=== PATIENT | male | born 1940 | race Caucasian/White ===

== ENCOUNTER 2016-08-25 12:56 | Emergency (ER) | payer OTHER, MEDICARE ==
[~2016-08-25 12:56] MED LIST: CLEAPOW6 PO; OXYC1SOL5 PO; RANI150 PO; RIVA10 PO; ZYRT10TA12 PO
[2016-08-25 13:20] VITALS: BP 173/81; PULSE 79; RESP 18; TEMP 97.6; O2SAT 96
[2016-08-25] MEDS ORDERED: ALLO100T PO (13:24)
[2016-08-25] MEDS ORDERED: ACETAMINOPHEN/HYDROcodone 325 MG/5 MG TAB PO ONE ×2 (13:30→15:30)
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
[2016-08-25 15:06] VITALS: PULSE 82; RESP 18; O2SAT 99
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
[2016-08-25] MEDS ORDERED: NAPROXEN 250 MG TAB PO ONE (15:30)
[2016-08-25] MEDS ORDERED: NAPR250T57 PO (15:32)
[2016-08-25] MEDS ORDERED: HYDR-3533 PO (15:32)
[2016-08-25] MEDS ORDERED: NAPROXEN 500 MG TAB PO ONE (16:30)
== END 2016-08-25 16:48 | disposition home or self-care (01) ==
LOC: NEPA 12:56
DX: M54.2 Cervicalgia (principal); M54.5 Low back pain; M25.552 Pain in left hip; Z96.642 Presence of left artificial hip joint; Z98.1 Arthrodesis status; V43.62XA Car passenger injured in collision with other type car in traffic accident, initial encounter; Y99.8 Other external cause status
CPT/HCPCS: 70450; 72072; 72110; 72125; 73502

== ENCOUNTER 2017-04-10 16:10 | Inpatient (IN) | payer MEDICARE ==
[2017-04-10] VITALS (9 sets, daily range): BP systolic 134–200; BP diastolic 74–98; PULSE 53–72; RESP 13–20; TEMP 97.7–98.2; O2SAT 95–98
[~2017-04-10] VITALS: Ht 182.9 cm; Wt 97.4 kg
[~2017-04-10 16:10] MED LIST changes: +ALLO100T PO; -CLEAPOW6 PO; +HYDR-3533 PO; +NAPR250T57 PO; -OXYC1SOL5 PO; -RANI150 PO; -RIVA10 PO; -ZYRT10TA12 PO
[2017-04-10] MEDS ORDERED: ALLO300T2 PO (16:35)
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
[2017-04-10] MEDS ORDERED: ONDANSETRON HCL 4 MG/2 ML VIAL IV PUSH ONE (17:30)
[2017-04-10] MEDS ORDERED: MECLIZINE HCL 25 MG TAB PO ONE (17:30)
[2017-04-10] MEDS ORDERED: cloNIDine HCL 0.1 MG TAB PO ONE (17:30)
[2017-04-10 17:44] LABS: AUTOMATED NEUTROPHIL # 2.6 TH/MM3 (1.8-7.7); BASOPHIL % 0.8 % (0.0-2.0); EOSINOPHIL # 0.2 TH/MM3 (0-0.4); EOSINOPHIL % 4.5 % (0.0-4.0); HEMATOCRIT 39.1 % (39.0-51.0); HEMO FLAGS DIFF FINAL; LYMPH % 29.3 % (9.0-44.0); LYMPHOCYTE # 1.3 TH/MM3 (1.0-4.8); MEAN CELL VOLUME 78.7 FL (80.0-100.0); MEAN CORPUSCULAR HEMOGLOBIN 26.6 PG (27.0-34.0); MEAN CORPUSCULAR HGB CONC 33.8 % (32.0-36.0); MONO % 8.8 % (0.0-8.0); NEUT % 56.6 % (16.0-70.0); PLATELET COUNT 140 TH/MM3 (150-450); RED BLOOD COUNT 4.97 MIL/MM3 (4.50-5.90); RED CELL DISTRIBUTION WIDTH 13.9 % (11.6-17.2); WHITE BLOOD COUNT 4.5 TH/MM3 (4.0-11.0)
[2017-04-10 17:53] LABS: CHLORIDE 106 MEQ/L (98-107); POTASSIUM 3.4 MEQ/L (3.5-5.1); SODIUM (NA) 140 MEQ/L (136-145)
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
[2017-04-10 17:57] LABS: ANION GAP 8 MEQ/L (5-15); BICARBONATE 26.1 MEQ/L (21.0-32.0); BLOOD UREA NITROGEN 13 MG/DL (7-18)
[2017-04-10 17:59] LABS: APTT (PATIENT) 25.7 SEC (24.3-30.1); PROTHROMBIN TIME - PATIENT 11.4 SEC (9.8-11.6)
[2017-04-10 18:00] LABS: ALT (GPT) 40 U/L (12-78); AST (GOT) 22 U/L (15-37); GLOMERULAR FILTRATION RATE 90 ML/MIN (>89)
[2017-04-10 18:01] LABS: TOTAL BILIRUBIN ADULT 0.6 MG/DL (0.2-1.0)
[2017-04-10 18:02] LABS: ALKALINE PHOSPHATASE 117 U/L (45-117)
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
[2017-04-10] MEDS ORDERED: ASPIRIN 325 MG TAB PO ONE (19:15)
[2017-04-10] MEDS ORDERED: SODIUM CHLORIDE 0.9% FLUSH 10 ML FLUSH IV FLUSH PRN (19:30)
[2017-04-10] MEDS ORDERED: SENNOSIDES 8.6 MG TAB PO PRN (19:30)
[2017-04-10] MEDS ORDERED: LACTULOSE SYRUP 20 GM/30 ML CUP PO PRN (19:30)
[2017-04-10] MEDS ORDERED: ONDANSETRON HCL 4 MG/2 ML VIAL IVP PRN (19:30)
[2017-04-10] MEDS ORDERED: MAGNESIUM HYDROXIDE SUSP 30 ML CUP PO PRN (19:30)
[2017-04-10] MEDS ORDERED: ACETAMINOPHEN 325 MG TAB PO PRN (19:30)
[2017-04-10] MEDS ORDERED: BISACODYL 10 MG SUPP RECTAL PRN (19:30)
[2017-04-10] MEDS ORDERED: MORPHINE SULFATE 4 MG/ML INJ IV PUSH PRN (19:30)
[2017-04-10] MEDS ORDERED: PILL SPLITTER OTHER PRN (20:00)
[2017-04-10] MEDS: SODIUM CHLOR 0.9% 1000 ML INJ 1,000 ML IV SCH (20:32)
[2017-04-10] MEDS: METOPROLOL TARTRATE 25 MG TAB PO SCH (21:31)
[2017-04-10] MEDS: SODIUM CHLORIDE 0.9% FLUSH 10 ML FLUSH IV FLUSH SCH (21:31)
[2017-04-10] MEDS: DOCUSATE SODIUM 50 MG/SENNA 8.6 MG TAB PO SCH (21:31)
[2017-04-11] VITALS (24 sets, daily range): BP systolic 115–186; BP diastolic 62–86; PULSE 53–76; RESP 15–32; TEMP 97.7–98.4; O2SAT 93–98
[2017-04-11] MEDS: SODIUM CHLOR 0.9% 1000 ML INJ 1,000 ML IV SCH ×2 (05:18→17:00)
[2017-04-11 08:26] LABS: CHLORIDE 106 MEQ/L (98-107); SODIUM (NA) 140 MEQ/L (136-145)
[2017-04-11 08:35] LABS: ANION GAP 6 MEQ/L (5-15); BICARBONATE 27.7 MEQ/L (21.0-32.0); BLOOD UREA NITROGEN 13 MG/DL (7-18)
[2017-04-11 08:37] LABS: ALT (GPT) 39 U/L (12-78); AST (GOT) 23 U/L (15-37); GLOMERULAR FILTRATION RATE 83 ML/MIN (>89)
[2017-04-11 08:38] LABS: TOTAL BILIRUBIN ADULT 0.8 MG/DL (0.2-1.0)
[2017-04-11] MEDS: ALLOPURINOL 300 MG TAB PO SCH (08:38)
[2017-04-11] MEDS: PRAVASTATIN SOD 40 MG TAB PO SCH (08:39)
[2017-04-11] MEDS: METOPROLOL TARTRATE 25 MG TAB PO SCH ×2 (08:39→20:24)
[2017-04-11] MEDS: ASPIRIN EC 81 MG TABEC PO SCH (08:39)
[2017-04-11] MEDS: DOCUSATE SODIUM 50 MG/SENNA 8.6 MG TAB PO SCH ×2 (08:39→20:24)
[2017-04-11 08:40] LABS: ALKALINE PHOSPHATASE 109 U/L (45-117); AUTOMATED NEUTROPHIL # 3.3 TH/MM3 (1.8-7.7); BASOPHIL % 0.5 % (0.0-2.0); EOSINOPHIL # 0.2 TH/MM3 (0-0.4); EOSINOPHIL % 3.9 % (0.0-4.0); HEMATOCRIT 38.9 % (39.0-51.0); HEMO FLAGS DIFF FINAL; LYMPH % 26.8 % (9.0-44.0); LYMPHOCYTE # 1.4 TH/MM3 (1.0-4.8); MEAN CORPUSCULAR HEMOGLOBIN 26.2 PG (27.0-34.0); MEAN CORPUSCULAR HGB CONC 33.2 % (32.0-36.0); MONO % 8.3 % (0.0-8.0); NEUT % 60.5 % (16.0-70.0); PLATELET COUNT 155 TH/MM3 (150-450); RED BLOOD COUNT 4.92 MIL/MM3 (4.50-5.90); RED CELL DISTRIBUTION WIDTH 13.7 % (11.6-17.2); WHITE BLOOD COUNT 5.3 TH/MM3 (4.0-11.0)
[2017-04-11] MEDS: SODIUM CHLORIDE 0.9% FLUSH 10 ML FLUSH IV FLUSH SCH ×2 (08:40→20:24)
[2017-04-11] MEDS ORDERED: INFLUENZA VIRUS VACCINE (QUADRIVALENT) 0.5 ML SYR IM ONE (10:00)
[2017-04-11] MEDS ORDERED: PNEUMOCOCCAL POLYVALENT INJ 25 MCG/0.5 ML SYR IM ONE (10:00)
[2017-04-11] MEDS ORDERED: LISINOPRIL 10 MG TAB PO SCH (12:15)
--- NOTE | 2017-04-11 13:28 | EKG ---
Date Performed: 04/10/2017 Time Performed: 20:15:59 PTAGE: 77 years EKG: SINUS BRADYCARDIA WITH FIRST DEGREE AV BLOCK RIGHT BUNDLE BRANCH BLOCK LEFT ANTERIOR FASCIC ULAR BLOCK ABNORMAL ECG PREVIOUS TRACING : 04/10/2017 17.31 DOCTOR: Meghan Ramirez Interpretating Date/Time 04/11/2017 13:27:24
--- NOTE | 2017-04-11 13:34 | EKG ---
Date Performed: 04/10/2017 Time Performed: 17:31:11 PTAGE: 77 years EKG: Sinus rhythm WITH SINUS ARRHYTHMIA WITH FIRST DEGREE AV BLOCK INTRAVENTRICULAR CONDUCTION DELAY ABNORMAL ECG PREVIOUS TRACING : 06/16/2011 11.47 Compared to prior tracing HR has increased, suspect interva l pacemker DOCTOR: Meghan Ramirez Interpretating Date/Time 04/11/2017 13:32:54
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
--- NOTE | 2017-04-11 17:44 | MB ---
cc: ZEYAD DURAN MD DATE OF CONSULTATION: 04/11/2017. REASON FOR CONSULTATION: Hypertension, elevated troponin. HISTORY OF PRESENT ILLNESS: The patient is very pleasant 77-year-old gentleman with no prior cardiac history who presents with a day or so of gait instability and generally feeling "dizzy" with some vague central chest tightness. He does admit to getting somewhat nervous about this and he drove to two different [employer] taking his blood pressure each time was elevated in the 180s and then presented to the emergency department where initial blood pressures were as high as 200/98. He was admitted to the ICU because his initial troponin was mildly elevated but the troponins have been flat and he has no further symptoms. He denies any further chest discomfort, lightheadedness, dizziness, shortness of breath.. PAST MEDICAL HISTORY: 1. Gout. 2. Osteoarthritis. 3. Lightheadedness. CURRENT MEDICATIONS: 1. Lisinopril 10 milligrams daily. 2. Aspirin 81 milligrams daily. 3. Pravachol 40 milligrams daily. 4. Lopressor 12.5 milligrams q. 12. ALLERGIES: NO KNOWN DRUG ALLERGIES. PHYSICAL EXAMINATION: VITAL SIGNS: Afebrile, pulse 76, respiratory rate 17, blood pressure 127/75, satting 95%. GENERAL: A pleasant well-appearing gentleman in no distress. NECK: No jugular venous distention. LUNGS: Clear to auscultation bilaterally. CARDIOVASCULAR: Regular rate and rhythm. No murmurs appreciated. ABDOMEN: Benign. EXTREMITIES: No edema. LABORATORY DATA: Sodium 140, potassium 4.0, chloride 106, bicarbonate 27.7, BUN 13, creatinine 0.89, glucose 107. Troponins are flat at 0.18 x4. White count 5.3, hematocrit 38.9, platelets 155,000. IMAGING STUDIES: Head CT showed no acute findings. Chest x-ray showed minimal atelectasis. EKGS: EKG showed sinus rhythm without any acute S-T or T wave changes. IMPRESSION: Elevated troponin. The patient's mild / flat troponin elevation is not consistent with acute coronary syndrome and most likely due to his elevated blood pressures. I do think he has some element of hypertension / anxiety spiral and I counselled the patient against over-taking his blood pressure. I do think it is reasonable to start him on low-dose Losartan for blood pressure control. To exclude ischemia, I will have him undergo a nuclear stress test tomorrow. Should the patient's blood pressure remain reasonably controlled and his stress test be nonischemic, he can be discharged home tomorrow. I will follow up with him in my office in a week or two for ongoing management. Thank you again for the opportunity to participate in this patient's care. MD BEBO Sandra/AMADA /5:00 PM /5:33 PM
[2017-04-12] VITALS (20 sets, daily range): BP systolic 135–171; BP diastolic 75–79; PULSE 53–71; RESP 16–24; TEMP 97.8–98.6; O2SAT 94–96
[2017-04-12] MEDS: SODIUM CHLOR 0.9% 1000 ML INJ 1,000 ML IV SCH ×3 (01:18→20:09)
[2017-04-12] MEDS: SODIUM CHLORIDE 0.9% FLUSH 10 ML FLUSH IV FLUSH SCH ×2 (09:00→20:08)
[2017-04-12] MEDS: LOSARTAN 50 MG TAB PO SCH (09:03)
[2017-04-12] MEDS: DOCUSATE SODIUM 50 MG/SENNA 8.6 MG TAB PO SCH ×2 (09:03→20:09)
[2017-04-12] MEDS: PRAVASTATIN SOD 40 MG TAB PO SCH (09:03)
[2017-04-12] MEDS: ASPIRIN EC 81 MG TABEC PO SCH (09:03)
[2017-04-12] MEDS: ALLOPURINOL 300 MG TAB PO SCH (09:04)
[2017-04-12 09:58] LABS: HDL CHOLESTEROL 31.4 MG/DL (40.0-60.0)
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
[2017-04-12] MEDS ORDERED: COZA50TA PO (11:32)
[2017-04-12] MEDS ORDERED: LIPI40TA PO (11:32)
[2017-04-12] MEDS ORDERED: ASPI-99 PO (11:32)
[2017-04-12] MEDS ORDERED: REGADENOSON INJ 0.4 MG/5 ML SYR IV ONE (11:56)
--- NOTE | 2017-04-12 13:08 | RADRPT ---
EXAM DATE/TIME: 04/12/2017 11:23 [facility] COMPARISON: No previous studies available for comparison. INDICATIONS : Elevated troponins with chest pain and dizziness for one day. Angina. DOSE: 26.1 mCi Tc99m Myoview at stress. 8.7 mCi Tc99m Myoview at rest. 0.4 mg Lexiscan STRESS SYMPTOMS: Shortness of breath. EJECTION FRACTION: 68% MEDICAL HISTORY : Gastroesophageal reflux disease. Osteoarthritis. SURGICAL HISTORY : Fusion, lumbar. ENCOUNTER: Initial ACUITY: 1 day PAIN SCALE: 5/10 LOCATION: Midsternal chest TECHNIQUE: The patient underwent pharmacologic stress with infusion of prescribed dose. Continuous ECG tracing was monitored during stress. Gated SPECT imaging was performed after stress and conventional SPECT i maging was performed at rest. The examination was performed on a SPECT/CT scanner, both attenuation and non-corrected datasets were reviewed. FINDINGS: DISTRIBUTION: The maximum perfused segment at stress is in the septal wall. PERFUSION STUDY: The pattern of perfusion at stress shows 10% redistribution in segments of the anterior wall with one image showing 20% redistribution in the mid anterior wall. This is identified on both the short axis and vertical long axis views and may represent a very small area of ischemia. GATED STUDY: There is intact wall motion and thickening without hypokinetic or dyskinetic segments. CONCLUSION: 1. Scintigraphic findings suggest a very small area of ischemia in the mid LAD distribution. 2. Excellent wall motion throughout with an estimated ejection fraction of 68%. RISK CATEGORY: Intermediate (1-3% Annual Mortality Rate) Fortino Huerta MD on April 12, 2017 at 12:33 Board Certified Radiologist. This report was verified electronically.
--- NOTE | 2017-04-12 16:55 | PD.CARD.PN ---
Subjective Subjective Remarks Pt feels well, no complaints. Objective Medications Current Medications Medications (Trade) Dose Ordered Sig/Popeye Route Start Time Stop Time Status Last Admin (Ecotrin Ec) 81 mg DAILY PO 04/11/17 09:00 04/12/17 09:03 (Pravachol) 40 mg DAILY PO 04/11/17 09:00 04/12/17 09:03 Sodium Chloride 1,000 ml @ 100 mls/hr Q10H IV 04/10/17 19:18 04/12/17 01:18 (NS Flush) 2 ml UNSCH PRN IV FLUSH 04/10/17 19:30 (NS Flush) 2 ml BID IV FLUSH 04/10/17 21:00 04/10/17 21:31 (Zofran Inj) 4 mg Q6H PRN IVP 04/10/17 19:30 (Tylenol) 650 mg Q6H PRN PO 04/10/17 19:30 (Percocet 5-325 Mg) 1 tab Q6H PRN PO 04/10/17 19:30 (Morphine Inj) 2 mg Q3H PRN IV PUSH 04/10/17 19:30 (Carrie-Colace) 1 tab BID PO 04/10/17 21:00 04/12/17 09:03 (Milk Of Magnesia Liq) 30 ml Q12H PRN PO 04/10/17 19:30 (Senokot) 17.2 mg Q12H PRN PO 04/10/17 19:30 (Dulcolax Supp) 10 mg DAILY PRN RECTAL 04/10/17 19:30 (Lactulose Liq) 30 ml DAILY PRN PO 04/10/17 19:30 (Zyloprim) 300 mg DAILY PO 04/11/17 09:00 04/12/17 09:04 (Pill Splitter) 1 ea UNSCH PRN OTHER 04/10/17 20:00 04/11/17 20:26 (Cozaar) 50 mg DAILY PO 04/12/17 09:00 04/12/17 09:03 (Lopressor) 50 mg Q12HR PO 04/12/17 21:00 UNV Vital Signs / I&O Vital Signs Date Time Temp Pulse Resp B/P (MAP) Pulse Ox O2 Delivery O2 Flow Rate FiO2 04/12/17 16:00 63 04/12/17 16:00 66 18 160/77 (104) 96 04/12/17 15:00 67 04/12/17 14:00 63 04/12/17 13:00 64 04/12/17 12:30 65 18 171/75 (107) 94 04/12/17 10:00 58 04/12/17 09:00 56 04/12/17 08:00 54 04/12/17 08:00 97.8 55 18 152/77 (102) 94 04/12/17 07:00 54 04/12/17 06:00 53 04/12/17 05:00 54 04/12/17 04:00 97.9 57 24 135/77 (96) 96 04/12/17 04:00 57 04/12/17 03:00 71 04/12/17 02:00 58 04/12/17 01:00 58 04/12/17 00:00 56 04/11/17 23:00 55 17 93 04/11/17 23:00 55 04/11/17 22:00 55 04/11/17 21:00 62 04/11/17 20:00 76 04/11/17 19:00 98.0 66 26 115/62 (79) 97 04/11/17 19:00 60 04/11/17 18:00 64 04/11/17 17:00 56 I/O 04/11/17 04/11/17 04/11/17 04/12/17 04/12/17 04/12/17 07:00 15:00 23:00 07:00 15:00 23:00 Intake Total 968 ml 1928 ml 1300 ml Output Total 350 ml 800 ml 800 ml Balance 618 ml 1128 ml 500 ml Intake Oral 120 ml 960 ml 0 ml IV Total 848 ml 968 ml 1300 ml Output Urine Total 350 ml 800 ml 800 ml # Bowel Movements 0 0 Physical Exam GENERAL: This is a well-nourished, well-developed patient, in no apparent distress. CARDIOVASCULAR: Regular rate and rhythm without murmurs, gallops, or rubs. RESPIRATORY: Clear to auscultation. Breath sounds equal bilaterally. No wheezes , rales, or rhonchi. GASTROINTESTINAL: Abdomen soft, non-tender, nondistended. Normal active bowel sounds MUSCULOSKELETAL: Extremities without clubbing, cyanosis, or edema. NEURO: Alert & Oriented x4 to person, place, time, situation. Moves all ext x4 Laboratory Laboratory Tests Test 04/12/17 04:18 Triglycerides Level 166 MG/DL Cholesterol Level 169 MG/DL LDL Cholesterol 104 MG/DL HDL Cholesterol 31.4 MG/DL Cholesterol/HDL Ratio 5.38 RATIO Imaging Last 24 hours Impressions Myocardial Perfusion Scan Nuc Med 04/12/17 0000 Signed Impressions: Service Date/Time: Wednesday, April 12, 2017 11:23 - CONCLUSION: 1. Scintigraphic findings suggest a very small area of ischemia in the mid LAD distribution. 2. Excellent wall motion throughout with an estimated ejection fraction of 68%%. RISK CATEGORY: Intermediate (1-3%% Annual Mortality Rate) Fortino Huerta MD Assessment and Plan Problem List: (1) Abnormal nuclear cardiac imaging test ICD Codes: R93.1 - Abnormal findings on diagnostic imaging of heart and coronary circulation Plan: Small anterior; discussed all options including medical mgt; pt/ uncomfortable w/ med mgt and want cath; has some exertional fatigue not clearly chest pain (2) Elevated troponin ICD Codes: R74.8 - Abnormal levels of other serum enzymes Status: Acute (3) Hypertensive urgency ICD Codes: I16.0 - Hypertensive urgency Plan: added low dose bb w/ hold parameters Assessment and Plan Will transfer and discuss cath with one of my partners. Duong Joiner MD Apr 12, 2017 16:55
[2017-04-12] MEDS: METOPROLOL TARTRATE 50 MG TAB PO SCH (20:09)
[2017-04-13] VITALS (11 sets, daily range): BP systolic 150–214; BP diastolic 70–95; PULSE 56–63; RESP 16–18; TEMP 97.9–98.7; O2SAT 94–97
[2017-04-13] MEDS ORDERED: HEPARIN-NS/PF INJ 1,500 ML ONE (08:40)
[2017-04-13] MEDS ORDERED: MIDAZOLAM HCL 2 MG/2 ML VIAL ONE (08:41)
[2017-04-13] MEDS ORDERED: NITROGLYCERIN INJ 5 ML ONE (08:41)
[2017-04-13] MEDS ORDERED: VERAPAMIL HCL 5 MG/2 ML VIAL ONE ×2 (08:41→09:48)
[2017-04-13] MEDS ORDERED: HEPARIN SODIUM - IV 10,000 UNITS/10 ML VIAL ONE (08:41)
[2017-04-13] MEDS: ASPIRIN EC 81 MG TABEC PO SCH (09:00)
[2017-04-13] MEDS: METOPROLOL TARTRATE 50 MG TAB PO SCH ×2 (09:00→20:51)
[2017-04-13] MEDS: PRAVASTATIN SOD 40 MG TAB PO SCH (09:00)
[2017-04-13] MEDS: DOCUSATE SODIUM 50 MG/SENNA 8.6 MG TAB PO SCH ×2 (09:00→20:51)
[2017-04-13] MEDS: ALLOPURINOL 300 MG TAB PO SCH (09:00)
[2017-04-13] MEDS: LOSARTAN 50 MG TAB PO SCH (09:00)
[2017-04-13] MEDS ORDERED: ceFAZolin INJ 1,000 MG VIAL ONE (09:51)
--- NOTE | 2017-04-13 10:45 | CATHPROC ---
[employer] HIS Report Study Information Study Number Admission Scheduled Start Study Start [id number] Apr 10 2017 7:21PM 04/12/2017 Apr 13 2017 8:02AM [place] [facility] Cardiac Catheterization Admit Source Facility Department Transfer in from another acute care facility [facility] - [facility] Physician and Clinical Staff Initial [facility] Practice Administratormarion Billingsley RN, Musa Moya RN Recorder Mariely Miranda,RT(R) Scr[employer]y [employer] RCIS(BS) Procedures Performed Procedure Location (Site) Vessel Name Coronary Angiograms LCA Left Coronary Coronary Angiograms RCA Right Coronary L Heart Cath Wire insertion Radial (right) Radial Art. Equipment Time Junior Sales Assistant Description Size Mfg Part Number Used/Scraped [id number] 09:56 [employer] MEDICAL WIRE, NITONOL 80CM 80CM Used *[id number] TRANSDUCER, TRUWAVE [id number] 08:55 PRICE COELHO * Used W/STOCKCOCK *[id number] 534-676T *[id number] 534-676T *[id number] 534-518T *[id number] 534-618T *[id number] 534-620T *[id number] 534-521T *[id number] 08:55 [employer] PACK, CCL CUSTOM * Used *[id number] 08:55 [employer] SUPPORT, ARTERIAL ADULT [id number] *[id number] Used BAND, RADIAL COMPRESSION TR [id number] 10:18 [employer] MEDICAL 29CM Used LARGE 29 *[id number] 08:55 RF Code WIRE, EXCHANGE 260CM 3MMJ 260CM Used *[id number] 08:55 NAMIC MANIFOLD, 4 PORT * Used *[id number] 08:55 NYCOMED OMNIPAQUE, 350 MG, 150ML 150ML [id number] Used [id number] 08:55 [employer] MEDICAL BLANKET,WARM AIR CCL * Used *[id number] SHEATH, FR6 TRANSRADIAL [id number] 08:55 TERContestMachine FR 6 Used SLENDER 10CM *[id number] History: Current Medications Medication Dosage/Unit Route Frequency Last Date/Time Taken ASA Statins (any) Allopurinol History: Allergies Allergy Reaction No Known Allergies History: Risk Factors Family History of Hypertension Dyslipidemia Previous TN Previous Heart Failure Premature CAD Yes Yes No No No Prior Valve Prior PCI Prior CABG Surgery No No No Cerebrovascular Peripheral Artery Chronic Lung On Dialysis Diabetes Disease Disease Disease No No No No No History: Symptoms/Diagnosis Selection Items Chest pain SOB History: Stress Tests Stress or Imaging Studies Performed Yes Standard Exercise Stress Test No Stress Echo No Stress Test SPECT Stress Test SPECT Result Stress Test SPECT Ischemia Risk/Extent Yes Positive Intermediate Stress Test CMR No Cardiac CTA Coronary Calcium Score No No History: Other Disease Selection Items HTN History: Other Current Smoker No Labs Hgb (g/dl) Hct (%) WBC (l/cumm) Platelets (thousands) 11.60-17.00 35.00-51.00 4.00-11.00 150.00-450.00 12.9 38.9 5.3 155 Glucose (mg/dl) BUN (mg/dl) Creatinine (mg/dl) BUN:Creatinine (1:x) 74.00-106.00 7.00-18.00 0.50-1.30 10.00-20.00 107 13 0.9 14.4 Na (meq/l) K (meq/l) 136.00-145.00 3.50-5.10 140 4 INR (PTT:PT) 0.90-1.10 1 Troponin I (ng/ml) CPK (u/l) 0.02-0.05 26.00-308.00 0.2 67 Medication Medication Total Dose (Bolus/Oral) Medication Total Dosage/Unit 1% XYLOCAINE 20 mL FENTANYL 25 mcg RADIAL COCKTAIL 5 mL (Bolus) VERSED 0.5 mg Medications (Bolus/Oral) Medication Time Given Dosage/Unit Administered By Reason FENTANYL 04/13/2017 8:59:00 AM 25 mcg Ky Billingsley RN 25 mcg FENTANYL given in lab by Ky Billingsley RN via Peripheral IV. VERSED 04/13/2017 9:00:31 AM 0.5 mg yK Billingsley RN 0.5 mg VERSED given in lab by Ky Billingsley RN via Peripheral IV. 1% XYLOCAINE 04/13/2017 9:00:45 AM 20 mL Pietro Menon 20 mL 1% XYLOCAINE given in lab by Pietro Menon in Right Radial via Subcutaneous. Ntg 200mcg Verapamil 2.5mg Heparin RADIAL COCKTAIL 04/13/2017 9:02:30 AM 5 mL (Bolus) Pietro Menon 3000U 5 mL (Bolus) RADIAL COCKTAIL given in lab by Pietro Menon via Radial. Using [Solution Name]. R hal: Ntg 200mcg Verapamil 2.5mg Heparin 3000U. HEPARIN 4000U Medication (Drip) Medication Time Given Dosage/Unit Concentration/Unit Diluent (ml) Solution ANCEF 04/13/2017 9:55:29 AM 1 g 1 g ANCEF given in lab by Ky Billingsley RN via Peripheral IV. IV Solutions 04/13/2017 8:33:51 AM 0 mL (IV) 500 NaCl .9 Patient arrived on IV Solutions in Left Antecubital via Peripheral IV. Pump/Drip Flow = 20 ml/hr usin g NaCl .9. Initial Case Assessment Cardiovascular HR Rhythm NIBP Chest Pain 65 reg 184/8 0 Edema Present Skin color Skin None Normal Warm Circulatory - Right Pulses Dorsalis Pedis Femoral Radial 1 3 3 Scale (0,1,2,3,4,d) Scale (0,1,2,3,4,d) Circulatory - Lower Extremities Color Lower Right Normal Neurological State Oriented to time-place- Alert Moves all extremities person Respiration - General Respiration Rate SpO2 (%) (B/min) 22 97 Final Case Assessment Cardiovascular HR Rhythm NIBP Chest Pain 60 REG 173/83 0 Edema Present Skin color Skin None Normal Warm Circulatory - Right Pulses Dorsalis Pedis Femoral Radial 2 3 3 Scale (0,1,2,3,4,d) Scale (0,1,2,3,4,d) Circulatory - Lower Extremities Color Lower Right Normal Neurological State Oriented to time-place- Alert Moves all extremities person Respiration - General Respiration Rate SpO2 (%) (B/min) 15 95 Chronological Log Time Study Chronological Log 8:33:32 Patient arrived via Bed. 8:33:33 Patient Name, D.O.B, / Armband Verified By R.N. 8:33:34 Consent signed by the physician and the patient and verified by the [facility] Aud[facility] staff. 8:33:34 Pre-op and post- op instructions given; patient acknowledges understanding of instructions. 8:33:35 Verbal Stimulation=2 Physical Stimulation=2 Airway=2 Respiration=2 TOTAL=8. (0=absent, 1=li mited, 2=present) 8:33:37 Allens test performed on the right radial and ulnar artery. 8:33:42 Patient has been NPO for More than 6Hrs. 8:33:43 Skin Breakdown-RIGHT GROIN RED 8:33:45 Patient Warmer Placed on the Table. 8:33:51 A # 20 IV was noted in the Antecubital (left). Grade = 0 8:33:51 Patient arrived on IV Solutions in Left Antecubital via Peripheral IV. Pump/Drip Flow = 20 ml/hr using NaCl .9. 8:33:52 History and physical on the chart or being dictated. Assessment: Initial Case, HR=65 BPM, Rhythm=reg, YWHB=194/8 mmhg, Chest Pain=0, Edema=None, Col or=Normal, Skin = Warm Right Pulses: Isidro Ped=1, Femoral=3, Radial=3 8:33:53 Lower Right Extremities: Color=Normal Neurological: State=Alert, Ox3, [place] Respiration: Resp=22 B/min, SpO2=97 % Vitals capture started with the following parameters, Patient=Adult, Interval=5 min, Initial Pr deyjnn=650 mmHg, 8:44:04 Deflation Rate=5 mmHg, Cuff placed on left Arm 8:44:46 Reference ECG taken 8:45:22 HR=61 bpm, TXIW=185/87 mmhg, SpO2=96.0 %, Resp=19 B/min, Pain=0, Chema=10, Menjivar=2 8:50:29 HR=62 bpm, JXTD=024/86 mmhg, SpO2=96.0 %, Resp=19 B/min, Pain=0, Chema=10, Menjivar=2 8:55:03 MD arrived. 8:55:06 Right radial, right brachial, and groin(s) prepped with 2% chlorhexidine, and draped after a 3 min. waiting time. 8:56:14 HR=62 bpm, TBVY=979/93 mmhg, SpO2=96.0 %, Resp=19 B/min, Pain=0, Chema=10, Menjivar=2 8:57:26 Pressure channel 1 zeroed. 8:59:00 25 mcg FENTANYL given in lab by Ky Billingsley RN via Peripheral IV. Time Out. Correct patient, correct procedure, correct physician, power injector not loaded with contrast with surgical 8:59:21 team present. Time Out Concurred by MD and individual staff in procedure. 8:59:29 Case Start 8:59:47 HR=64 bpm, XSPP=548/103 mmhg, SpO2=96.0 %, Resp=17 B/min, Pain=0, Chema=10, Menjivar=2 9:00:31 0.5 mg VERSED given in lab by Ky Billingsley RN via Peripheral IV. 9:00:45 20 mL 1% XYLOCAINE given in lab by Pietro Menon in Right Radial via Subcutaneous. 9:01:51 Access site was Radial Artery. RIGHT 9:02:10 A wire was inserted via Radial (right). A SHEATH, FR6 TRANSRADIAL SLENDER 10CM FR 6 was advanced into the Radial (right) using the Percu taneous 9:02:22 technique. 5 mL (Bolus) RADIAL COCKTAIL given in lab by Pietro Menon via Radial. Using [Solution Nam e]. Reason: Ntg 9:02:30 200mcg Verapamil 2.5mg Heparin 3000U. HEPARIN 4000U A JR 4.0 INFINITI CATHETER FR 5 was advanced over a wire. OMNIPAQUE, 350 MG, 150ML 150ML was use d for 9:03:01 injections. Recorded Pressure: Ao, HR=65, Condition=Condition 1 9:04:35 (Aorta) Ao 139/69/99 9:04:52 HR=61 bpm, XORO=431/79 mmhg, SpO2=92.0 %, Resp=17 B/min, Pain=0, Chema=10, Menjivar=2 9:09:38 HR=60 bpm, FULA=044/76 mmhg, SpO2=91.0 %, Resp=18 B/min, Pain=0, Chema=10, Menjivar=2 9:10:09 BLOOD PRESSURE CUFF IS ON SAME SIDE O2 SAT 9:14:44 HR=58 bpm, TTRW=781/75 mmhg, SpO2=91.0 %, Resp=15 B/min, Pain=0, Chema=10, Menjivar=2 9:15:22 REBOOT IN PROGRESS 9:19:43 HR=58 bpm, FMRW=509/87 mmhg, SpO2=93 %, Resp=17 B/min, Pain=0, Chema=10, Menjivar=2 9:24:46 HR=58 bpm, CYZN=354/88 mmhg, SpO2=92.0 %, Resp=18 B/min, Pain=0, Chema=10, Menjivar=2 9:24:55 DR SCRUBBED BACK IN A 3DRC INFINITI CATHETER FR 6 was advanced over a wire. OMNIPAQUE, 350 MG, 150ML 150ML was used for 9:26:40 injections. 9:28:44 NO COMMUNICATION WITH XRAY. PATIENT BEING MOVED TO ANOTHER ROOM 9:29:38 Vitals capture stopped. Vitals capture started with the following parameters, Patient=Adult, Interval=5 min, Initial Pre rudcw=698 mmHg, 9:40:32 Deflation Rate=5 mmHg 9:41:10 HR=62 bpm, VRFN=828/86 mmhg, SpO2=95.0 %, Resp=17 B/min, Pain=0, Chema=10, Menjivar=2 9:43:56 Reference ECG taken 9:44:28 pt in lab 5 9:46:13 HR=59 bpm, APRS=381/79 mmhg, SpO2=94.0 %, Resp=15 B/min, Pain=0, Chema=10, Menjivar=2 9:51:14 HR=59 bpm, FDNS=433/79 mmhg, SpO2=94.0 %, Resp=17 B/min, Pain=0, Chema=10, Menjivar=2 9:53:25 Pressure channel 1 zeroed. Time Out. Correct patient, correct procedure, correct physician, power injector not loaded with contrast with surgical 9:55:26 team present. Time Out Concurred by MD and individual staff in procedure. 9:55:29 1 g ANCEF given in lab by Ky Billingsley RN via Peripheral IV. 9:56:13 HR=57 bpm, ABER=628/80 mmhg, SpO2=95.0 %, Resp=18 B/min, Pain=0, Chema=10, Menjivar=2 9:56:13 Case Start A SHEATH, FR6 TRANSRADIAL SLENDER 10CM FR 6 was exchanged in the Radial (right). This was brooke sahu in order 9:56:52 to insure sterility. A 3DRC INFINITI CATHETER FR 6 was advanced over a wire. OMNIPAQUE, 350 MG, 150ML 150ML was used for 9:58:30 injections. Recorded Pressure: Ao, HR=61, Condition=Condition 1 10:00:54 (Aorta) Ao 157/65/103 10:01:10 HR=59 bpm, VHER=052/82 mmhg, SpO2=95.0 %, Resp=19 B/min, Pain=0, Chema=10, Menjivar=2 10:03:57 The RCA was injected and visualized at various angles. OMNIPAQUE, 350 MG, 150ML 150ML used . After removing the current catheter a JL 4.0 INFINITI CATHETER FR 6 was advanced over a WIRE, E XCHANGE 260CM 10:06:00 3MMJ 260CM. 10:06:11 HR=63 bpm, OYJK=410/80 mmhg, SpO2=94.0 %, Resp=18 B/min, Pain=0, Chema=10, Menjivar=2 After removing the current catheter a JL 3.5 INFINITI CATHETER FR 6 was advanced over a WIRE, E XCHANGE 260CM 10:10:21 3MMJ 260CM. 10:11:49 HR=60 bpm, JNDA=410/80 mmhg, SpO2=95.0 %, Resp=17 B/min, Pain=0, Chema=10, Menjivar=2 10:14:34 The LCA was injected and visualized at various angles. OMNIPAQUE, 350 MG, 150ML 150ML used . 10:16:13 HR=59 bpm, TQXZ=814/73 mmhg, SpO2=95.0 %, Resp=18 B/min, Pain=0, Chema=10, Menjivar=2 10:17:44 Catheter was removed OVER A WIRE Assessment: Final Case, HR=60 BPM, Rhythm=REG, QVEU=870/83 mmhg, Chest Pain=0, Edema=None, Glasgow r=Normal, Skin = Warm Right Pulses: Isidro Ped=2, Femoral=3, Radial=3 10:20:54 Lower Right Extremities: Color=Normal Neurological: State=Alert, Ox3, [place] Respiration: Resp=15 B/min, SpO2=95 % 10:21:14 HR=64 bpm, SLQX=219/83 mmhg, SpO2=95.0 %, Resp=13 B/min, Pain=0, Chema=10, Menjivar=2 10:21:39 Catheter(s) removed without difficulty Radial Compression Device Used. 14 mLs of air placed in BAND, RADIAL COMPRESSION TR LARGE 29 29 CM. Affected 10:21:43 hand 97 % O2 saturation. 10:22:08 Case End 10:22:14 Sterile dressing applied to site 10:22:14 No case complications noted. 10:22:17 Cine recording checked. 10:22:19 Bedside Report will be given. 10:22:22 Contrast Scanned 10:22:28 Verbal Stimulation=2 Physical Stimulation=2 Airway=2 Respiration=2 TOTAL=8. (0=absent, 1=li mited, 2=present) 10:22:54 A Left Heart Cath was performed. 10:22:59 Clinical correlaton risk stratification. End Study - Contrast Media Used In Study Contrast Total Opened (mL) Total Used (mL) Total Wasted (mL) Omnipaque 110 110 0 End Study - Maximum Contrast Load Max Contrast Load (mL) 544.4 End Study - Radiation Exposure Fluoro Time (minutes) 3.0 End Study - Sheaths Sheaths Pulled By Sheath Hold Time (min) Pietro Menon End Study - Patient Disposition Complications Transferred To Interventional Outcome Not selected Outpatient Bed No attempt made
--- NOTE | 2017-04-13 11:04 | MA ---
cc: PIETRO GALAVIZ DO DATE: 04/13/2017 PROCEDURE Coronary angiogram, moderate sedation 75 minutes. PREPROCEDURE DIAGNOSIS Chest pain, abnormal stress test. POSTPROCEDURE DIAGNOSIS Multivessel coronary artery disease. MEDICATIONS Fentanyl 25 mcg, Versed 0.5 mg, Ancef one gram, nitro 200 mcg, verapamil 2.5 mg, heparin 4000 units. CONTRAST USED 110 cc. FLUOROSCOPY TIME 8.2 minutes. SEDATION Moderate sedation, 75 minutes. ESTIMATED BLOOD LOSS 10 cc. PROCEDURAL SUMMARY Orlando Arnold is a pleasant 77-year-old male who originally presented to [facility] due to chest pressure and headache. He was found to be quite hypertensive with a mildly elevated troponin. Because of this he was recommended stress testing and during this was found to have anterior ischemia. Because of this he was recommended cardiac catheterization. Risks, benefits and alternatives were explained to him and he consented as such. He was brought to the lab and prepped in the usual sterile fashion. The right radial artery was accessed using a modified Seldinger technique and placement of a 5/6 Argentine sheath. This was easily aspirated and flushed. A JR4 was advanced over a J-wire to the ascending aorta, but was unable to cross the valve or engage the right coronary artery. This was then exchanged out for a 6 Argentine 3-D RC which was placed in the aortic root. At this time the laborer brush clearing system shut down and it was reset, but was unable to be restarted at the time and so everything was removed and Tegaderm was placed over his radial sheath. Upon setting up in another room the radial sheath was re-scrubbed and then exchanged out for a new 5/6 Argentine sheath. The patient was given a gram of Ancef. A new 3-D RC was then advanced to the ascending aorta and used for selective angiography of the right coronary artery. This was exchanged out for a JL4 which was unable to engage the left main and so this was exchanged out for a JL 3.5 which was used for selective angiography of the left coronary artery system. The JL 3.5 was removed over a J-wire. A radial band was placed over the arteriotomy site for hemostasis. The patient left the laborer brush clearing cardiovascularly stable. FINDINGS Left Main: Normal size vessel with adequate reflux and no disease. It bifurcates into an LAD and circumflex. LAD: Normal size vessel with the midportion having tandem lesions of 90% with a qfy-sv-ifxkom lesion of 70%. It gives off two major diagonals with the second diagonal being larger and having a 70% lesion. Left Circumflex: Normal size vessel with mild luminal irregularities throughout the proximal portion and then an 80% lesion in the midportion. It gives off one obtuse marginal which has an 80% lesion. RCA: Normal size vessel with mild luminal irregularities. It is a dominant vessel by nature and there is an 80% lesion in the PDA. IMPRESSION 1. Multivessel disease as above. 2. Accelerated hypertension. 3. Chest tightness on arrival with mildly elevated troponins. RECOMMENDATIONS 1. Mr. Arnold appears to have multivessel disease and because of this he will be recommended consideration of cardiothoracic surgery. 2. Will check an echo to look at his overall left ventricular function, cardiac structure and possible valvulopathies in anticipation of CT surgery. 3. Will discuss this with the patient and the surgeon about timing of surgery. 4. Further recommendations will be made after CT surgery evaluation. Thank you for allowing me to see Orlando Arnold. If there are any questions, please do not hesitate to call. Pietro Galaviz DO VGP/BT /10:36 AM /10:51 AM
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
[2017-04-13] MEDS ORDERED: IOHEXOL 350 MG/ML 100 ML BTL (for Cath Lab) OTHER ONE (13:47)
[2017-04-13] MEDS ORDERED: IOHEXOL 350 MG/ML 50 ML BTL (for Cath Lab) OTHER ONE (13:47)
[2017-04-13] MEDS: cefTRIAXone INJ 1,000 MG in SODIUM CHLORIDE 0.9% INJ 100 ML IV SCH (16:23)
--- NOTE | 2017-04-13 17:00 | PD.CARD.PN ---
Subjective Subjective Remarks Pt feels well, no complaints, cath results noted Objective Medications Current Medications Medications (Trade) Dose Ordered Sig/Popeye Route Start Time Stop Time Status Last Admin (Ecotrin Ec) 81 mg DAILY PO 04/11/17 09:00 04/13/17 09:00 (Pravachol) 40 mg DAILY PO 04/11/17 09:00 04/13/17 09:00 Sodium Chloride 1,000 ml @ 100 mls/hr Q10H IV 04/10/17 19:18 04/12/17 20:09 (NS Flush) 2 ml UNSCH PRN IV FLUSH 04/10/17 19:30 (NS Flush) 2 ml BID IV FLUSH 04/10/17 21:00 04/12/17 20:08 (Zofran Inj) 4 mg Q6H PRN IVP 04/10/17 19:30 (Tylenol) 650 mg Q6H PRN PO 04/10/17 19:30 (Percocet 5-325 Mg) 1 tab Q6H PRN PO 04/10/17 19:30 (Morphine Inj) 2 mg Q3H PRN IV PUSH 04/10/17 19:30 (Carrie-Colace) 1 tab BID PO 04/10/17 21:00 04/13/17 09:00 (Milk Of Magnesia Liq) 30 ml Q12H PRN PO 04/10/17 19:30 (Senokot) 17.2 mg Q12H PRN PO 04/10/17 19:30 (Dulcolax Supp) 10 mg DAILY PRN RECTAL 04/10/17 19:30 (Lactulose Liq) 30 ml DAILY PRN PO 04/10/17 19:30 (Zyloprim) 300 mg DAILY PO 04/11/17 09:00 04/13/17 09:00 (Pill Splitter) 1 ea UNSCH PRN OTHER 04/10/17 20:00 04/11/17 20:26 (Cozaar) 50 mg DAILY PO 04/12/17 09:00 04/13/17 09:00 (Lopressor) 50 mg Q12HR PO 04/12/17 21:00 04/13/17 09:00 Ceftriaxone Sodium 1000 mg/ Sodium Chloride 100 ml @ 200 mls/hr Q24H IV 04/13/17 15:00 04/13/17 16:23 Vital Signs / I&O Vital Signs Date Time Temp Pulse Resp B/P (MAP) Pulse Ox O2 Delivery O2 Flow Rate FiO2 04/13/17 10:37 96 Room Air 04/13/17 07:50 57 18 214/95 (134) 97 04/13/17 04:00 98.1 58 16 175/76 (109) 97 04/13/17 00:00 98.6 56 16 152/78 (102) 94 04/13/17 00:00 56 04/12/17 20:15 59 04/12/17 20:00 98.6 59 16 156/79 (104) 95 04/12/17 18:00 70 04/12/17 17:00 63 I/O 04/12/17 04/12/17 04/12/17 04/13/17 04/13/17 04/13/17 07:00 15:00 23:00 07:00 15:00 23:00 Intake Total 1300 ml 480 ml 1000 ml Output Total 800 ml 1100 ml 1200 ml Balance 500 ml -620 ml -200 ml Intake Oral 0 ml 480 ml IV Total 1300 ml 1000 ml Output Urine Total 800 ml 1100 ml 1200 ml # Voids 4 # Bowel Movements 0 0 Physical Exam GENERAL: This is a well-nourished, well-developed patient, in no apparent distress. CARDIOVASCULAR: Regular rate and rhythm without murmurs, gallops, or rubs. RESPIRATORY: Clear to auscultation. Breath sounds equal bilaterally. No wheezes , rales, or rhonchi. GASTROINTESTINAL: Abdomen soft, non-tender, nondistended. Normal active bowel sounds MUSCULOSKELETAL: Extremities without clubbing, cyanosis, or edema. NEURO: Alert & Oriented x4 to person, place, time, situation. Moves all ext x4 Imaging Last Impressions Myocardial Perfusion Scan Nuc Med 04/12/17 0000 Signed Impressions: Service Date/Time: Wednesday, April 12, 2017 11:23 - CONCLUSION: 1. Scintigraphic findings suggest a very small area of ischemia in the mid LAD distribution. 2. Excellent wall motion throughout with an estimated ejection fraction of 68%%. RISK CATEGORY: Intermediate (1-3%% Annual Mortality Rate) Fortino Huerta MD Head CT 04/10/17 7079 Signed Impressions: Service Date/Time: Monday, April 10, 2017 17:37 - CONCLUSION: 1. No acute findings. Cortical volume loss. Mor Burton MD Chest X-Ray 04/10/17 1719 Signed Impressions: Service Date/Time: Monday, April 10, 2017 17:34 - CONCLUSION: 1. Minimal basilar atelectasis. Mor Burton MD Assessment and Plan Problem List: (1) Elevated troponin ICD Codes: R74.8 - Abnormal levels of other serum enzymes Status: Acute (2) Hypertensive urgency ICD Codes: I16.0 - Hypertensive urgency (3) CAD (coronary artery disease) ICD Codes: I25.10 - Atherosclerotic heart disease of [place] coronary artery without angina pectoris Plan: severe multi-vessel disease, CABG planned, continue medical mgt for now. Assessment and Plan Will be available as needed during his hospitalization Duong Joiner MD Apr 13, 2017 16:59
--- NOTE | 2017-04-13 17:16 | PD.CAR.PN ---
CVT Progress Note Subjective/Hospital Course: sts data discussed with pt RISK SCORES About the STS Risk Calculator Procedure: CAB Only Risk of Mortality: 0.901% Morbidity or Mortality: 9.033% Long Length of Stay: 3.198% Short Length of Stay: 52.313% Permanent Stroke: 0.836% Prolonged Ventilation: 5.289% DSW Infection: 0.269% Renal Failure: 1.654% Reoperation: 4.034% Objective: Vital Signs Date Time Temp Pulse Resp B/P (MAP) Pulse Ox O2 Delivery O2 Flow Rate FiO2 04/13/17 10:37 96 Room Air 04/13/17 07:50 57 18 214/95 (134) 97 04/13/17 04:00 98.1 58 16 175/76 (109) 97 04/13/17 00:00 98.6 56 16 152/78 (102) 94 04/13/17 00:00 56 04/12/17 20:15 59 04/12/17 20:00 98.6 59 16 156/79 (104) 95 04/12/17 18:00 70 Result Diagram: 04/11/17 0810 04/11/17 0810 (1) Elevated troponin (2) Hypertensive urgency (3) CAD (coronary artery disease) Plan: severe multi-vessel disease, CABG planned, continue medical mgt for now. Gypsy Champagne Apr 13, 2017 17:16
[2017-04-13] MEDS ORDERED: DEXTROSE 50% IN WATER 50 ML SYRINGE IV PUSH PRN (17:30)
[2017-04-13] MEDS ORDERED: PAPAVERINE INJ 60 MG, NITROGLYCERIN INJ 100 MCG, DILTIAZEM INJ 100 MG in SODIUM CHLORID... IRRIGATION SCH (17:30)
[2017-04-13] MEDS ORDERED: SODIUM CHLORIDE 0.9% FLUSH 10 ML FLUSH IV FLUSH PRN (17:30)
[2017-04-13] MEDS ORDERED: INSULIN REGULAR (IV INFUSION) 100 UNITS in SODIUM CHLORIDE 0.9% INJ 99 ML IV PRN (17:30)
[2017-04-13] MEDS ORDERED: ceFAZolin 2 GM PREMIX 50 ML IV SCH (17:30)
[2017-04-13] MEDS ORDERED: CEFAZOLIN INJ 500 MG in SODIUM CHLORIDE 0.9% IRR BTL 500 ML IRRIGATION SCH (17:30)
[2017-04-13] MEDS ORDERED: CHLORHEXIDINE GLUCONATE 4% SOLN 120 ML BTL TOPICAL SCH (17:30)
--- NOTE | 2017-04-13 18:40 | ECHRPT ---
Indication: CAD CONCLUSIONS Normal left ventricular size. Wall thickness is normal. No regional wall motion abnormalities are present. Moderate mitral annular calcification. There is trace tricuspid valve regurgitation. The estimated pulmonary arterial pressure is 39 mmHg. The pulmonary valve is not well visualized. The inferior vena cava was not well visualized. BP: 214 / 95 HR: 57 Rhythm: Sinus Technical Quality:Poor FINDINGS LEFT VENTRICLE The left ventricular systolic function is normal with an estimated ejection fraction in the range of 60-65%. Normal left ventricular size. Wall thickness is normal. No regional wall motion abnormalities are present. RIGHT VENTRICLE Normal right ventricular size and systolic function. LEFT ATRIUM The left atrial size is normal. RIGHT ATRIUM The right atrial size is normal. ATRIAL SEPTUM Normal atrial septal thickness without atrial level shunting by limited color doppler interrogation. AORTA The aortic root and proximal ascending aorta are normal in size on limited imaging. MITRAL VALVE Moderate mitral annular calcification. AORTIC VALVE Trileaflet aortic valve. No aortic valve stenosis or regurgitation. TRICUSPID VALVE Structurally normal tricuspid valve. There is trace tricuspid valve regurgitation. The estimated pulmonary arterial pressure is 39 mmHg. PULMONARY VALVE The pulmonary valve is not well visualized. VESSELS The inferior vena cava was not well visualized. PERICARDIUM No pericardial effusion. Chris De La Vega MD, FACC, FSCAI (Electronically Signed) Final Date:13 April 2017 18:39
[2017-04-13] MEDS: cloNIDine HCL 0.1 MG TAB PO PRN (19:14)
--- NOTE | 2017-04-13 19:54 | RADRPT ---
EXAM DATE/TIME: 04/13/2017 18:39 [place] COMPARISON: No previous studies available for comparison. EXTERNAL COMPARISON : [facility], US LEG, LEFT VENOUS DOPPLER, January 08, 2017 INDICATIONS : Preop cardiac surgery. MEDICAL HISTORY : Hypercholesterolemia. Gastroesophageal reflux disease. Arthritis. Coronary artery disease. Gout. SURGICAL HISTORY : Fusion, lumbar. Partial Left hip replacement. Right elbow tendon repair. Cardiac catheterization. ENCOUNTER: Initial ACUITY: 1 day PAIN SCORE: 0/10 LOCATION: Bilateral legs. TECHNIQUE: Venous ultrasound of the left and right leg was performed from the inguinal ligament to the proximal calf. Real-time, color Doppler and spectral tracing, compression and augmentation techniques were us ed. FINDINGS: RIGHT LEG: There is normal compressibility of the deep venous system from the inguinal region to the proximal ca lf. No echogenic clot is seen in the lumen of the common femoral, femoral, popliteal, and posterior tibial veins. There is a normal response of the venous system to proximal and distal augmentation an d respiration. LEFT LEG: There is normal compressibility of the deep venous system from the inguinal region to the proximal ca lf. No echogenic clot is seen in the lumen of the common femoral, femoral, popliteal, and posterior tibial veins. There is a normal response of the venous system to proximal and distal augmentation an d respiration. CONCLUSION: Normal examination. Trinity Holland MD on April 13, 2017 at 19:52 Board Certified Radiologist. This report was verified electronically.
--- NOTE | 2017-04-13 19:55 | RADRPT ---
EXAM DATE/TIME: 04/13/2017 19:13 [facility] COMPARISON: No previous studies available for comparison. EXTERNAL COMPARISON : [facility], US CAROTID ARTERIES, June 02, 2010 INDICATIONS : Preop cardiac surgery. MEDICAL HISTORY : Hypercholesterolemia. Gastroesophageal reflux disease. Arthritis. Coronary artery disease. Gout. SURGICAL HISTORY : Fusion, lumbar. Partial Left hip replacement. Right elbow tendon repair. Cardiac catheterization. ENCOUNTER: Initial ACUITY: 1 day PAIN SCORE: 0/10 LOCATION: Bilateral neck PEAK SYSTOLIC VELOCITIES (cm/sec): ICA/CCA RATIO: Right: 1.5 Left: 1.0 ICA: Right: 100 Left: 82 CCA: Right: 67 Left: 83 ECA: Right: 85 Left: 60 VERTEBRAL: Right: 43 antegrade Left: 79 antegrade Elevated flow velocities and ICA/CCA ratios have been found to correlate with increased degrees of vessel stenosis, calculated as percentage of diameter relative to a normal segment of distal ICA/CCA FINDINGS: Antegrade flow is seen in both vertebral arteries. There is mild atherosclerotic plaquing at the orig in of both ICAs without any significant stenosis. CONCLUSION: No evidence for hemodynamically significant stenosis. Trinity Holland MD on April 13, 2017 at 19:53 Board Certified Radiologist. This report was verified electronically.
--- NOTE | 2017-04-13 19:59 | RADRPT ---
EXAM DATE/TIME: 04/13/2017 18:49 [facility] COMPARISON: No previous studies available for comparison. EXTERNAL COMPARISON : [facility], US LEG, LEFT VENOUS DOPPLER, January 08, 2017 INDICATIONS : Preop cardiac surgery. MEDICAL HISTORY : Hypercholesterolemia. Gastroesophageal reflux disease. Arthritis. Coronary artery disease. Gout. SURGICAL HISTORY : Fusion, lumbar. Partial Left hip replacement. Right elbow tendon repair. Cardiac catheterization. ENCOUNTER: Initial ACUITY: 1 day PAIN SCORE: 0/10 LOCATION: Bilateral legs. GREATER SAPHENOUS VEIN THIGH: PROXIMAL: Right 5 mm Left 6 mm MID: Right 4 mm Left 5 mm DISTAL: Right 5 mm Left 5 mm CALF: PROXIMAL: Right 3 mm Left 3 mm MID: Right 2 mm Left 2 mm DISTAL: Right 2 mm Left 2 mm FINDINGS: The venous system of the lower extremities are patent by color Doppler imaging. Measurements of the leg veins (in mm) are listed above. CONCLUSION: Normal examination. Trinity Holland MD on April 13, 2017 at 19:58 Board Certified Radiologist. This report was verified electronically.
[2017-04-13] MEDS: amLODIPine BESYLATE 5 MG TAB PO SCH (20:51)
[2017-04-13] MEDS: SODIUM CHLORIDE 0.9% FLUSH 10 ML FLUSH IV FLUSH SCH ×2 (20:51)
--- NOTE | 2017-04-13 21:34 | MB ---
cc: PIETRO GALAVIZ DO DATE OF CONSULTATION 04/13/17 REASON FOR CONSULTATION Elevated troponin, abnormal stress test. Plan for cardiac catheterization. HISTORY OF PRESENT ILLNESS Orlando Arnold is a pleasant 77-year-old male who presented to [facility] due to dizziness with elevated blood pressure. He states that he started getting dizzy over the past few days and, when he checked his blood pressure, he noted that it was significantly elevated. He has also had some mild chest tightness, although he states that this is not chest pain overall. Lastly, he has been feeling somewhat wobbly when walking and he relates this to his dizziness. He underwent stress testing while at [facility] and was found to have a possible defect in the anterior wall. It was discussed with him cardiac catheterization versus medical management and he decided that he would like to undergo cardiac catheterization. He has been transferred to [facility] for this. In seeing him, he is currently stable without chest pain or shortness of breath. PAST MEDICAL HISTORY 1. Hypertension. 2. Gout 3. 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 Revision of bipolar shelby-arthroplasty left hip and total hip arthroplasty(August 2015) 2. Right elbow lateral epicondylitis debridement and repair (November 2012) 3. Right endoscopic maxillary sinusotomy (June 2011) 4. Back surgery (2001) ALLERGIES NO KNOWN DRUG ALLERGIES. MEDICATIONS Allopurinol 300 mg daily. FAMILY HISTORY Denies premature coronary artery disease or sudden cardiac within the family. SOCIAL HISTORY Denies tobacco, alcohol or drug abuse. REVIEW OF SYSTEMS 14-systems were reviewed including osteopathic. Pertinent positives and negatives above otherwise negative. PHYSICAL EXAMINATION VITAL SIGNS: Temperature 98.1, heart rate 58, blood pressure 175/76, respirations 16, pulse ox 97% on room air. GENERAL: The patient appears well in no acute distress, alert awake and oriented x3. HEENT: Extraocular muscles intact. Mucous membranes moist. NECK: Supple. No JVD at 45 degrees. No carotid bruits heard bilaterally. Carotid upstroke is brisk in nature. HEART: Regular rate and rhythm. Positive first and second heart sounds with no murmurs, gallops or rubs. LUNGS: Clear to auscultation bilaterally. No wheezes, rales or rhonchi. ABDOMEN: Soft, nontender, nondistended. no organomegaly noted. EXTREMITIES: No clubbing, cyanosis or edema. Femoral and distal pulses intact bilaterally. NEUROLOGIC: No focal deficits. SKIN: Warm, dry and intact. OSTEOPATHIC: No kyphoscoliosis, lordosis or paraspinal tender points. LABORATORY FINDINGS Hemoglobin 12.9, hematocrit 38.9, platelets 155. Potassium 4.0, BUN 13, creatinine 0.89, troponin 0.18. CARDIOLOGY STUDIES Electrocardiogram (April 10, 2017 at 20:15) sinus bradycardia with first degree AV block, right bundle branch block, left anterior fascicular block. IMPRESSION 1. Chest pain concerning for coronary insufficiency. 2. Mildly elevated troponin. 3. Abnormal stress test with possible anterior ischemia. 4. Accelerated hypertension. RECOMMENDATIONS 1. Because of Mr. Arnold's elevated troponin, chest pain and abnormal stress test, he will be recommended cardiac catheterization. 2. Risks, benefits and alternatives have been explained to him and he consents as such. 3. Further recommendations will be made after coronary visualization. Thank you for allowing me to see Orlanod Arnold. If there are any questions, please do not hesitate to call. Pietro Galaviz DO VGP/SA /8:09 PM /9:16 PM
[2017-04-13 22:11] LABS: BLOOD, URINE NEG (NEG); COMMENT (UR) CULT NOT INDICATED; CULTURE IF INDICATED CULT NOT INDICATED; GLUCOSE,URINE NEG (NEG); KETONE, URINE NEG (NEG); NITRITE,URINE NEG (NEG); PH, URINE 7.5 (5.0-8.5); URINE COLOR YELLOW (YELLW/STRAW)
[2017-04-14] VITALS (26 sets, daily range): BP systolic 113–158; BP diastolic 55–76; PULSE 54–70; RESP 16–19; TEMP 97.7–98.5; O2SAT 93–97
[2017-04-14] MEDS: SODIUM CHLOR 0.9% 1000 ML INJ 1,000 ML IV SCH ×3 (03:18→20:14)
[2017-04-14] MEDS ORDERED: METOPROLOL TARTRATE 25 MG TAB PO SCH (05:00)
[2017-04-14 07:18] LABS: ALT (GPT) 32 U/L (12-78); ANION GAP 8 MEQ/L (5-15); AST (GOT) 16 U/L (15-37); BICARBONATE 26.3 MEQ/L (21.0-32.0); BLOOD UREA NITROGEN 12 MG/DL (7-18); CHLORIDE 105 MEQ/L (98-107); GLOMERULAR FILTRATION RATE 83 ML/MIN (>89); POTASSIUM 3.6 MEQ/L (3.5-5.1); SODIUM (NA) 139 MEQ/L (136-145)
[2017-04-14 07:19] LABS: AUTOMATED NEUTROPHIL # 4.2 TH/MM3 (1.8-7.7); BASOPHIL % 0.7 % (0.0-2.0); EOSINOPHIL # 0.2 TH/MM3 (0-0.4); EOSINOPHIL % 2.9 % (0.0-4.0); HEMATOCRIT 40.6 % (39.0-51.0); HEMO FLAGS DIFF FINAL; LYMPHOCYTE # 1.3 TH/MM3 (1.0-4.8); MEAN CELL VOLUME 79.4 FL (80.0-100.0); MEAN CORPUSCULAR HEMOGLOBIN 27.1 PG (27.0-34.0); MEAN CORPUSCULAR HGB CONC 34.1 % (32.0-36.0); MONO % 8.8 % (0.0-8.0); NEUT % 66.6 % (16.0-70.0); PLATELET COUNT 136 TH/MM3 (150-450); RED BLOOD COUNT 5.12 MIL/MM3 (4.50-5.90); RED CELL DISTRIBUTION WIDTH 15.2 % (11.6-17.2); WHITE BLOOD COUNT 6.3 TH/MM3 (4.0-11.0)
[2017-04-14 07:27] LABS: ALKALINE PHOSPHATASE 123 U/L (45-117); FREE T4 0.94 NG/DL (0.76-1.46)
--- NOTE | 2017-04-14 08:06 | MB ---
cc: AKI GALAVIZ,JANNETH LUNSFORD DATE OF CONSULTATION: 04/13/2017 DATE OF : 1940 HISTORY: 77-year-old patient of Dr. Mitchel Duffy and Dr. Galaviz who started having some chest tightness and an episode of some lightheadedness on Wednesday. His wanted him to go to [facility] [employer] [facility], he checked his blood pressure, it was like 178/70 he went to lay down, got back up, did not feel much better, in the emergency department his blood pressure was [address] head which was unremarkable. He had troponins that showed 0.18 x three. EKG showed some sinus rhythm with first-degree AV block, otherwise unremarkable. He underwent myocardial perfusion scan which showed a small area of ischemia in the LA distribution, ejection fraction of 68%. He was transferred over to the [facility] and underwent cardiac cath by Dr. Galaivz showing any and ejection fraction 65% left main disease 10% proximal LAD 10% mid distal LAD 80%. The diagonal was 90%. The circ was 80%. The OM 70%, RCA 80%. He says he has seen Dr. Overton the custodial worker in the past 2012 he had a stress test which was okay at that time. We were consulted to evaluate for coronary artery bypass grafting. PAST MEDICAL HISTORY: The patient's past medical history significant for recent diagnosis hypertension. Gout. Left hip pain PAST SURGICAL HISTORY: Surgeries include revision bipolar hemiarthroplasty left hip to a total left hip in August 2015 Right elbow debridement and repair in November 2012, some maxillary sinusitis study sinusotomy surgery back surgery 2001 ALLERGIES NO KNOWN DRUG ALLERGIES HOME MEDICATIONS: Home meds include Allopurinol 300 daily. FAMILY HISTORY Mother from a stroke in her 60s. Father his 40s unknown causes. SOCIAL HISTORY The patient , two children. No tobacco or alcohol. Retired teaching manager for [employer], REVIEW OF SYSTEMS IN GENERAL: No night sweats, fever, heat and cold intolerance. SKIN: No psoriasis, itching or hives. HEAD, EYES, EARS, NOSE, AND THROAT: No blurred vision, hearing loss. RESPIRATORY: No cough, shortness of breath. CARDIOVASCULAR SYSTEM: As above in HPI. GASTROINTESTINAL: No diarrhea, vomiting. GENITOURINARY: No burning frequency or urgency. CENTRAL NERVOUS SYSTEM: No history of TIA, CVA, seizure disorder, ENDOCRINOLOGY: No diabetes and no hypothyroidism. PHYSICAL EXAMINATION: VITAL SIGNS: On exam blood pressure 140/70, was as high as once 200/90, heart rate 60, afebrile, 96% on room air. IN GENERAL: Patient is awake, alert in no acute distress head is normocephalic, atraumatic. HEAD, EYES, EARS, NOSE, AND THROAT: Pupils equal and reactive. Oral mucosa pink, moist. NECK: Supple. No JVD. HEART: Heart sounds S1-S2 regular rate and rhythm. No audible rubs, murmurs, gallops. LUNGS: Clear to auscultation. No wheezes, rales or rhonchi. ABDOMEN: Soft, nontender. No masses or organomegaly. EXTREMITIES: Reveal no cyanosis, clubbing or edema. LABORATORY FINDINGS Shows hemoglobin 12, hematocrit of 38, white cell count 5.3, platelet count of 155, sodium 140, potassium 4.0, BUN of 13, creatinine 0.89, troponin as above. Triglycerides 166, cholesterol 169, LDL 104, INR 1.0. RADIOLOGIC: CT brain unremarkable. Chest x-ray Unremarkable. 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 The cardiac films have been reviewed by Dr. Janneth Miguel procedures, alternatives and risks have been discussed. Will plan at this time for coronary artery bypass grafting x4 on WednesdayApril 16. The patient is agreeable to proceed. STS data will be discussed and documented electronic record. Dictated by CHENCHO Fajardo MD MICHELLE Graham/az /5:27 PM /8:04 AM
[2017-04-14] MEDS: METOPROLOL TARTRATE 50 MG TAB PO SCH ×2 (08:58→20:13)
[2017-04-14] MEDS: ASPIRIN EC 81 MG TABEC PO SCH (08:58)
[2017-04-14] MEDS: DOCUSATE SODIUM 50 MG/SENNA 8.6 MG TAB PO SCH ×2 (08:59→20:13)
[2017-04-14] MEDS: ALLOPURINOL 300 MG TAB PO SCH (08:59)
[2017-04-14] MEDS: amLODIPine BESYLATE 5 MG TAB PO SCH ×2 (08:59→20:13)
[2017-04-14] MEDS: PRAVASTATIN SOD 40 MG TAB PO SCH (08:59)
[2017-04-14] MEDS: SODIUM CHLORIDE 0.9% FLUSH 10 ML FLUSH IV FLUSH SCH ×4 (09:00→20:13)
[2017-04-14] MEDS ORDERED: amLODIPine BESYLATE 5 MG TAB PO SCH (09:00)
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
[2017-04-14 10:31] LABS: HEMOGLOBIN A1b 1.8 %; HEMOGLOBIN Ao 85.8 %; HEMOGLOBIN P3 3.5 %
--- NOTE | 2017-04-14 13:23 | PD.CAR.PN ---
CVT Progress Note Subjective/Hospital Course: 77/ male c/o of recent chest pain , elevated BP , abnormal stress test , underwent cardiac cath by Dr Menon , found to have multi vessel disease EF 65 %/ evaluated for surgery PMH: gout, chronic neck and shoulder pain , back surgery , left hip surgery FEV1 1.56 carotid US : ok US lower ext : ok for surgery on wednesday Objective: Vital Signs Date Time Temp Pulse Resp B/P (MAP) Pulse Ox O2 Delivery O2 Flow Rate FiO2 04/14/17 12:00 57 04/14/17 11:00 56 04/14/17 11:00 98.1 57 19 113/55 (74) 95 04/14/17 10:00 60 04/14/17 09:00 65 04/14/17 08:00 62 04/14/17 07:00 54 04/14/17 07:00 61 17 148/72 (97) 96 04/14/17 06:00 55 04/14/17 05:00 55 04/14/17 04:00 58 04/14/17 03:30 97.7 60 16 152/76 (101) 95 04/14/17 03:00 56 04/14/17 02:00 54 04/14/17 01:00 57 04/14/17 00:00 55 04/13/17 23:20 98.0 56 16 150/71 (97) 95 04/13/17 23:00 56 04/13/17 22:00 56 04/13/17 21:00 60 04/13/17 20:20 97.9 61 16 161/70 (100) 94 04/13/17 20:00 60 04/13/17 19:00 63 04/13/17 16:30 98.7 58 18 182/95 (124) 95 04/13/17 16:30 57 Labs: Laboratory Tests Test 04/14/17 04:50 04/14/17 04:52 White Blood Count 6.3 TH/MM3 (4.0-11.0) Red Blood Count 5.12 MIL/MM3 (4.50-5.90) Hemoglobin 13.9 GM/DL (13.0-17.0) Hematocrit 40.6 % (39.0-51.0) Mean Corpuscular Volume 79.4 FL (80.0-100.0) Mean Corpuscular Hemoglobin 27.1 PG (27.0-34.0) Mean Corpuscular Hemoglobin Concent 34.1 % (32.0-36.0) Red Cell Distribution Width 15.2 % (11.6-17.2) Platelet Count 136 TH/MM3 (150-450) Mean Platelet Volume 8.9 FL (7.0-11.0) Neutrophils (%) (Auto) 66.6 % (16.0-70.0) Lymphocytes (%) (Auto) 21.0 % (9.0-44.0) Monocytes (%) (Auto) 8.8 % (0.0-8.0) Eosinophils (%) (Auto) 2.9 % (0.0-4.0) Basophils (%) (Auto) 0.7 % (0.0-2.0) Neutrophils # (Auto) 4.2 TH/MM3 (1.8-7.7) Lymphocytes # (Auto) 1.3 TH/MM3 (1.0-4.8) Monocytes # (Auto) 0.6 TH/MM3 (0-0.9) Eosinophils # (Auto) 0.2 TH/MM3 (0-0.4) Basophils # (Auto) 0.0 TH/MM3 (0-0.2) CBC Comment DIFF FINAL Differential Comment Blood Urea Nitrogen 12 MG/DL (7-18) Creatinine 0.89 MG/DL (0.60-1.30) Random Glucose 97 MG/DL (74-106) Total Protein 7.2 GM/DL (6.4-8.2) Albumin 3.6 GM/DL (3.4-5.0) Calcium Level 9.1 MG/DL (8.5-10.1) Phosphorus Level 3.0 MG/DL (2.5-4.9) Magnesium Level 2.0 MG/DL (1.5-2.5) Alkaline Phosphatase 123 U/L (45-117) Aspartate Amino Transf (AST/SGOT) 16 U/L (15-37) Alanine Aminotransferase (ALT/SGPT) 32 U/L (12-78) Total Bilirubin 1.0 MG/DL (0.2-1.0) Sodium Level 139 MEQ/L (136-145) Potassium Level 3.6 MEQ/L (3.5-5.1) Chloride Level 105 MEQ/L (98-107) Carbon Dioxide Level 26.3 MEQ/L (21.0-32.0) Anion Gap 8 MEQ/L (5-15) Estimat Glomerular Filtration Rate 83 ML/MIN (>89) Free Thyroxine 0.94 NG/DL (0.76-1.46) Thyroid Stimulating Hormone 3rd Gen 2.570 uIU/ML (0.358-3.740) Result Diagram: 04/14/17 0450 04/14/17 0452 Telemetry: NSR (1) Elevated troponin (2) Hypertensive urgency (3) CAD (coronary artery disease) Plan: severe multi-vessel disease, CABG scheduled on Wednesday on ASA, statin , BB pain free last pm (4) Gout Plan: continue allopurinol Gypsy Champagne Apr 14, 2017 13:23
[2017-04-14] MEDS: cefTRIAXone INJ 1,000 MG in SODIUM CHLORIDE 0.9% INJ 100 ML IV SCH (15:33)
--- NOTE | 2017-04-14 22:52 | PD.CARD.PN ---
Subjective Subjective Remarks Patient was seen around 8pm No complaints, denies CP/SOB Objective Medications Current Medications Medications (Trade) Dose Ordered Sig/Popeye Route Start Time Stop Time Status Last Admin (Ecotrin Ec) 81 mg DAILY PO 04/11/17 09:00 04/14/17 08:58 (Pravachol) 40 mg DAILY PO 04/11/17 09:00 04/14/17 08:59 Sodium Chloride 1,000 ml @ 100 mls/hr Q10H IV 04/10/17 19:18 04/12/17 20:09 (NS Flush) 2 ml UNSCH PRN IV FLUSH 04/10/17 19:30 (NS Flush) 2 ml BID IV FLUSH 04/10/17 21:00 04/14/17 20:13 (Zofran Inj) 4 mg Q6H PRN IVP 04/10/17 19:30 (Tylenol) 650 mg Q6H PRN PO 04/10/17 19:30 (Percocet 5-325 Mg) 1 tab Q6H PRN PO 04/10/17 19:30 (Morphine Inj) 2 mg Q3H PRN IV PUSH 04/10/17 19:30 (Carrie-Colace) 1 tab BID PO 04/10/17 21:00 04/14/17 20:13 (Milk Of Magnesia Liq) 30 ml Q12H PRN PO 04/10/17 19:30 (Senokot) 17.2 mg Q12H PRN PO 04/10/17 19:30 (Dulcolax Supp) 10 mg DAILY PRN RECTAL 04/10/17 19:30 (Lactulose Liq) 30 ml DAILY PRN PO 04/10/17 19:30 (Zyloprim) 300 mg DAILY PO 04/11/17 09:00 04/14/17 08:59 (Pill Splitter) 1 ea UNSCH PRN OTHER 04/10/17 20:00 04/11/17 20:26 (Cozaar) 50 mg DAILY PO 04/12/17 09:00 Future Hold 04/13/17 09:00 (Lopressor) 50 mg Q12HR PO 04/12/17 21:00 04/14/17 20:13 Ceftriaxone Sodium 1000 mg/ Sodium Chloride 100 ml @ 200 mls/hr Q24H IV 04/13/17 15:00 04/14/17 15:33 (NS Flush) 2 ml BID IV FLUSH 04/13/17 21:00 (NS Flush) 2 ml UNSCH PRN IV FLUSH 04/13/17 17:30 Papaverine HCl 60 mg/Nitroglycerin 100 mcg/Diltiazem HCl 100 mg/Sodium Chloride 100 ml @ 0 mls/hr COMBINING MACHINE OPERATOR IRRIGATION 04/13/17 17:30 04/20/17 17:29 Cefazolin Sodium 500 mg/Sodium Chloride 505 ml @ 0 mls/hr COMBINING MACHINE OPERATOR IRRIGATION 04/13/17 17:30 04/20/17 17:29 Cefazolin Sodium/ Dextrose 50 ml @ 150 mls/hr COMBINING MACHINE OPERATOR IV 04/13/17 17:30 04/20/17 17:29 (Lopressor) 12.5 mg COMBINING MACHINE OPERATOR PO 04/14/17 05:00 04/20/17 04:59 (Hibiclens 4% Top Soln) 1 applic COMBINING MACHINE OPERATOR TOPICAL 04/13/17 17:30 04/20/17 17:29 Insulin Human Regular 100 units/ Sodium Chloride 100 ml @ 3 mls/hr TITRATE PRN IV 04/13/17 17:30 04/20/17 17:29 (D50w (Syr) Inj) 50 ml UNSCH PRN IV PUSH 04/13/17 17:30 (Norvasc) 5 mg BID PO 04/13/17 21:00 04/14/17 20:13 (Catapres) 0.1 mg Q4H PRN PO 04/13/17 18:30 04/13/17 19:14 Vital Signs / I&O Vital Signs Date Time Temp Pulse Resp B/P (MAP) Pulse Ox O2 Delivery O2 Flow Rate FiO2 04/14/17 20:00 98.4 69 131/64 (86) 93 04/14/17 19:00 65 04/14/17 18:00 68 04/14/17 17:01 63 04/14/17 16:05 62 04/14/17 15:00 98.1 65 18 127/61 (83) 95 04/14/17 15:00 62 04/14/17 14:01 59 04/14/17 13:00 62 04/14/17 12:00 57 04/14/17 11:00 56 04/14/17 11:00 98.1 57 19 113/55 (74) 95 04/14/17 10:00 60 04/14/17 09:00 65 04/14/17 08:00 62 04/14/17 07:00 54 04/14/17 07:00 61 17 148/72 (97) 96 04/14/17 06:00 55 04/14/17 05:00 55 04/14/17 04:00 58 04/14/17 03:30 97.7 60 16 152/76 (101) 95 04/14/17 03:00 56 04/14/17 02:00 54 04/14/17 01:00 57 04/14/17 00:00 55 04/13/17 23:20 98.0 56 16 150/71 (97) 95 04/13/17 23:00 56 I/O 04/13/17 04/13/17 04/13/17 04/14/17 04/14/17 04/14/17 07:00 15:00 23:00 07:00 15:00 23:00 Intake Total 1000 ml 440 ml 1160 ml Output Total 1200 ml 450 ml Balance -200 ml -10 ml 1160 ml Intake Oral 440 ml 960 ml IV Total 1000 ml 200 ml Output Urine Total 1200 ml 450 ml # Voids 4 4 # Bowel Movements 0 1 Physical Exam GENERAL: NAD, AAOx3 SKIN: Warm and dry. HEAD: Atraumatic. Normocephalic. EYES: Pupils equal and round. No scleral icterus. No injection or drainage. ENT: No nasal bleeding or discharge. Mucous membranes pink and moist. NECK: Trachea midline. No JVD. CARDIOVASCULAR: Regular rate and rhythm. RESPIRATORY: No accessory muscle use. Clear to auscultation. Breath sounds equal bilaterally. GASTROINTESTINAL: Abdomen soft, non-tender, nondistended. Hepatic and splenic margins not palpable. MUSCULOSKELETAL: Extremities without clubbing, cyanosis, or edema. No obvious deformities. NEUROLOGICAL: Awake and alert. No obvious cranial nerve deficits. Motor grossly within normal limits. Five out of 5 muscle strength in the arms and legs. Normal speech. PSYCHIATRIC: Appropriate mood and affect; insight and judgment normal. Laboratory Laboratory Tests Test 04/14/17 04:50 04/14/17 04:52 White Blood Count 6.3 TH/MM3 Red Blood Count 5.12 MIL/MM3 Hemoglobin 13.9 GM/DL Hematocrit 40.6 % Mean Corpuscular Volume 79.4 FL Mean Corpuscular Hemoglobin 27.1 PG Mean Corpuscular Hemoglobin Concent 34.1 % Red Cell Distribution Width 15.2 % Platelet Count 136 TH/MM3 Mean Platelet Volume 8.9 FL Neutrophils (%) (Auto) 66.6 % Lymphocytes (%) (Auto) 21.0 % Monocytes (%) (Auto) 8.8 % Eosinophils (%) (Auto) 2.9 % Basophils (%) (Auto) 0.7 % Neutrophils # (Auto) 4.2 TH/MM3 Lymphocytes # (Auto) 1.3 TH/MM3 Monocytes # (Auto) 0.6 TH/MM3 Eosinophils # (Auto) 0.2 TH/MM3 Basophils # (Auto) 0.0 TH/MM3 CBC Comment DIFF FINAL Differential Comment Blood Urea Nitrogen 12 MG/DL Creatinine 0.89 MG/DL Random Glucose 97 MG/DL Total Protein 7.2 GM/DL Albumin 3.6 GM/DL Calcium Level 9.1 MG/DL Phosphorus Level 3.0 MG/DL Magnesium Level 2.0 MG/DL Alkaline Phosphatase 123 U/L Aspartate Amino Transf (AST/SGOT) 16 U/L Alanine Aminotransferase (ALT/SGPT) 32 U/L Total Bilirubin 1.0 MG/DL Sodium Level 139 MEQ/L Potassium Level 3.6 MEQ/L Chloride Level 105 MEQ/L Carbon Dioxide Level 26.3 MEQ/L Anion Gap 8 MEQ/L Estimat Glomerular Filtration Rate 83 ML/MIN Hemoglobin A1c 5.6 % Free Thyroxine 0.94 NG/DL Thyroid Stimulating Hormone 3rd Gen 2.570 uIU/ML Assessment and Plan Problem List: (1) Elevated troponin ICD Codes: R74.8 - Abnormal levels of other serum enzymes Status: Acute (2) Hypertensive urgency ICD Codes: I16.0 - Hypertensive urgency (3) CAD (coronary artery disease) ICD Codes: I25.10 - Atherosclerotic heart disease of [place] coronary artery without angina pectoris (4) Gout ICD Codes: M10.9 - Gout, unspecified Assessment and Plan 1) MVCAD Plan CABG on Wednesday 2) No chest pain/SOB at this time 3) Blood pressure better controlled 4) EF 60-65% Pietro Menon DO Apr 14, 2017 22:52
[2017-04-15] VITALS (28 sets, daily range): BP systolic 13–175; BP diastolic 56–79; PULSE 55–72; RESP 16; TEMP 97.6–97.9; O2SAT 95–97
[2017-04-15 05:47] LABS: AUTOMATED NEUTROPHIL # 3.8 TH/MM3 (1.8-7.7); BASOPHIL % 0.7 % (0.0-2.0); EOSINOPHIL # 0.1 TH/MM3 (0-0.4); EOSINOPHIL % 2.3 % (0.0-4.0); HEMATOCRIT 42.2 % (39.0-51.0); HEMO FLAGS DIFF FINAL; LYMPH % 19.5 % (9.0-44.0); LYMPHOCYTE # 1.1 TH/MM3 (1.0-4.8); MEAN CELL VOLUME 79.4 FL (80.0-100.0); MEAN CORPUSCULAR HEMOGLOBIN 26.6 PG (27.0-34.0); MEAN CORPUSCULAR HGB CONC 33.5 % (32.0-36.0); MONO % 7.8 % (0.0-8.0); NEUT % 69.7 % (16.0-70.0); PLATELET COUNT 132 TH/MM3 (150-450); RED BLOOD COUNT 5.31 MIL/MM3 (4.50-5.90); RED CELL DISTRIBUTION WIDTH 15.2 % (11.6-17.2); WHITE BLOOD COUNT 5.4 TH/MM3 (4.0-11.0)
[2017-04-15 06:21] LABS: ALT (GPT) 31 U/L (12-78); ANION GAP 9 MEQ/L (5-15); AST (GOT) 19 U/L (15-37); BICARBONATE 24.8 MEQ/L (21.0-32.0); BLOOD UREA NITROGEN 14 MG/DL (7-18); CHLORIDE 102 MEQ/L (98-107); MAGNESIUM 2.1 MG/DL (1.5-2.5); POTASSIUM 3.5 MEQ/L (3.5-5.1); SODIUM (NA) 136 MEQ/L (136-145)
[2017-04-15 06:23] LABS: GLOMERULAR FILTRATION RATE 73 ML/MIN (>89)
[2017-04-15 06:25] LABS: ALKALINE PHOSPHATASE 113 U/L (45-117); TOTAL BILIRUBIN ADULT 0.9 MG/DL (0.2-1.0)
[2017-04-15] MEDS: ASPIRIN EC 81 MG TABEC PO SCH (09:07)
[2017-04-15] MEDS: METOPROLOL TARTRATE 50 MG TAB PO SCH ×2 (09:07→20:18)
[2017-04-15] MEDS: PRAVASTATIN SOD 40 MG TAB PO SCH (09:07)
[2017-04-15] MEDS: DOCUSATE SODIUM 50 MG/SENNA 8.6 MG TAB PO SCH ×2 (09:07→20:18)
[2017-04-15] MEDS: SODIUM CHLORIDE 0.9% FLUSH 10 ML FLUSH IV FLUSH SCH ×4 (09:07→20:18)
[2017-04-15] MEDS: amLODIPine BESYLATE 5 MG TAB PO SCH ×2 (09:07→20:18)
[2017-04-15] MEDS: ALLOPURINOL 300 MG TAB PO SCH (09:07)
--- NOTE | 2017-04-15 09:38 | RSPPFT ---
DATE OF PROCEDURE: 04/13/17 COMMENTS: Spirometry shows FVC of 2.0 at 46% of predicted, FEV1 of 1.5 at 46%, FEV1/FVC ratio is decreased. Flow is decreased at FEF 25, FEF 50, FEF 75 and FEF 25-75. Flow volume loop indicates a restrictive pattern. IMPRESSION: 1. Findings are suggestive of mildly severe restrictive disease. 2. Post-bronchodilator study was not performed. 3. Patient will need a complete pulmonary function study for further evaluation.
[2017-04-15] MEDS ORDERED: POTASSIUM CHLORIDE 10 MEQ CONTROLLED RELEASE TAB PO ONE (10:00)
--- NOTE | 2017-04-15 10:02 | HHI.PR ---
Subjective Remarks Follow-up coronary artery disease. Patient has no chest pain or dyspnea today. Scheduled for CABG tomorrow morning. States that he is not sleeping well due to anticipation of the procedure. Objective Vitals Vital Signs Date Time Temp Pulse Resp B/P (MAP) Pulse Ox O2 Delivery O2 Flow Rate FiO2 04/15/17 09:16 63 04/15/17 08:14 97.7 61 16 150/70 (96) 96 04/15/17 08:00 61 04/15/17 07:06 57 04/15/17 06:05 59 04/15/17 05:35 62 04/15/17 04:09 66 04/15/17 03:19 59 04/15/17 03:16 97.9 72 106/56 (73) 95 04/15/17 02:21 59 04/15/17 01:16 59 04/15/17 00:00 58 04/14/17 23:20 98.5 62 158/73 (101) 97 04/14/17 23:17 58 04/14/17 22:00 60 04/14/17 21:00 68 04/14/17 20:00 70 04/14/17 20:00 98.4 69 131/64 (86) 93 04/14/17 19:00 65 04/14/17 18:00 68 04/14/17 17:01 63 04/14/17 16:05 62 04/14/17 15:00 98.1 65 18 127/61 (83) 95 04/14/17 15:00 62 04/14/17 14:01 59 04/14/17 13:00 62 04/14/17 12:00 57 04/14/17 11:00 56 04/14/17 11:00 98.1 57 19 113/55 (74) 95 04/14/17 10:00 60 I/O 04/14/17 04/14/17 04/14/17 04/15/17 04/15/17 04/15/17 07:00 15:00 23:00 07:00 15:00 23:00 Intake Total 440 ml 1160 ml 240 ml Output Total 450 ml Balance -10 ml 1160 ml 240 ml Intake Oral 440 ml 960 ml 240 ml IV Total 200 ml Output Urine Total 450 ml # Voids 4 3 # Bowel Movements 0 1 Result Diagram: 04/15/17 0445 04/15/17 0445 Imaging Last Impressions Lower Extremity Ultrasound 04/13/17 0000 Signed Impressions: Service Date/Time: Thursday, April 13, 2017 18:49 - CONCLUSION: Normal examination. Trinity Holland MD Carotid Artery Ultrasound 04/13/17 0000 Signed Impressions: Service Date/Time: Thursday, April 13, 2017 19:13 - CONCLUSION: No evidence for hemodynamically significant stenosis. Trinity Holland MD Myocardial Perfusion Scan Nuc Med 04/12/17 0000 Signed Impressions: Service Date/Time: Wednesday, April 12, 2017 11:23 - CONCLUSION: 1. Scintigraphic findings suggest a very small area of ischemia in the mid LAD distribution. 2. Excellent wall motion throughout with an estimated ejection fraction of 68%%. RISK CATEGORY: Intermediate (1-3%% Annual Mortality Rate) Fortino Huerta MD Head CT 04/10/171718 Signed Impressions: Service Date/Time: Monday, April 10, 2017 17:37 - CONCLUSION: 1. No acute findings. Cortical volume loss. Mor Burton MD Chest X-Ray 04/10/171718 Signed Impressions: Service Date/Time: Monday, April 10, 2017 17:34 - CONCLUSION: 1. Minimal basilar atelectasis. Mor Burton MD Objective Remarks General: Elderly male in no acute distress. Heart: Regular rate and rhythm. No murmur. Lungs: Clear to auscultation bilaterally. No wheezes, rales, or rhonchi. Breathing is nonlabored. Abdomen: Soft, nontender, nondistended. Extremities: No lower extremity edema. Psych: Alert and oriented. Procedures 04/13/17 cardiac catheterization Urinary Catheter: No Vascular Central Line Catheter: No A/P Problem List: (1) Dizziness ICD Code: R42 - Dizziness and giddiness (2) Chest pain ICD Code: R07.9 - Chest pain, unspecified Status: Acute (3) Elevated troponin ICD Code: R74.8 - Abnormal levels of other serum enzymes Status: Acute (4) Hypertensive urgency ICD Code: I16.0 - Hypertensive urgency (5) Cellulitis of right anterior lower leg ICD Code: L03.115 - Cellulitis of right lower limb (6) Abnormal nuclear cardiac imaging test ICD Code: R93.1 - Abnormal findings on diagnostic imaging of heart and coronary circulation Assessment and Plan 1. Coronary artery disease: Status post cardiac catheterization. Appreciate cardiology recommendations. Discussed with Dr. Menon. Patient has multivessel coronary artery disease. Cardio vascular surgery planning CABG tomorrow. Continue statin, beta juanjo, ARB. 2. Hypertension: Continue metoprolol, Cozaar, Norvasc. Clonidine as needed. 3. Dyslipidemia: Continue statin. 4. History of gout: Continue allopurinol. 5. Right lower extremity cellulitis: Continue antibiotics. 6. DVT prophylaxis: SCDs. Problem Qualifiers (1) Chest pain: Qualified Codes: R07.9 - Chest pain, unspecified Marco Barnes MD Apr 15, 2017 10:02
[2017-04-15] MEDS: SODIUM CHLOR 0.9% 1000 ML INJ 1,000 ML IV SCH ×2 (10:26→18:07)
--- NOTE | 2017-04-15 13:27 | PD.CARD.PN ---
Subjective Subjective Remarks No complaints, denies CP/SOB Objective Medications Current Medications Medications (Trade) Dose Ordered Sig/Popeye Route Start Time Stop Time Status Last Admin (Ecotrin Ec) 81 mg DAILY PO 04/11/17 09:00 04/15/17 09:07 (Pravachol) 40 mg DAILY PO 04/11/17 09:00 04/15/17 09:07 Sodium Chloride 1,000 ml @ 100 mls/hr Q10H IV 04/10/17 19:18 04/12/17 20:09 (NS Flush) 2 ml UNSCH PRN IV FLUSH 04/10/17 19:30 (NS Flush) 2 ml BID IV FLUSH 04/10/17 21:00 04/15/17 09:07 (Zofran Inj) 4 mg Q6H PRN IVP 04/10/17 19:30 (Tylenol) 650 mg Q6H PRN PO 04/10/17 19:30 (Percocet 5-325 Mg) 1 tab Q6H PRN PO 04/10/17 19:30 (Morphine Inj) 2 mg Q3H PRN IV PUSH 04/10/17 19:30 (Carrie-Colace) 1 tab BID PO 04/10/17 21:00 04/15/17 09:07 (Milk Of Magnesia Liq) 30 ml Q12H PRN PO 04/10/17 19:30 (Senokot) 17.2 mg Q12H PRN PO 04/10/17 19:30 (Dulcolax Supp) 10 mg DAILY PRN RECTAL 04/10/17 19:30 (Lactulose Liq) 30 ml DAILY PRN PO 04/10/17 19:30 (Zyloprim) 300 mg DAILY PO 04/11/17 09:00 04/15/17 09:07 (Pill Splitter) 1 ea UNSCH PRN OTHER 04/10/17 20:00 04/11/17 20:26 (Cozaar) 50 mg DAILY PO 04/12/17 09:00 Future Hold 04/13/17 09:00 (Lopressor) 50 mg Q12HR PO 04/12/17 21:00 04/15/17 09:07 Ceftriaxone Sodium 1000 mg/ Sodium Chloride 100 ml @ 200 mls/hr Q24H IV 04/13/17 15:00 04/14/17 15:33 (NS Flush) 2 ml BID IV FLUSH 04/13/17 21:00 (NS Flush) 2 ml UNSCH PRN IV FLUSH 04/13/17 17:30 Papaverine HCl 60 mg/Nitroglycerin 100 mcg/Diltiazem HCl 100 mg/Sodium Chloride 100 ml @ 0 mls/hr RELATIONSHIP COUNSELOR IRRIGATION 04/13/17 17:30 04/20/17 17:29 Cefazolin Sodium 500 mg/Sodium Chloride 505 ml @ 0 mls/hr RELATIONSHIP COUNSELOR IRRIGATION 04/13/17 17:30 04/20/17 17:29 Cefazolin Sodium/ Dextrose 50 ml @ 150 mls/hr RELATIONSHIP COUNSELOR IV 04/13/17 17:30 04/20/17 17:29 (Lopressor) 12.5 mg RELATIONSHIP COUNSELOR PO 04/14/17 05:00 04/20/17 04:59 (Hibiclens 4% Top Soln) 1 applic RELATIONSHIP COUNSELOR TOPICAL 04/13/17 17:30 04/20/17 17:29 Insulin Human Regular 100 units/ Sodium Chloride 100 ml @ 3 mls/hr TITRATE PRN IV 04/13/17 17:30 04/20/17 17:29 (D50w (Syr) Inj) 50 ml UNSCH PRN IV PUSH 04/13/17 17:30 (Norvasc) 5 mg BID PO 04/13/17 21:00 04/15/17 09:07 (Catapres) 0.1 mg Q4H PRN PO 04/13/17 18:30 04/13/17 19:14 Vital Signs / I&O Vital Signs Date Time Temp Pulse Resp B/P (MAP) Pulse Ox O2 Delivery O2 Flow Rate FiO2 04/15/17 13:09 59 04/15/17 12:00 55 04/15/17 11:00 97.7 58 16 128/63 (84) 95 04/15/17 11:00 58 04/15/17 10:09 57 04/15/17 09:16 63 04/15/17 08:14 97.7 61 16 150/70 (96) 96 04/15/17 08:00 61 04/15/17 07:06 57 04/15/17 06:05 59 04/15/17 05:35 62 04/15/17 04:09 66 04/15/17 03:19 59 04/15/17 03:16 97.9 72 106/56 (73) 95 04/15/17 02:21 59 04/15/17 01:16 59 04/15/17 00:00 58 04/14/17 23:20 98.5 62 158/73 (101) 97 04/14/17 23:17 58 04/14/17 22:00 60 04/14/17 21:00 68 04/14/17 20:00 70 04/14/17 20:00 98.4 69 131/64 (86) 93 04/14/17 19:00 65 04/14/17 18:00 68 04/14/17 17:01 63 04/14/17 16:05 62 04/14/17 15:00 98.1 65 18 127/61 (83) 95 04/14/17 15:00 62 04/14/17 14:01 59 I/O 04/14/17 04/14/17 04/14/17 04/15/17 04/15/17 04/15/17 07:00 15:00 23:00 07:00 15:00 23:00 Intake Total 440 ml 1160 ml 240 ml Output Total 450 ml Balance -10 ml 1160 ml 240 ml Intake Oral 440 ml 960 ml 240 ml IV Total 200 ml Output Urine Total 450 ml # Voids 4 3 # Bowel Movements 0 1 Physical Exam GENERAL: NAD, AAOx3 SKIN: Warm and dry. HEAD: Atraumatic. Normocephalic. EYES: Pupils equal and round. No scleral icterus. No injection or drainage. ENT: No nasal bleeding or discharge. Mucous membranes pink and moist. NECK: Trachea midline. No JVD. CARDIOVASCULAR: Regular rate and rhythm. RESPIRATORY: No accessory muscle use. Clear to auscultation. Breath sounds equal bilaterally. GASTROINTESTINAL: Abdomen soft, non-tender, nondistended. Hepatic and splenic margins not palpable. MUSCULOSKELETAL: Extremities without clubbing, cyanosis, or edema. No obvious deformities. NEUROLOGICAL: Awake and alert. No obvious cranial nerve deficits. Motor grossly within normal limits. Five out of 5 muscle strength in the arms and legs. Normal speech. PSYCHIATRIC: Appropriate mood and affect; insight and judgment normal. Laboratory Laboratory Tests Test 04/15/17 04:45 White Blood Count 5.4 TH/MM3 Red Blood Count 5.31 MIL/MM3 Hemoglobin 14.1 GM/DL Hematocrit 42.2 % Mean Corpuscular Volume 79.4 FL Mean Corpuscular Hemoglobin 26.6 PG Mean Corpuscular Hemoglobin Concent 33.5 % Red Cell Distribution Width 15.2 % Platelet Count 132 TH/MM3 Mean Platelet Volume 8.7 FL Neutrophils (%) (Auto) 69.7 % Lymphocytes (%) (Auto) 19.5 % Monocytes (%) (Auto) 7.8 % Eosinophils (%) (Auto) 2.3 % Basophils (%) (Auto) 0.7 % Neutrophils # (Auto) 3.8 TH/MM3 Lymphocytes # (Auto) 1.1 TH/MM3 Monocytes # (Auto) 0.4 TH/MM3 Eosinophils # (Auto) 0.1 TH/MM3 Basophils # (Auto) 0.0 TH/MM3 CBC Comment DIFF FINAL Differential Comment Blood Urea Nitrogen 14 MG/DL Creatinine 0.99 MG/DL Random Glucose 122 MG/DL Total Protein 7.2 GM/DL Albumin 3.6 GM/DL Calcium Level 9.4 MG/DL Phosphorus Level 3.1 MG/DL Magnesium Level 2.1 MG/DL Alkaline Phosphatase 113 U/L Aspartate Amino Transf (AST/SGOT) 19 U/L Alanine Aminotransferase (ALT/SGPT) 31 U/L Total Bilirubin 0.9 MG/DL Sodium Level 136 MEQ/L Potassium Level 3.5 MEQ/L Chloride Level 102 MEQ/L Carbon Dioxide Level 24.8 MEQ/L Anion Gap 9 MEQ/L Estimat Glomerular Filtration Rate 73 ML/MIN Assessment and Plan Problem List: (1) Elevated troponin ICD Codes: R74.8 - Abnormal levels of other serum enzymes Status: Acute (2) Hypertensive urgency ICD Codes: I16.0 - Hypertensive urgency (3) CAD (coronary artery disease) ICD Codes: I25.10 - Atherosclerotic heart disease of [place] coronary artery without angina pectoris (4) Gout ICD Codes: M10.9 - Gout, unspecified Assessment and Plan 1) MVCAD Plan CABG tomorrow 2) No chest pain/SOB at this time 3) Blood pressure better controlled 4) EF 60-65% Pietro Menon DO Apr 15, 2017 13:27
[2017-04-15] MEDS: cefTRIAXone INJ 1,000 MG in SODIUM CHLORIDE 0.9% INJ 100 ML IV SCH (15:06)
[2017-04-15 15:43] LABS: HEMOGLOBIN A1a 0.9 %; HEMOGLOBIN A1b 1.9 %; HEMOGLOBIN Ao 85.6 %; HEMOGLOBIN LA1C 2.1 %; HEMOGLOBIN P3 3.6 %
--- NOTE | 2017-04-15 17:56 | PD.CAR.PN ---
CVT Progress Note Subjective/Hospital Course: 77/ male c/o of recent chest pain , elevated BP , abnormal stress test , underwent cardiac cath by Dr Menon , found to have multi vessel disease EF 65 %/ evaluated for surgery PMH: gout, chronic neck and shoulder pain , back surgery , left hip surgery FEV1 1.56 carotid US : ok US lower ext : ok for surgery on sunday 04/15 pain free, for OR in am Objective: GENERAL: SKIN: Warm and dry. HEAD: Normocephalic. EYES: No scleral icterus. No injection or drainage. NECK: Supple, trachea midline. No JVD or lymphadenopathy. CARDIOVASCULAR: Regular rate and rhythm without murmurs, gallops, or rubs. RESPIRATORY: Breath sounds equal bilaterally. No accessory muscle use. GASTROINTESTINAL: Abdomen soft, non-tender, nondistended. MUSCULOSKELETAL: No cyanosis, or edema. BACK: Nontender without obvious deformity. No CVA tenderness. Vital Signs Date Time Temp Pulse Resp B/P (MAP) Pulse Ox O2 Delivery O2 Flow Rate FiO2 04/15/17 16:01 57 04/15/17 15:00 97.6 58 16 13/67 (49) 96 04/15/17 15:00 57 04/15/17 14:00 55 04/15/17 13:09 59 04/15/17 12:00 55 04/15/17 11:00 97.7 58 16 128/63 (84) 95 04/15/17 11:00 58 04/15/17 10:09 57 04/15/17 09:16 63 04/15/17 08:14 97.7 61 16 150/70 (96) 96 04/15/17 08:00 61 04/15/17 07:06 57 04/15/17 06:05 59 04/15/17 05:35 62 04/15/17 04:09 66 04/15/17 03:19 59 04/15/17 03:16 97.9 72 106/56 (73) 95 04/15/17 02:21 59 04/15/17 01:16 59 04/15/17 00:00 58 04/14/17 23:20 98.5 62 158/73 (101) 97 04/14/17 23:17 58 04/14/17 22:00 60 04/14/17 21:00 68 04/14/17 20:00 70 04/14/17 20:00 98.4 69 131/64 (86) 93 04/14/17 19:00 65 04/14/17 18:00 68 Result Diagram: 04/15/17 0445 04/15/17 0445 (1) Elevated troponin (2) Hypertensive urgency (3) CAD (coronary artery disease) Plan: severe multi-vessel disease, CABG scheduled on Wednesday on ASA, statin , BB pain free last pm OR in am (4) Gout Plan: continue allopurinol Gypsy Champagne Apr 15, 2017 17:56
[2017-04-15] MEDS ORDERED: TEMAZEPAM 7.5 MG CAP PO ONE (21:30)
[2017-04-15] MEDS: cloNIDine HCL 0.1 MG TAB PO PRN (23:23)
[2017-04-16] VITALS (21 sets, daily range): BP systolic 105–141; BP diastolic 31–75; PULSE 54–94; RESP 10–20; TEMP 97.8–98.6; O2SAT 92–99
[2017-04-16] MEDS: SODIUM CHLOR 0.9% 1000 ML INJ 1,000 ML IV SCH ×2 (02:18→15:18)
[2017-04-16] MEDS: METOPROLOL TARTRATE 50 MG TAB PO SCH (05:26)
[2017-04-16] MEDS ORDERED: HEPARIN SODIUM - SQ 10,000 UNITS/ML VIAL ONE (06:20)
[2017-04-16] MEDS ORDERED: methylPREDNISolone SOD SUCC 125 MG/2 ML VIAL ONE (06:20)
[2017-04-16] MEDS ORDERED: VANCOMYCIN HCL 1000 MG VIAL ONE (06:21)
[2017-04-16] MEDS ORDERED: ceFAZolin 2 GM PREMIX 50 ML ONE (06:21)
[2017-04-16] MEDS ORDERED: CARDIOPLEGIC IRR 2,000 ML ONE (06:41)
[2017-04-16] MEDS ORDERED: ALBUMIN 25% INJ 100 ML IV ONE (06:41)
[2017-04-16] MEDS ORDERED: POTASSIUM CHLORIDE 40 MEQ/20 ML VIAL ONE (06:43)
[2017-04-16] MEDS ORDERED: POTASSIUM CHLORIDE 20 MEQ/10 ML VIAL ONE (06:43)
[2017-04-16] MEDS ORDERED: SODIUM BICARBONATE 8.4% INJ 100 ML ONE (06:44)
[2017-04-16] MEDS ORDERED: MANNITOL INJ 100 ML ONE (06:44)
[2017-04-16] MEDS ORDERED: HEPARIN SODIUM - IV 10,000 UNITS/10 ML VIAL ONE (06:45)
[2017-04-16] MEDS: PRAVASTATIN SOD 40 MG TAB PO SCH (09:00)
[2017-04-16] MEDS: ASPIRIN EC 81 MG TABEC PO SCH (09:00)
[2017-04-16] MEDS: amLODIPine BESYLATE 5 MG TAB PO SCH (09:00)
[2017-04-16] MEDS: DOCUSATE SODIUM 50 MG/SENNA 8.6 MG TAB PO SCH ×2 (09:00→21:00)
[2017-04-16] MEDS: ALLOPURINOL 300 MG TAB PO SCH (09:00)
[2017-04-16] MEDS: SODIUM CHLORIDE 0.9% FLUSH 10 ML FLUSH IV FLUSH SCH ×3 (09:00→20:58)
[2017-04-16] MEDS ORDERED: DEXMEDETOMIDINE HCL 200 MCG/2 ML VIAL ONE (09:12)
[2017-04-16] MEDS ORDERED: INSULIN REGULAR (IV INFUSION) 100 UNITS in SODIUM CHLORIDE 0.9% INJ 99 ML IV PRN (11:00)
[2017-04-16] MEDS ORDERED: CLEVIDIPINE INJ 50 ML IV PRN (11:00)
[2017-04-16] MEDS ORDERED: MAGNESIUM SULFATE INJ 2 GM in SODIUM CHLORIDE 0.9% INJ 100 ML IV PRN ×4 (11:00)
[2017-04-16] MEDS ORDERED: SODIUM BICARBONATE 8.4% SOLN 50 MEQ/50 ML VIAL IV PUSH PRN ×2 (11:00)
[2017-04-16] MEDS ORDERED: ACETAMINOPHEN 650 MG SUPP RECTAL PRN (11:00)
[2017-04-16] MEDS ORDERED: ACETAMINOPHEN 325 MG TAB PO PRN (11:00)
[2017-04-16] MEDS ORDERED: POTASSIUM CHLORIDE 20 MEQ CONTROLLED RELEASE TAB PO PRN ×2 (11:00)
[2017-04-16] MEDS ORDERED: hydrALAZINE HCL 20 MG/ML VIAL IV PUSH PRN (11:00)
[2017-04-16] MEDS ORDERED: DEXMEDETOMIDINE INJ 200 MCG in SODIUM CHLORIDE 0.9% INJ 50 ML IV PRN (11:00)
[2017-04-16] MEDS ORDERED: ONDANSETRON HCL 4 MG/2 ML VIAL IV PUSH PRN (11:00)
[2017-04-16] MEDS ORDERED: DEXTROSE 50% IN WATER 50 ML VIAL(D50) IV PUSH PRN (11:00)
[2017-04-16] MEDS ORDERED: CALCIUM CHLORIDE INJ 1 GM in SODIUM CHLORIDE 0.9% INJ 100 ML IV PRN (11:00)
[2017-04-16] MEDS ORDERED: METOPROLOL TARTRATE 5 MG/5 ML VIAL IV PUSH PRN (11:00)
[2017-04-16] MEDS ORDERED: SODIUM CHLORIDE 0.9% FLUSH 10 ML FLUSH IV FLUSH PRN (11:00)
[2017-04-16] MEDS ORDERED: Post-op Orders (for Pharmacy) MISC OTHER ONE (11:00)
[2017-04-16] MEDS ORDERED: CALCIUM CHLORIDE 10% 1 GRAM/10 ML VIAL IV PUSH PRN (11:00)
[2017-04-16] MEDS ORDERED: POTASSIUM CHLOR 20 MEQ PREMIX 100 ML IV PRN ×3 (11:00)
[2017-04-16] MEDS ORDERED: ceFAZolin INJ 1,000 MG VIAL ONE (11:01)
--- NOTE | 2017-04-16 11:09 | PD.OP ---
cc: Janneth Miguel MD; MenonPietro Goncalves Operative Report Date of Surgery: Apr 16, 2017 Preoperative Diagnosis: (1) NSTEMI (non-ST elevated myocardial infarction) (2) CAD (coronary artery disease) Postoperative Diagnosis: same Procedure: CABG x 4 MEDINA to LAD - good SVG to OM - good SVG to D1 - good SVG to PDA - fair EVH Anesthesia: Dr. Gray Surgeon: Janneth Miguel Mechanical Applications Engineer(s): JOVANA Cook Operation and Findings: The risks, benefits, complications, treatment options, and expected outcomes were discussed with the patient. The possibilities of reaction to medication, pulmonary aspiration, perforation of viscus, bleeding, recurrent infection, the need for additional procedures, failure to diagnose a condition, and creating a complication requiring transfusion or operation were discussed with the patient. The patient concurred with the proposed plan, giving informed consent. The site of surgery properly noted/marked. The patient was taken to Operating Room, identified as Orlando Arnold and the procedure verified as CABG, EVH. A Time Out was held and the above information confirmed. Standard monitoring lines and Cleary catheter were placed. General anesthesia was induced. The patient was prepped and draped in a sterile fashion. A median sternotomy was performed and electrocautery was used to obtain hemostasis. The left internal mammary artery was procured as a pedicle from the 7th rib to the 1st rib in the usual manner. Simultaneously left greater saphenous vein was procured from the left leg using a minimally invasive endoscopic technique. The vein was prepared for anastomosis and the leg wound was irrigated and closed in 2 layers. The pericardium was opened and a pericardial sling was created using interrupted 0 silk sutures. The patient was heparinized for cardiopulmonary bypass and the distal mammary pedicle was instrumented for anastomosis. The heart was instrumented for cardiopulmonary bypass in the usual manner. Antegrade blood cardioplegia was employed. The patient was placed on cardiopulmonary bypass. An aortic cross-clamp was applied and the heart was arrested using cold blood cardioplegia. Antegrade cardioplegia was administered after he each anastomosis. After adequate arrest, the distal right coronary circulation was investigated and the distal PDA was opened with a [place] blade and found to be a 1 millimeter fair target. Saphenous vein was approximated to the PDA artery using a running 7 0 Prolene suture. The graft was measured for length and orientation and the proximal anastomosis was constructed to the ascending aorta using a running 5 0 Prolene suture after creating an aortotomy with a 5 millimeter punch. The 1st circumflex marginal artery was then opened with a [place] blade and found to be a 1.5 millimeter good target. Saphenous vein was approximated to the OM1 artery using a running 7 0 Prolene suture. The graft was measured for length and orientation and the proximal anastomosis was constructed to the ascending aorta using a running 5 0 Prolene suture after creating an aortotomy with a 5 millimeter punch. The 1st diagonal artery was then opened with a [place] blade and found to be a 1.5 millimeter good target. Saphenous vein was approximated to the D1 artery using a running 7 0 Prolene suture. The graft was measured for length and orientation and was suspended from the pericardium. The distal LAD was opened with a [place] blade and found to be a 1.5 millimeter good target. The left internal mammary artery was approximated to the LAD using a running 7 0 Prolene suture. The pedicle was attached to the epicardium using interrupted 5 0 silk suture. The patient was systemically rewarmed and received a hotshot dose of warm blood cardioplegia. The aorta was vented and the proximal anastomosis to the D1 graft was accomplished using a running 5 0 Prolene suture after creating an aortotomy was a 5 millimeter punch. The cross-clamp was removed and all proximal and distal anastomoses were examined for hemostasis. The patient was weaned from cardiopulmonary bypass. Protamine was given. There was no adverse reaction. Decannulation was carried out without incident. Wound was checked for hemostasis which was obtained using electrocautery. A 36 [place] mediastinal and 32 [place] left pleural chest tubes were placed and secured to the skin with 0 silk suture. The sternum was closed with stainless steel wire. The fascia was closed with 1. PDS. The subcutaneous tissue was closed using a running 2-0 Vicryl suture. The skin was closed with 4-0 Monocryl. Sterile dressings were placed. At the end of the operation, all sponge, instruments, and needle counts were correct. The patient was transferred to the CVICU in stable condition. XC: 62 min CPB: 75 min Drains: mediastinal x 1 pleural x 1 Complications: none Disposition: to CVICU in stable condition Janneth Miguel MD Apr 16, 2017 11:09
[2017-04-16] MEDS ORDERED: RESP: RACEPINEPHRINE 2.25% 0.5 ML NEB NEB PRN (11:30)
[2017-04-16] MEDS: METOCLOPRAMIDE HCL 10 MG/2 ML VIAL IV PUSH SCH ×3 (12:43→21:00)
[2017-04-16] MEDS: ACETAMINOPHEN 1000 MG/100 ML 100 ML IV SCH ×3 (12:45→23:34)
--- NOTE | 2017-04-16 12:50 | RADRPT ---
EXAM DATE/TIME: 04/16/2017 12:10 [facility] COMPARISON: CHEST SINGLE AP, April 10, 2017, 17:34. INDICATIONS : Status post CABG. MEDICAL HISTORY : Gastroesophageal reflux disease. Hypercholesterolemia SURGICAL HISTORY : Lumbar fusion. ENCOUNTER: Subsequent ACUITY: 1 week PAIN SCORE: Non-responsive. LOCATION: Bilateral chest FINDINGS: A single AP semierect view of the chest was obtained and demonstrates the patient status post median sternotomy. An endotracheal tube is in place with the tip 4 cm above the patricio. A nasogastric tube h as been placed and is seen coursing through the esophagus and into the stomach. There is been placeme nt of a right internal jugular central venous line with the tip projected near the junction of the enriquez perior vena cava and right atrium. There is no visualized pneumothorax. There is a mediastinal chest tube and left-sided chest tube in place. There is hazy opacity at the left lung base and the heart si ze remains within normal limits with no perihilar edema. Atherosclerotic changes are present in the a josé miguel the patient is mildly rotated to the left. CONCLUSION: 1. Status post median sternotomy with intubation and no pneumothorax. 2. Mild hazy opacity remains the left lung base most consistent with atelectasis. Jose Stewart MD on April 16, 2017 at 12:47 Board Certified Radiologist. This report was verified electronically.
[2017-04-16] MEDS: RESP: ALBUTEROL 2.5 MG/IPRATROPIUM 0.5 MG NEB (PRN) NEB (13:15)
[2017-04-16] MEDS: LACTATED RINGER'S 1000 ML INJ 500 ML IV PRN (14:05)
--- NOTE | 2017-04-16 15:09 | HHI.FF ---
Face to Face Verification Diagnosis: (1) CAD (coronary artery disease) (2) Gout (3) NSTEMI (non-ST elevated myocardial infarction) (4) S/P CABG x 4 Physical Therapy Order: Evaluate and Treat Home Health Nursing Order: Signs/symptoms of disease process Medication education-adverse effect Wound care and dressing changes Nursing assessment with vital signs Instructions: Heart and Vascular Surgery patients *Special attention to sternal dressing Mandatory frequency Assess and evaluation, 4 days in a row The next week 3X week 2 times a week for 4 weeks 1 time a week for 5 weeks Schedule Heart and Vascular patients for full 60 day certification period Initial visit Review Open Heart Surgery Discharge Instructions (Sternal precautions, Activity, Elastic hose, Incision care, Driving, Incentive spirometry, Smoking, Wyatt, Work and other) Need Betadine to paint incision Medication reconciliation Importance of follow up care/ check on appointments Make calendar record temperature daily When to call [facility] nurse, review instructions, phone list Incentive Spirometry, demonstration Visit 1- Begin discharge instruction for patient family and/ or caregiver using teach back method- Signs and symptoms of infection Disease characteristics Medicines and side effects Foods and nutrition/ appetite Infection control/ hand washing/ hygiene Visit 2- Continue teaching Discharge instructions- include additional information on smoking cessation , sternal dressing (sternal vac) Visit 3- Continue teaching- Cough and deep breathing, incision monitoring. Choose my plate Visit 4- Continue teaching- Discuss limitations Discuss how they are feeling Discuss progress toward goals Remaining visits- continue teaching and monitoring PREVENA Single Use Negative Wound Therapy System Caregiver Instruction Sheet 1. A Prevena dressing system was applied to the chest incision during surgery , to promote wound healing. It works via a suction device (negative pressure wound therapy) to remove low to moderate levels of exudate (drainage) and infectious materials. We recommend that the device stay in place for up to seven days, from day of surgery. 2. Day of Surgery___04/16/17 Day of Removal 04/23/17 3. The dressing should only be removed by a health foster care social worker. Please arrange removal of device to coincide with Home Health visit and or with Nursing staff at Rehab 4. If skin reddening or irritation of skin occurs, or excessive drainage, please notify the Cardiovascular Surgeons office at [phone]. 5. Light showering is permissible; however the pump should be disconnected and placed in safe location, where it will not get wet. The dressing should not be exposed to direct spray or submerged in water. No bath tub / shower only. Ensure the end of the tubing attached to the dressing is facing down so that water does not enter the top of the tube. 6. To remove Prevena dressing: press purple button to turn off device / remove the suction. Then disconnect the tubing from the pump. The fixation strips should be stretched away from the skin and the dressing lifted at one corner and peeled back until it has been fully removed. 7. After removal, it is ok to shower daily using liquid dial soap and clean wash cloth, rinse and pat dry, and leave incision open to air dry. For any concerns regarding Prevena dressing, and or wounds, please contact Zahraa Donaldson, patient navigator at [phone] or notify the Cardiovascular Surgeons office at [phone]. Incentive spirometry Q1 hr x 10, while awake, also use acapella device hourly whole awake Sternal Breast Bone Precautions: NO pushing or pulling, ( pt must use sternal pillow to support chest with all activities and with coughing ( takes up to 3 months breast bone to heal ) Daily incision care: ok to shower daily, no tub bath. Wash all incisions with liquid dial soap, clean wash cloth to each site, rinse and pat dry. Observe for any signs of infection, such as drainage which is dark yellow, covarrubias, green or foul smelling. Immediately report to the surgeon any drainage from the chest incision, or legs, and for any abnormal drainage from the chest tube sites. Notify surgeon if any temp >101.5 degrees F. When specialty dressing removed/ or if you do not have one, continue to shower daily as above, then rinse and pat incision dry and paint with betadine daily x 5 days. Allow steri strips to fall off if you have any. Avoid lotions, creams, salves, oils, etc. for the first month Please see attached forms for additional instructions regarding post Open Heart specialty wound vacuum dressings. [place]ILTON or Prevena , Dressing to be removed by Nursing staff on __04/23/[address] Miguel patients , please obtain CBC, BMP, PA & Lat CXR in 2 weeks, results to Dr. Miguel ( prescription will be given) ( ) (Tele: [phone]) , Valve replacement pts will need 2decho in 2 weeks with results to Dr. Miguel . Please obtain 2 d echo at your railroad worker office if possible F/U appointment: as per [place] instructions: PCP in 2 weeks, CV surgeon 2 weeks, Manufacturing Leader 3-4 weeks For any questions regarding incisions/ dressing / meds / post op care or above Symptoms, Wednesday 8am-5pm Heart & Vascular Surgery Office ( Dr. Tillman & Dr. Miguel), After Hours / Nights (5pm -8am) Weekends and Holidays Please call [facility] ([facility]) Charge Nurse I have seen patient Orlando Arnold on 04/16/17. My clinical findings support the need for the requested home health care services because: Deconditioned w/ increased weakness I certify that my clinical findings support that this patient is homebound because: Post-op weakness Gypsy Champagne Apr 16, 2017 15:09
[2017-04-16] MEDS: RESP: ALBUTEROL 2.5 MG/IPRATROPIUM 0.5 MG NEB (SCH) NEB ×2 (15:39→22:45)
--- NOTE | 2017-04-16 15:56 | PD.CAR.PN ---
CVT Progress Note Subjective/Hospital Course: 77/ male c/o of recent chest pain , elevated BP , abnormal stress test , underwent cardiac cath by Dr Menon , found to have multi vessel disease EF 65 %/ evaluated for surgery PMH: gout, chronic neck and shoulder pain , back surgery , left hip surgery FEV1 1.56 carotid US : ok US lower ext : ok for surgery on sunday 04/15 pain free, for OR in am 04/16 CABG x 4, MEDINA to LAD - good, SVG to OM - good, SVG to D1 - good, SVG to PDA - fair, EVH Objective: Vital Signs Date Time Temp Pulse Resp B/P (MAP) Pulse Ox O2 Delivery O2 Flow Rate FiO2 04/16/17 15:28 98.3 04/16/17 15:24 98.3 63 17 107/53 (71) 95 04/16/17 14:03 17 04/16/17 12:51 93 Mask 13 04/16/17 12:36 98.0 04/16/17 12:21 63 04/16/17 12:20 92 Mechanical Ventilator 60 04/16/17 12:17 98.0 63 10 111/75 (87) 95 04/16/17 12:15 60 04/16/17 12:08 92 60 04/16/17 11:47 95 100 04/16/17 06:31 56 04/16/17 05:37 97.8 60 141/67 (91) 95 04/16/17 05:37 57 04/16/17 04:07 57 04/16/17 03:24 59 04/16/17 02:00 54 04/16/17 01:00 54 04/16/17 00:00 56 04/15/17 23:59 97.8 59 172/77 (108) 97 04/15/17 23:00 56 04/15/17 22:00 56 04/15/17 21:00 58 04/15/17 20:56 97.9 63 175/79 (111) 97 04/15/17 20:00 60 04/15/17 19:00 62 04/15/17 18:04 64 04/15/17 17:00 60 04/15/17 16:01 57 Result Diagram: 04/15/17 0445 04/15/17 0445 (1) Elevated troponin (2) Hypertensive urgency (3) CAD (coronary artery disease) Plan: severe multi-vessel disease, CABG scheduled on Wednesday on ASA, statin , BB (4) Gout Plan: continue allopurinol Gypsy Champagne Apr 16, 2017 15:56
[2017-04-16] MEDS: ALBUMIN 5% INJ 250 ML IV PRN (17:03)
[2017-04-16] MEDS: AMIODARONE 200 MG TAB PO SCH (21:00)
[2017-04-16] MEDS: oxyCODONE/ACETAMINOPHEN 5 MG/325 MG TAB PO PRN (21:20)
[2017-04-17] VITALS (12 sets, daily range): BP systolic 91–141; BP diastolic 33–67; PULSE 83–100; RESP 16–19; TEMP 98–98.7; O2SAT 93–96
[2017-04-17] MEDS: SODIUM CHLOR 0.9% 1000 ML INJ 1,000 ML IV SCH ×3 (01:18→21:18)
[2017-04-17] MEDS: ALBUMIN 5% INJ 250 ML IV PRN (02:35)
[2017-04-17] MEDS: LACTATED RINGER'S 1000 ML INJ 500 ML IV PRN (02:36)
[2017-04-17] MEDS: RESP: ALBUTEROL 2.5 MG/IPRATROPIUM 0.5 MG NEB (SCH) NEB (03:24)
[2017-04-17 04:48] LABS: HEMATOCRIT 29.3 % (39.0-51.0); MEAN CELL VOLUME 79.2 FL (80.0-100.0); MEAN CORPUSCULAR HEMOGLOBIN 26.8 PG (27.0-34.0); MEAN CORPUSCULAR HGB CONC 33.8 % (32.0-36.0); PLATELET COUNT 119 TH/MM3 (150-450); RED CELL DISTRIBUTION WIDTH 15.4 % (11.6-17.2); REVIEW FLAG FINAL; WHITE BLOOD COUNT 11.8 TH/MM3 (4.0-11.0)
[2017-04-17] MEDS: ACETAMINOPHEN 1000 MG/100 ML 100 ML IV SCH (05:16)
[2017-04-17] MEDS: PANTOPRAZOLE SOD 40 MG DELAYED RELEASE TAB PO SCH (05:17)
[2017-04-17 05:19] LABS: BICARBONATE 21.2 MEQ/L (21.0-32.0); MAGNESIUM 2.1 MG/DL (1.5-2.5); POTASSIUM 3.9 MEQ/L (3.5-5.1)
--- NOTE | 2017-04-17 05:29 | RADRPT ---
EXAM DATE/TIME: 04/17/2017 04:20 [facility] COMPARISON: No previous studies available for comparison. INDICATIONS : Shortness of breath, possible pneumothorax. MEDICAL HISTORY : Gastroesophageal reflux disease. Hypercholesterolemia. SURGICAL HISTORY : Fusion, lumbar. CABG. ENCOUNTER: Subsequent ACUITY: 1 week PAIN SCORE: 8/10 LOCATION: Bilateral chest FINDINGS: Median sternotomy changes are again noted. Left chest tube remains in place. No left pneumothorax. Ho wever, an apparent tiny pneumothorax has developed at the right base. Endotracheal tube and nasogastric tube have been removed. Right internal jugular central venous arianna ter remains in place, tip in the superior vena cava. Heart size stable, upper limits of normal. There is mild bibasilar atelectasis, slightly worse on the right and not significantly changed on the left. CONCLUSION: 1. Tiny basilar pneumothorax now evident on the right. 2. Left chest tube remains in place. No left pneumothorax. 3. Interim extubation and nasogastric tube removal. 4. Mild bibasilar atelectasis. Clarence Santizo MD on April 17, 2017 at 5:26 Board Certified Radiologist. This report was verified electronically.
[2017-04-17] MEDS: SODIUM CHLORIDE 0.9% FLUSH 10 ML FLUSH IV FLUSH SCH ×2 (08:17→21:10)
[2017-04-17] MEDS: METOCLOPRAMIDE HCL 10 MG/2 ML VIAL IV PUSH SCH ×4 (08:18→21:10)
[2017-04-17] MEDS: ALLOPURINOL 300 MG TAB PO SCH (08:18)
[2017-04-17] MEDS: DOCUSATE SODIUM 50 MG/SENNA 8.6 MG TAB PO SCH ×2 (08:18→21:09)
[2017-04-17] MEDS: PRAVASTATIN SOD 40 MG TAB PO SCH (08:18)
[2017-04-17] MEDS: AMIODARONE 200 MG TAB PO SCH ×2 (08:18→21:09)
[2017-04-17] MEDS: ASPIRIN EC 81 MG TABEC PO SCH (08:18)
--- NOTE | 2017-04-17 08:19 | PD.CAR.PN ---
CVT Progress Note CVT: POD #: 1 Subjective/Hospital Course: 77/ male c/o of recent chest pain , elevated BP , abnormal stress test , underwent cardiac cath by Dr Menon , found to have multi vessel disease EF 65 %/ evaluated for surgery PMH: gout, chronic neck and shoulder pain , back surgery , left hip surgery FEV1 1.56 carotid US : ok US lower ext : ok for surgery on sunday 04/15 pain free, for OR in am 04/16 CABG x 4, MEDINA to LAD - good, SVG to OM - good, SVG to D1 - good, SVG to PDA - fair, EVH 04/17/17 Doing well s/p CABG. No complaints today Objective: Vital Signs Date Time Temp Pulse Resp B/P (MAP) Pulse Ox O2 Delivery O2 Flow Rate FiO2 04/17/17 03:45 94 Nasal Cannula 4.00 04/17/17 03:40 93 04/17/17 03:00 98.7 83 16 107/54 (71) 96 121/37 (65) 04/17/17 00:10 16 04/16/17 23:48 94 Nasal Cannula 4.00 04/16/17 23:25 74 04/16/17 23:00 98.6 73 16 105/52 (69) 97 106/31 (56) 04/16/17 22:54 99 Nasal Cannula 4.00 04/16/17 22:20 16 04/16/17 20:00 96 Nasal Cannula 4.00 04/16/17 19:45 97 Nasal Cannula 5.00 04/16/17 19:20 64 04/16/17 19:00 98.3 64 20 97 119/54 (75) 04/16/17 16:08 99 Nasal Cannula 5.00 04/16/17 16:07 66 04/16/17 15:28 98.3 04/16/17 15:24 98.3 63 17 107/53 (71) 95 04/16/17 12:51 93 Mask 13 04/16/17 12:36 98.0 04/16/17 12:21 63 04/16/17 12:20 92 Mechanical Ventilator 60 04/16/17 12:17 98.0 63 10 111/75 (87) 95 04/16/17 12:15 60 04/16/17 12:08 92 60 04/16/17 11:47 95 100 Labs: Laboratory Tests Test 04/17/17 04:25 White Blood Count 11.8 TH/MM3 (4.0-11.0) Red Blood Count 3.70 MIL/MM3 (4.50-5.90) Hemoglobin 9.9 GM/DL (13.0-17.0) Hematocrit 29.3 % (39.0-51.0) Mean Corpuscular Volume 79.2 FL (80.0-100.0) Mean Corpuscular Hemoglobin 26.8 PG (27.0-34.0) Mean Corpuscular Hemoglobin Concent 33.8 % (32.0-36.0) Red Cell Distribution Width 15.4 % (11.6-17.2) Platelet Count 119 TH/MM3 (150-450) Mean Platelet Volume 9.1 FL (7.0-11.0) Blood Urea Nitrogen 16 MG/DL (7-18) Creatinine 0.76 MG/DL (0.60-1.30) Random Glucose 129 MG/DL (74-106) Calcium Level 7.9 MG/DL (8.5-10.1) Magnesium Level 2.1 MG/DL (1.5-2.5) Sodium Level 140 MEQ/L (136-145) Potassium Level 3.9 MEQ/L (3.5-5.1) Chloride Level 109 MEQ/L (98-107) Carbon Dioxide Level 21.2 MEQ/L (21.0-32.0) Anion Gap 10 MEQ/L (5-15) Estimat Glomerular Filtration Rate 100 ML/MIN (>89) Result Diagram: 04/17/17 0425 04/17/17 0425 Imaging: Last 24 hours Impressions Chest X-Ray 04/17/17 0500 Signed Impressions: Service Date/Time: Monday, April 17, 2017 04:20 - CONCLUSION: 1. Tiny basilar pneumothorax now evident on the right. 2. Left chest tube remains in place. No left pneumothorax. 3. Interim extubation and nasogastric tube removal. 4. Mild bibasilar atelectasis. Clarence Santizo MD Cardiovascular: RRR Telemetry: NSR Pulmonary: CTA GI/: NABS, NT Incision: Dry and intact CT: 200ml/12hrs Plan: Transfer to stepdown Encourage ambulation Hold beta juanjo today due to relatively low BP Advance diet d/c grant Continue chest tubes one more day. (1) Elevated troponin (2) Hypertensive urgency (3) CAD (coronary artery disease) Plan: severe multi-vessel disease, CABG scheduled on Wednesday on ASA, statin , BB (4) Gout Plan: continue allopurinol Janneth Miguel MD Apr 17, 2017 08:19
[2017-04-17] MEDS ORDERED: GLUCAGON 1 MG/ML VIAL OTHER PRN (10:45)
[2017-04-17] MEDS ORDERED: DEXTROSE 50% IN WATER 50 ML VIAL(D50) IV PUSH PRN (10:45)
[2017-04-17] MEDS: oxyCODONE/ACETAMINOPHEN 5 MG/325 MG TAB PO PRN ×2 (13:05→21:09)
[2017-04-17] MEDS: INDIVIDUALIZED INSULIN NOVOLOG SUPPLEMENTAL SCALE SQ SCH ×3 (14:00→21:28)
[2017-04-17] MEDS ORDERED: diphenhydrAMINE HCL 25 MG CAP PO PRN (22:45)
[2017-04-18] VITALS (29 sets, daily range): BP systolic 112–148; BP diastolic 57–65; PULSE 75–144; RESP 17–20; TEMP 97.7–98.8; O2SAT 92–98
[2017-04-18] MEDS: INDIVIDUALIZED INSULIN NOVOLOG SUPPLEMENTAL SCALE SQ SCH ×6 (02:00→21:00)
[2017-04-18 03:41] LABS: AUTOMATED NEUTROPHIL # 10.6 TH/MM3 (1.8-7.7); BASOPHIL % 0.2 % (0.0-2.0); HEMATOCRIT 28.3 % (39.0-51.0); HEMO FLAGS DIFF FINAL; LYMPH % 9.8 % (9.0-44.0); LYMPHOCYTE # 1.3 TH/MM3 (1.0-4.8); MEAN CELL VOLUME 79.9 FL (80.0-100.0); MEAN CORPUSCULAR HEMOGLOBIN 26.4 PG (27.0-34.0); MONO % 8.7 % (0.0-8.0); NEUT % 81.3 % (16.0-70.0); PLATELET COUNT 137 TH/MM3 (150-450); RED BLOOD COUNT 3.54 MIL/MM3 (4.50-5.90); RED CELL DISTRIBUTION WIDTH 15.5 % (11.6-17.2)
[2017-04-18 03:56] LABS: BICARBONATE 25.5 MEQ/L (21.0-32.0); POTASSIUM 3.8 MEQ/L (3.5-5.1)
[2017-04-18] MEDS: PANTOPRAZOLE SOD 40 MG DELAYED RELEASE TAB PO SCH (06:40)
[2017-04-18] MEDS: SODIUM CHLOR 0.9% 1000 ML INJ 1,000 ML IV SCH (07:18)
[2017-04-18] MEDS: oxyCODONE/ACETAMINOPHEN 5 MG/325 MG TAB PO PRN ×2 (07:50→15:02)
[2017-04-18] MEDS: PRAVASTATIN SOD 40 MG TAB PO SCH (08:48)
[2017-04-18] MEDS: METOCLOPRAMIDE HCL 10 MG/2 ML VIAL IV PUSH SCH ×4 (08:48→20:22)
[2017-04-18] MEDS: DOCUSATE SODIUM 50 MG/SENNA 8.6 MG TAB PO SCH ×2 (08:48→20:22)
[2017-04-18] MEDS: SODIUM CHLORIDE 0.9% FLUSH 10 ML FLUSH IV FLUSH SCH ×2 (08:48→20:51)
[2017-04-18] MEDS: ASPIRIN EC 81 MG TABEC PO SCH (08:48)
[2017-04-18] MEDS: ALLOPURINOL 300 MG TAB PO SCH (08:48)
[2017-04-18] MEDS: AMIODARONE 200 MG TAB PO SCH ×2 (08:48→20:22)
[2017-04-18] MEDS: RESP: ALBUTEROL 2.5 MG/IPRATROPIUM 0.5 MG NEB (PRN) NEB (08:56)
--- NOTE | 2017-04-18 09:09 | PD.CAR.PN ---
CVT Progress Note CVT: POD #: 2 Subjective/Hospital Course: 77/ male c/o of recent chest pain , elevated BP , abnormal stress test , underwent cardiac cath by Dr Menon , found to have multi vessel disease EF 65 %/ evaluated for surgery PMH: gout, chronic neck and shoulder pain , back surgery , left hip surgery FEV1 1.56 carotid US : ok US lower ext : ok for surgery on sunday 04/15 pain free, for OR in am 04/16 CABG x 4, MEDINA to LAD - good, SVG to OM - good, SVG to D1 - good, SVG to PDA - fair, EVH 04/17/17 Doing well s/p CABG. No complaints today 04/18/17 No complaints today, doing well Objective: Vital Signs Date Time Temp Pulse Resp B/P (MAP) Pulse Ox O2 Delivery O2 Flow Rate FiO2 04/18/17 08:56 98 Nasal Cannula 2.00 04/18/17 06:36 92 04/18/17 05:04 95 04/18/17 04:20 90 04/18/17 03:10 95 Nasal Cannula 2.00 04/18/17 03:10 98.8 87 17 121/57 (78) 95 04/18/17 03:10 80 04/18/17 02:11 87 04/18/17 01:06 90 04/18/17 00:15 88 04/17/17 23:00 98.0 90 19 130/63 (85) 94 04/17/17 23:00 94 Nasal Cannula 2.00 04/17/17 23:00 95 04/17/17 22:00 100 04/17/17 21:00 90 04/17/17 20:00 90 04/17/17 19:54 95 Nasal Cannula 2.00 04/17/17 19:40 94 04/17/17 19:40 94 Nasal Cannula 2.00 04/17/17 19:40 98.1 91 18 122/61 (81) 93 04/17/17 15:00 89 04/17/17 15:00 98.5 87 18 141/67 (91) 94 04/17/17 15:00 94 Nasal Cannula 3.00 04/17/17 12:24 95 Nasal Cannula 2.00 04/17/17 11:00 85 04/17/17 11:00 95 Nasal Cannula 4.00 04/17/17 11:00 98.6 86 18 126/62 (83) 95 Arterial Line Labs: Laboratory Tests Test 04/18/17 03:15 White Blood Count 13.0 TH/MM3 (4.0-11.0) Red Blood Count 3.54 MIL/MM3 (4.50-5.90) Hemoglobin 9.3 GM/DL (13.0-17.0) Hematocrit 28.3 % (39.0-51.0) Mean Corpuscular Volume 79.9 FL (80.0-100.0) Mean Corpuscular Hemoglobin 26.4 PG (27.0-34.0) Mean Corpuscular Hemoglobin Concent 33.0 % (32.0-36.0) Red Cell Distribution Width 15.5 % (11.6-17.2) Platelet Count 137 TH/MM3 (150-450) Mean Platelet Volume 9.2 FL (7.0-11.0) Neutrophils (%) (Auto) 81.3 % (16.0-70.0) Lymphocytes (%) (Auto) 9.8 % (9.0-44.0) Monocytes (%) (Auto) 8.7 % (0.0-8.0) Eosinophils (%) (Auto) 0.0 % (0.0-4.0) Basophils (%) (Auto) 0.2 % (0.0-2.0) Neutrophils # (Auto) 10.6 TH/MM3 (1.8-7.7) Lymphocytes # (Auto) 1.3 TH/MM3 (1.0-4.8) Monocytes # (Auto) 1.1 TH/MM3 (0-0.9) Eosinophils # (Auto) 0.0 TH/MM3 (0-0.4) Basophils # (Auto) 0.0 TH/MM3 (0-0.2) CBC Comment DIFF FINAL Differential Comment Blood Urea Nitrogen 13 MG/DL (7-18) Creatinine 0.81 MG/DL (0.60-1.30) Random Glucose 119 MG/DL (74-106) Calcium Level 7.9 MG/DL (8.5-10.1) Magnesium Level 2.0 MG/DL (1.5-2.5) Sodium Level 137 MEQ/L (136-145) Potassium Level 3.8 MEQ/L (3.5-5.1) Chloride Level 103 MEQ/L (98-107) Carbon Dioxide Level 25.5 MEQ/L (21.0-32.0) Anion Gap 9 MEQ/L (5-15) Estimat Glomerular Filtration Rate 93 ML/MIN (>89) Result Diagram: 04/18/1731404/18/17314 Cardiovascular: RRR Telemetry: NSR Pulmonary: CTA GI/: NABS, NT Incision: dry and intact CT: 210ml/12hrs Plan: Beta juanjo Continue chest tubes one more day Wean oxygen encourage ambulation (1) Elevated troponin (2) Hypertensive urgency (3) CAD (coronary artery disease) Plan: severe multi-vessel disease, CABG scheduled on Wednesday on ASA, statin , BB (4) Gout Plan: continue allopurinol Janneth Miguel MD Apr 18, 2017 09:09
[2017-04-18] MEDS: METOPROLOL TARTRATE 25 MG TAB PO SCH ×2 (09:15→20:22)
--- NOTE | 2017-04-18 21:01 | EKG ---
Date Performed: 04/17/2017 Time Performed: 04:36:40 PTAGE: 77 years EKG: Sinus rhythm with borderline 1st degree A-V block Left axis deviation RBBB with left anterior fascicular block Ab normal ECG PREVIOUS TRACING : 04/10/2017 20.15 DOCTOR: Betty Boo Interpretating Date/Time 04/18/2017 20:54:01
--- NOTE | 2017-04-18 21:11 | RADRPT ---
EXAM DATE/TIME: 04/18/2017 19:54 [facility] COMPARISON: CHEST SINGLE AP, April 17, 2017, 4:20. INDICATIONS : Short of breath MEDICAL HISTORY : Gastroesophageal reflux disease. Hypercholesterolemia SURGICAL HISTORY : Fusion, lumbar. CABG. ENCOUNTER: Subsequent ACUITY: 1 week PAIN SCORE: 6/10 LOCATION: chest FINDINGS: The patient is rotated towards the right. Right internal jugular catheter tip the cavoatrial junctio n. Left chest drainage tube unchanged in the lateral left chest. Mediastinal drain in place. The h eart is upper limits normal in size. There is some new patchy consolidation in the right lower lung obscuring a portion of the right hemidiaphragm. Patchy infiltrates in the medial left lung stable fr om prior. CONCLUSION: New infiltrates in the right base and stable infiltrates in the medial left lung. Left chest drainag e tube in place without evidence of pneumothorax. Kamari Melgar MD on April 18, 2017 at 21:08 Board Certified Radiologist. This report was verified electronically.
[2017-04-18] MEDS ORDERED: AMIODARONE 150 MG/D5W 97 ML BOLUS 10 MINUTES IV ONE ×2 (21:15)
[2017-04-18] MEDS ORDERED: AMIODARONE INJ 450 MG in D5W (EXCEL BAG) INJ 241 ML IV PRN (22:45)
[2017-04-19] VITALS (25 sets, daily range): BP systolic 116–149; BP diastolic 58–67; PULSE 66–85; RESP 16–18; TEMP 97.6–98.3; O2SAT 92–99
[2017-04-19 04:47] LABS: HEMATOCRIT 28.7 % (39.0-51.0); MEAN CELL VOLUME 80.4 FL (80.0-100.0); MEAN CORPUSCULAR HGB CONC 33.6 % (32.0-36.0); PLATELET COUNT 171 TH/MM3 (150-450); RED BLOOD COUNT 3.57 MIL/MM3 (4.50-5.90); RED CELL DISTRIBUTION WIDTH 15.8 % (11.6-17.2); REVIEW FLAG FINAL; WHITE BLOOD COUNT 13.8 TH/MM3 (4.0-11.0)
[2017-04-19 05:19] LABS: BICARBONATE 26.6 MEQ/L (21.0-32.0)
[2017-04-19] MEDS: PANTOPRAZOLE SOD 40 MG DELAYED RELEASE TAB PO SCH (05:41)
--- NOTE | 2017-04-19 07:09 | PD.CAR.PN ---
CVT Progress Note CVT: POD #: 3 Subjective/Hospital Course: 77/ male c/o of recent chest pain , elevated BP , abnormal stress test , underwent cardiac cath by Dr Menon , found to have multi vessel disease EF 65 %/ evaluated for surgery PMH: gout, chronic neck and shoulder pain , back surgery , left hip surgery FEV1 1.56 carotid US : ok US lower ext : ok for surgery on sunday 04/15 pain free, for OR in am 04/16 CABG x 4, MEDINA to LAD - good, SVG to OM - good, SVG to D1 - good, SVG to PDA - fair, EVH 04/17/17 Doing well s/p CABG. No complaints today 04/18/17 No complaints today, doing well 04/19/17 No complaints this morning. Appears distended Objective: Vital Signs Date Time Temp Pulse Resp B/P (MAP) Pulse Ox O2 Delivery O2 Flow Rate FiO2 04/19/17 06:02 74 04/19/17 05:08 78 04/19/17 04:01 81 04/19/17 03:55 75 04/19/17 03:55 98.3 73 18 144/65 (91) 94 04/19/17 03:55 94 Room Air 04/19/17 02:14 76 04/19/17 01:02 73 04/19/17 00:17 73 04/19/17 00:06 75 112/59 04/18/17 23:50 95 Nasal Cannula 3.00 04/18/17 23:50 98.0 75 19 112/59 (76) 95 04/18/17 23:50 79 04/18/17 22:55 128 04/18/17 21:35 137 110/61 04/18/17 21:00 144 04/18/17 20:09 92 Nasal Cannula 2.00 04/18/17 20:00 84 04/18/17 19:45 97.7 85 20 132/61 (84) 93 04/18/17 19:45 93 Nasal Cannula 3.00 04/18/17 19:45 85 04/18/17 18:00 83 04/18/17 17:00 84 04/18/17 16:00 90 04/18/17 15:23 94 Nasal Cannula 3.00 04/18/17 15:23 98.4 88 18 148/65 (92) 94 04/18/17 15:00 89 04/18/17 14:00 85 04/18/17 13:00 84 04/18/17 12:00 83 04/18/17 11:13 96 Nasal Cannula 3.00 04/18/17 11:13 98.3 87 18 130/58 (82) 96 04/18/17 11:00 87 04/18/17 10:00 87 04/18/17 09:00 96 04/18/17 08:56 98 Nasal Cannula 2.00 04/18/17 08:00 90 04/18/17 07:15 98.0 95 18 146/64 (91) 94 04/18/17 07:15 94 Nasal Cannula 3.00 Labs: Laboratory Tests Test 04/19/17 04:36 White Blood Count 13.8 TH/MM3 (4.0-11.0) Red Blood Count 3.57 MIL/MM3 (4.50-5.90) Hemoglobin 9.6 GM/DL (13.0-17.0) Hematocrit 28.7 % (39.0-51.0) Mean Corpuscular Volume 80.4 FL (80.0-100.0) Mean Corpuscular Hemoglobin 27.0 PG (27.0-34.0) Mean Corpuscular Hemoglobin Concent 33.6 % (32.0-36.0) Red Cell Distribution Width 15.8 % (11.6-17.2) Platelet Count 171 TH/MM3 (150-450) Mean Platelet Volume 9.2 FL (7.0-11.0) Blood Urea Nitrogen 16 MG/DL (7-18) Creatinine 0.84 MG/DL (0.60-1.30) Random Glucose 125 MG/DL (74-106) Calcium Level 8.1 MG/DL (8.5-10.1) Sodium Level 138 MEQ/L (136-145) Potassium Level 4.0 MEQ/L (3.5-5.1) Chloride Level 103 MEQ/L (98-107) Carbon Dioxide Level 26.6 MEQ/L (21.0-32.0) Anion Gap 8 MEQ/L (5-15) Estimat Glomerular Filtration Rate 89 ML/MIN (>89) Result Diagram: 04/19/17 0436 04/19/17 0436 Cardiovascular: RRR Telemetry: NSR Pulmonary: Decreased BS bilat GI/: Decreased BS, distended, non-tender Incision: dry and intact CT: ~40ml/12hrs Plan: D/C chest tubes Stim BM Up to chair, ambulate diurese Increase amio dose Supp K (1) Elevated troponin (2) Hypertensive urgency (3) CAD (coronary artery disease) Plan: severe multi-vessel disease, CABG scheduled on Wednesday on ASA, statin , BB (4) Gout Plan: continue allopurinol Janneth Miguel MD Apr 19, 2017 07:09
[2017-04-19] MEDS: INDIVIDUALIZED INSULIN NOVOLOG SUPPLEMENTAL SCALE SQ SCH ×4 (08:00→20:56)
[2017-04-19] MEDS: METOCLOPRAMIDE HCL 10 MG/2 ML VIAL IV PUSH SCH ×4 (08:00→20:55)
[2017-04-19] MEDS: ALLOPURINOL 300 MG TAB PO SCH (09:18)
[2017-04-19] MEDS: ASPIRIN EC 81 MG TABEC PO SCH (09:18)
[2017-04-19] MEDS: METOPROLOL TARTRATE 25 MG TAB PO SCH ×2 (09:18→20:53)
[2017-04-19] MEDS: DOCUSATE SODIUM 50 MG/SENNA 8.6 MG TAB PO SCH ×2 (09:19→20:54)
[2017-04-19] MEDS: POTASSIUM CHLORIDE 10 MEQ CONTROLLED RELEASE TAB PO SCH ×2 (09:19→20:54)
[2017-04-19] MEDS: PRAVASTATIN SOD 40 MG TAB PO SCH (09:19)
[2017-04-19] MEDS: AMIODARONE 200 MG TAB PO SCH ×2 (09:20→20:54)
[2017-04-19] MEDS: FUROSEMIDE 40 MG/4 ML VIAL IV PUSH SCH ×2 (09:20→18:07)
[2017-04-19] MEDS: SODIUM CHLORIDE 0.9% FLUSH 10 ML FLUSH IV FLUSH SCH ×2 (09:20→20:55)
--- NOTE | 2017-04-19 11:17 | PD.CARD.PN ---
Subjective Subjective Remarks No complaints, denies CP/SOB Up to the chair, walking with PT Telemetry showing episodes of Afib with RVR, currently normal sinus rhythm Objective Medications Current Medications Medications (Trade) Dose Ordered Sig/Popeye Route Start Time Stop Time Status Last Admin (Ecotrin Ec) 81 mg DAILY PO 04/11/17 09:00 04/19/17 09:18 (Pravachol) 40 mg DAILY PO 04/11/17 09:00 04/19/17 09:19 (Carrie-Colace) 1 tab BID PO 04/10/17 21:00 04/19/17 09:19 (Milk Of Magnesia Liq) 30 ml Q12H PRN PO 04/10/17 19:30 (Senokot) 17.2 mg Q12H PRN PO 04/10/17 19:30 (Dulcolax Supp) 10 mg DAILY PRN RECTAL 04/10/17 19:30 (Lactulose Liq) 30 ml DAILY PRN PO 04/10/17 19:30 (Zyloprim) 300 mg DAILY PO 04/11/17 09:00 04/19/17 09:18 (Pill Splitter) 1 ea UNSCH PRN OTHER 04/10/17 20:00 04/11/17 20:26 Papaverine HCl 60 mg/Nitroglycerin 100 mcg/Diltiazem HCl 100 mg/Sodium Chloride 100 ml @ 0 mls/hr PUBLIC INFORMATION COORDINATOR IRRIGATION 04/13/17 17:30 04/20/17 17:29 04/16/17 08:19 Cefazolin Sodium 500 mg/Sodium Chloride 505 ml @ 0 mls/hr PUBLIC INFORMATION COORDINATOR IRRIGATION 04/13/17 17:30 04/20/17 17:29 04/16/17 08:15 Cefazolin Sodium/ Dextrose 50 ml @ 150 mls/hr PUBLIC INFORMATION COORDINATOR IV 04/13/17 17:30 04/20/17 17:29 04/16/17 07:30 (Lopressor) 12.5 mg PUBLIC INFORMATION COORDINATOR PO 04/14/17 05:00 04/20/17 04:59 (Hibiclens 4% Top Soln) 1 applic PUBLIC INFORMATION COORDINATOR TOPICAL 04/13/17 17:30 04/20/17 17:29 (NS Flush) 2 ml BID IV FLUSH 04/16/17 21:00 04/19/17 09:20 (NS Flush) 2 ml UNSCH PRN IV FLUSH 04/16/17 11:00 Albumin Human 250 ml @ 250 mls/hr UNSCH PRN IV 04/16/17 11:00 04/17/17 02:35 (Protonix) 40 mg DAILY@06 PO 04/17/17 06:00 04/19/17 05:41 (Reglan Inj) 10 mg ACHS IV PUSH 04/16/17 12:00 04/18/17 20:22 (Tylenol) 650 mg Q4H PRN PO 04/16/17 11:00 (Tylenol Supp) 650 mg Q4H PRN RECTAL 04/16/17 11:00 (Zofran Inj) 4 mg Q6H PRN IV PUSH 04/16/17 11:00 (Apresoline Inj) 10 mg Q4H PRN IV PUSH 04/16/17 11:00 (Lopressor Inj) 2.5 mg Q1H PRN IV PUSH 04/16/17 11:00 04/18/17 20:26 Potassium Chloride 100 ml @ 50 mls/hr UNSCH PRN IV 04/16/17 11:00 Potassium Chloride 100 ml @ 50 mls/hr UNSCH PRN IV 04/16/17 11:00 (KCl) 20 meq UNSCH PRN PO 04/16/17 11:00 (KCl) 40 meq UNSCH PRN PO 04/16/17 11:00 Magnesium Sulfate 2 gm/Sodium Chloride 104 ml @ 100 mls/hr UNSCH PRN IV 04/16/17 11:00 Magnesium Sulfate 2 gm/Sodium Chloride 104 ml @ 50 mls/hr UNSCH PRN IV 04/16/17 11:00 (Calcium Chloride Inj) 0.5 gm UNSCH PRN IV PUSH 04/16/17 11:00 (D50w (Vial) Inj) 50 ml UNSCH PRN IV PUSH 04/16/17 11:00 (Duoneb Neb) 1 ampule Q2HR NEB PRN NEB 04/16/17 11:00 04/18/17 08:56 (D50w (Vial) Inj) 50 ml UNSCH PRN IV PUSH 04/17/17 10:45 (Glucagon Inj) 1 mg UNSCH PRN OTHER 04/17/17 10:45 (Benadryl) 25 mg HS PRN PO 04/17/17 22:45 04/17/17 23:26 (NovoLOG SUPPLEMENTAL SCALE) 1 ACHS SQ 04/18/17 12:00 04/18/17 21:00 (Lopressor) 25 mg Q12HR PO 04/19/17 09:00 04/19/17 09:18 (Cordarone) 400 mg Q12HR PO 04/19/17 09:00 04/19/17 09:20 (Lasix Inj) 40 mg BID@09,18 IV PUSH 04/19/17 09:00 04/19/17 09:20 (KCl) 30 meq Q12HR PO 04/19/17 09:00 04/19/17 09:19 (Lipitor) 40 mg HS PO 04/19/17 21:00 Vital Signs / I&O Vital Signs Date Time Temp Pulse Resp B/P (MAP) Pulse Ox O2 Delivery O2 Flow Rate FiO2 04/19/17 11:00 99 Room Air 04/19/17 11:00 97.6 79 18 125/67 (86) 99 04/19/17 11:00 69 04/19/17 10:00 85 04/19/17 09:00 79 04/19/17 08:39 96 21 04/19/17 08:00 98.1 75 16 144/65 (91) 94 04/19/17 08:00 75 04/19/17 07:00 96 Room Air 04/19/17 06:02 74 04/19/17 05:08 78 04/19/17 04:01 81 04/19/17 03:55 75 04/19/17 03:55 98.3 73 18 144/65 (91) 94 04/19/17 03:55 94 Room Air 04/19/17 02:14 76 04/19/17 01:02 73 04/19/17 00:17 73 04/19/17 00:06 75 112/59 04/18/17 23:50 95 Nasal Cannula 3.00 04/18/17 23:50 98.0 75 19 112/59 (76) 95 04/18/17 23:50 79 04/18/17 22:55 128 04/18/17 21:35 137 110/61 04/18/17 21:00 144 04/18/17 20:09 92 Nasal Cannula 2.00 04/18/17 20:00 84 04/18/17 19:45 97.7 85 20 132/61 (84) 93 04/18/17 19:45 93 Nasal Cannula 3.00 04/18/17 19:45 85 04/18/17 18:00 83 04/18/17 17:00 84 04/18/17 16:00 90 04/18/17 15:23 94 Nasal Cannula 3.00 04/18/17 15:23 98.4 88 18 148/65 (92) 94 04/18/17 15:00 89 04/18/17 14:00 85 04/18/17 13:00 84 04/18/17 12:00 83 04/18/17 11:13 96 Nasal Cannula 3.00 04/18/17 11:13 98.3 87 18 130/58 (82) 96 I/O 04/18/17 04/18/17 04/18/17 04/19/17 04/19/17 04/19/17 07:00 15:00 23:00 07:00 15:00 23:00 Intake Total 720 ml 920 ml 480 ml Output Total 760 ml 600 ml 365 ml Balance -40 ml 320 ml 115 ml Intake Oral 620 ml 820 ml 480 ml IV Total 100 ml 100 ml Output Urine Total 550 ml 450 ml 325 ml Chest Tube Drainage Total 210 ml 150 ml 40 ml # Bowel Movements 0 Physical Exam GENERAL: NAD, AAOx3 SKIN: Warm and dry. HEAD: Atraumatic. Normocephalic. EYES: Pupils equal and round. No scleral icterus. No injection or drainage. ENT: No nasal bleeding or discharge. Mucous membranes pink and moist. NECK: Trachea midline. No JVD. CARDIOVASCULAR: Regular rate and rhythm. RESPIRATORY: No accessory muscle use. Clear to auscultation. Breath sounds equal bilaterally. GASTROINTESTINAL: Abdomen soft, non-tender, nondistended. Hepatic and splenic margins not palpable. MUSCULOSKELETAL: Extremities without clubbing, cyanosis, or edema. No obvious deformities. NEUROLOGICAL: Awake and alert. No obvious cranial nerve deficits. Motor grossly within normal limits. Five out of 5 muscle strength in the arms and legs. Normal speech. PSYCHIATRIC: Appropriate mood and affect; insight and judgment normal. Laboratory Laboratory Tests Test 04/19/17 04:36 White Blood Count 13.8 TH/MM3 Red Blood Count 3.57 MIL/MM3 Hemoglobin 9.6 GM/DL Hematocrit 28.7 % Mean Corpuscular Volume 80.4 FL Mean Corpuscular Hemoglobin 27.0 PG Mean Corpuscular Hemoglobin Concent 33.6 % Red Cell Distribution Width 15.8 % Platelet Count 171 TH/MM3 Mean Platelet Volume 9.2 FL Blood Urea Nitrogen 16 MG/DL Creatinine 0.84 MG/DL Random Glucose 125 MG/DL Calcium Level 8.1 MG/DL Sodium Level 138 MEQ/L Potassium Level 4.0 MEQ/L Chloride Level 103 MEQ/L Carbon Dioxide Level 26.6 MEQ/L Anion Gap 8 MEQ/L Estimat Glomerular Filtration Rate 89 ML/MIN Assessment and Plan Problem List: (1) Elevated troponin ICD Codes: R74.8 - Abnormal levels of other serum enzymes Status: Acute (2) Hypertensive urgency ICD Codes: I16.0 - Hypertensive urgency (3) CAD (coronary artery disease) ICD Codes: I25.10 - Atherosclerotic heart disease of [place] coronary artery without angina pectoris (4) Gout ICD Codes: M10.9 - Gout, unspecified Assessment and Plan 1) MVCAD s/p CABGx4 POD #3 MEDINA to LAD SVG to Diag SVG to OM SVG to PDA 2) EF 60-65% 3) Afib with RVR Con't Amio at higher dose and BB Plan anti-coagulation with Eliquis Chest tubes just removed, will discuss with CT surgery about timing 4) Con't statin therapy with Lipitor 5) Follow up with Dr. Joiner in [place] on discharge Pietro Menon DO Apr 19, 2017 11:17
[2017-04-19] MEDS: ATORVASTATIN 40 MG TAB PO SCH (20:53)
[2017-04-20] VITALS (30 sets, daily range): BP systolic 114–154; BP diastolic 58–82; PULSE 62–137; RESP 16–20; TEMP 97.4–98.7; O2SAT 93–96
[2017-04-20] MEDS: PANTOPRAZOLE SOD 40 MG DELAYED RELEASE TAB PO SCH (05:55)
[2017-04-20] MEDS: INDIVIDUALIZED INSULIN NOVOLOG SUPPLEMENTAL SCALE SQ SCH ×4 (07:33→21:00)
[2017-04-20] MEDS: METOCLOPRAMIDE HCL 10 MG/2 ML VIAL IV PUSH SCH ×4 (08:00→21:11)
[2017-04-20] MEDS: AMIODARONE 200 MG TAB PO SCH ×2 (08:08→21:07)
[2017-04-20] MEDS: METOPROLOL TARTRATE 25 MG TAB PO SCH (08:09)
--- NOTE | 2017-04-20 08:43 | PD.CAR.PN ---
CVT Progress Note CVT: POD #: 4 Subjective/Hospital Course: 77/ male c/o of recent chest pain , elevated BP , abnormal stress test , underwent cardiac cath by Dr Menon , found to have multi vessel disease EF 65 %/ evaluated for surgery PMH: gout, chronic neck and shoulder pain , back surgery , left hip surgery FEV1 1.56 carotid US : ok US lower ext : ok for surgery on sunday 04/15 pain free, for OR in am 04/16 CABG x 4, MEDINA to LAD - good, SVG to OM - good, SVG to D1 - good, SVG to PDA - fair, EVH 04/17/17 Doing well s/p CABG. No complaints today 04/18/17 No complaints today, doing well 04/19/17 No complaints this morning. Appears distended 04/20/17 Ready for D/C, but back in AFIB with VR in 140s this morning. Will have to hold discharge Objective: Vital Signs Date Time Temp Pulse Resp B/P (MAP) Pulse Ox O2 Delivery O2 Flow Rate FiO2 04/20/17 08:09 93 21 04/20/17 07:40 98.1 79 18 140/64 (89) 94 04/20/17 07:00 81 04/20/17 06:08 77 04/20/17 05:28 76 04/20/17 04:12 73 04/20/17 03:40 97.8 78 18 154/72 (99) 95 04/20/17 03:40 95 Room Air 04/20/17 03:25 71 04/20/17 02:19 68 04/20/17 01:00 70 04/20/17 00:00 70 04/19/17 23:34 97.9 66 16 116/58 (77) 94 04/19/17 23:34 94 Room Air 04/19/17 23:00 69 04/19/17 22:00 72 04/19/17 22:00 21 04/19/17 21:15 76 04/19/17 20:20 74 04/19/17 19:35 76 04/19/17 19:35 98.0 80 18 149/67 (94) 92 04/19/17 19:35 92 Room Air 04/19/17 18:00 80 04/19/17 17:00 78 04/19/17 16:00 75 04/19/17 15:00 98.1 75 16 124/58 (80) 99 04/19/17 15:00 73 04/19/17 15:00 99 Room Air 04/19/17 14:00 76 04/19/17 13:00 75 04/19/17 12:00 79 04/19/17 11:00 99 Room Air 04/19/17 11:00 97.6 79 18 125/67 (86) 99 04/19/17 11:00 69 04/19/17 10:00 85 04/19/17 09:00 79 Result Diagram: 04/19/17 0436 04/19/17 0436 Imaging: Last Impressions Chest X-Ray 04/18/17 0000 Signed Impressions: Service Date/Time: Tuesday, April 18, 2017 19:54 - CONCLUSION: New infiltrates in the right base and stable infiltrates in the medial left lung. Left chest drainage tube in place without evidence of pneumothorax. Kamari Melgar MD Lower Extremity Ultrasound 04/13/17 0000 Signed Impressions: Service Date/Time: Thursday, April 13, 2017 18:49 - CONCLUSION: Normal examination. Trinity Holland MD Carotid Artery Ultrasound 04/13/17 0000 Signed Impressions: Service Date/Time: Thursday, April 13, 2017 19:13 - CONCLUSION: No evidence for hemodynamically significant stenosis. Trinity Holland MD Myocardial Perfusion Scan Nuc Med 04/12/17 0000 Signed Impressions: Service Date/Time: Wednesday, April 12, 2017 11:23 - CONCLUSION: 1. Scintigraphic findings suggest a very small area of ischemia in the mid LAD distribution. 2. Excellent wall motion throughout with an estimated ejection fraction of 68%%. RISK CATEGORY: Intermediate (1-3%% Annual Mortality Rate) Fortino Huerta MD Head CT 04/10/17 [id number] Signed Impressions: Service Date/Time: Monday, April 10, 2017 17:37 - CONCLUSION: 1. No acute findings. Cortical volume loss. Mor Burton MD Cardiovascular: IRR Telemetry: AFIB Pulmonary: CTA GI/: NABS, NT Incision: dry andintact Plan: Amio bolus Supp Mg Start Eliquis Increase beta juanjo dose Will monitor and d/c when rhythm is stable (1) Elevated troponin (2) Hypertensive urgency (3) CAD (coronary artery disease) Plan: severe multi-vessel disease, CABG scheduled on Wednesday on ASA, statin , BB (4) Gout Plan: continue allopurinol Janneth Miguel MD Apr 20, 2017 08:43
[2017-04-20] MEDS ORDERED: AMIODARONE 150 MG/D5W 97 ML BOLUS 10 MINUTES IV ONE ×2 (08:45)
[2017-04-20] MEDS: SODIUM CHLORIDE 0.9% FLUSH 10 ML FLUSH IV FLUSH SCH ×2 (08:49→21:04)
[2017-04-20] MEDS: MAGNESIUM SULFATE 1 GM PREMIX 100 ML IV SCH ×2 (08:49→09:16)
[2017-04-20] MEDS: DOCUSATE SODIUM 50 MG/SENNA 8.6 MG TAB PO SCH ×2 (09:00→21:11)
[2017-04-20] MEDS: FUROSEMIDE 40 MG/4 ML VIAL IV PUSH SCH (09:13)
[2017-04-20] MEDS: METOPROLOL TARTRATE 50 MG TAB PO SCH ×2 (09:14→21:10)
[2017-04-20] MEDS: ASPIRIN EC 81 MG TABEC PO SCH (09:14)
[2017-04-20] MEDS: APIXABAN 5 MG TABLET PO SCH ×2 (09:15→21:10)
[2017-04-20] MEDS: ALLOPURINOL 300 MG TAB PO SCH (09:15)
[2017-04-20] MEDS: POTASSIUM CHLORIDE 10 MEQ CONTROLLED RELEASE TAB PO SCH ×2 (09:15→21:08)
--- NOTE | 2017-04-20 12:12 | PD.CARD.PN ---
Subjective Subjective Remarks No complaints, denies CP/SOB Up to the chair, walking with PT Telemetry showing AFib with RVR, patient asymptomatic Objective Medications Current Medications Medications (Trade) Dose Ordered Sig/Popeye Route Start Time Stop Time Status Last Admin (Ecotrin Ec) 81 mg DAILY PO 04/11/17 09:00 04/20/17 09:14 (Carrie-Colace) 1 tab BID PO 04/10/17 21:00 04/19/17 09:19 (Milk Of Magnesia Liq) 30 ml Q12H PRN PO 04/10/17 19:30 (Senokot) 17.2 mg Q12H PRN PO 04/10/17 19:30 (Dulcolax Supp) 10 mg DAILY PRN RECTAL 04/10/17 19:30 (Lactulose Liq) 30 ml DAILY PRN PO 04/10/17 19:30 04/19/17 13:21 (Zyloprim) 300 mg DAILY PO 04/11/17 09:00 04/20/17 09:15 (Pill Splitter) 1 ea UNSCH PRN OTHER 04/10/17 20:00 04/11/17 20:26 Papaverine HCl 60 mg/Nitroglycerin 100 mcg/Diltiazem HCl 100 mg/Sodium Chloride 100 ml @ 0 mls/hr REGISTERED NURSE BONE MARROW TRANSPLANT IRRIGATION 04/13/17 17:30 04/20/17 17:29 04/16/17 08:19 Cefazolin Sodium 500 mg/Sodium Chloride 505 ml @ 0 mls/hr REGISTERED NURSE BONE MARROW TRANSPLANT IRRIGATION 04/13/17 17:30 04/20/17 17:29 04/16/17 08:15 Cefazolin Sodium/ Dextrose 50 ml @ 150 mls/hr REGISTERED NURSE BONE MARROW TRANSPLANT IV 04/13/17 17:30 04/20/17 17:29 04/16/17 07:30 (Hibiclens 4% Top Soln) 1 applic REGISTERED NURSE BONE MARROW TRANSPLANT TOPICAL 04/13/17 17:30 04/20/17 17:29 (NS Flush) 2 ml BID IV FLUSH 04/16/17 21:00 04/20/17 08:49 (NS Flush) 2 ml UNSCH PRN IV FLUSH 04/16/17 11:00 Albumin Human 250 ml @ 250 mls/hr UNSCH PRN IV 04/16/17 11:00 04/17/17 02:35 (Protonix) 40 mg DAILY@06 PO 04/17/17 06:00 04/20/17 05:55 (Reglan Inj) 10 mg ACHS IV PUSH 04/16/17 12:00 04/19/17 20:55 (Tylenol) 650 mg Q4H PRN PO 04/16/17 11:00 (Tylenol Supp) 650 mg Q4H PRN RECTAL 04/16/17 11:00 (Zofran Inj) 4 mg Q6H PRN IV PUSH 04/16/17 11:00 (Apresoline Inj) 10 mg Q4H PRN IV PUSH 04/16/17 11:00 (Lopressor Inj) 2.5 mg Q1H PRN IV PUSH 04/16/17 11:00 04/18/17 20:26 Potassium Chloride 100 ml @ 50 mls/hr UNSCH PRN IV 04/16/17 11:00 Potassium Chloride 100 ml @ 50 mls/hr UNSCH PRN IV 04/16/17 11:00 (KCl) 20 meq UNSCH PRN PO 04/16/17 11:00 (KCl) 40 meq UNSCH PRN PO 04/16/17 11:00 Magnesium Sulfate 2 gm/Sodium Chloride 104 ml @ 100 mls/hr UNSCH PRN IV 04/16/17 11:00 Magnesium Sulfate 2 gm/Sodium Chloride 104 ml @ 50 mls/hr UNSCH PRN IV 04/16/17 11:00 (Calcium Chloride Inj) 0.5 gm UNSCH PRN IV PUSH 04/16/17 11:00 (D50w (Vial) Inj) 50 ml UNSCH PRN IV PUSH 04/16/17 11:00 (Duoneb Neb) 1 ampule Q2HR NEB PRN NEB 04/16/17 11:00 04/18/17 08:56 (D50w (Vial) Inj) 50 ml UNSCH PRN IV PUSH 04/17/17 10:45 (Glucagon Inj) 1 mg UNSCH PRN OTHER 04/17/17 10:45 (Benadryl) 25 mg HS PRN PO 04/17/17 22:45 04/17/17 23:26 (NovoLOG SUPPLEMENTAL SCALE) 1 ACHS SQ 04/18/17 12:00 04/19/17 17:00 (Cordarone) 400 mg Q12HR PO 04/19/17 09:00 04/20/17 08:08 (Lasix Inj) 40 mg BID@09,18 IV PUSH 04/19/17 09:00 04/20/17 09:13 (KCl) 30 meq Q12HR PO 04/19/17 09:00 04/20/17 09:15 (Lipitor) 40 mg HS PO 04/19/17 21:00 04/19/17 20:53 (Eliquis) 5 mg BID PO 04/20/17 09:00 04/20/17 09:15 (Lopressor) 50 mg Q12HR PO 04/20/17 09:00 04/20/17 09:14 Vital Signs / I&O Vital Signs Date Time Temp Pulse Resp B/P (MAP) Pulse Ox O2 Delivery O2 Flow Rate FiO2 04/20/17 11:17 62 20 114/59 (77) 95 04/20/17 10:00 124 04/20/17 09:00 137 04/20/17 08:49 137 116/68 04/20/17 08:09 93 21 04/20/17 08:00 99 Room Air 04/20/17 08:00 77 04/20/17 07:40 98.1 79 18 140/64 (89) 94 04/20/17 07:00 81 04/20/17 06:08 77 04/20/17 05:28 76 04/20/17 04:12 73 04/20/17 03:40 97.8 78 18 154/72 (99) 95 04/20/17 03:40 95 Room Air 04/20/17 03:25 71 04/20/17 02:19 68 04/20/17 01:00 70 04/20/17 00:00 70 04/19/17 23:34 97.9 66 16 116/58 (77) 94 04/19/17 23:34 94 Room Air 04/19/17 23:00 69 04/19/17 22:00 72 04/19/17 22:00 21 04/19/17 21:15 76 04/19/17 20:20 74 04/19/17 19:35 76 04/19/17 19:35 98.0 80 18 149/67 (94) 92 04/19/17 19:35 92 Room Air 04/19/17 18:00 80 04/19/17 17:00 78 04/19/17 16:00 75 04/19/17 15:00 98.1 75 16 124/58 (80) 99 04/19/17 15:00 73 04/19/17 15:00 99 Room Air 04/19/17 14:00 76 04/19/17 13:00 75 I/O 04/19/17 04/19/17 04/19/17 04/20/17 04/20/17 04/20/17 07:00 15:00 23:00 07:00 15:00 23:00 Intake Total 480 ml 960 ml 480 ml 100 ml Output Total 365 ml 600 ml 1075 ml Balance 115 ml 360 ml -595 ml 100 ml Intake Oral 480 ml 960 ml 480 ml IV Total 0 ml 100 ml Output Urine Total 325 ml 600 ml 1075 ml Chest Tube Drainage Total 40 ml # Voids 2 # Bowel Movements 0 2 0 Physical Exam GENERAL: NAD, AAOx3 SKIN: Warm and dry. HEAD: Atraumatic. Normocephalic. EYES: Pupils equal and round. No scleral icterus. No injection or drainage. ENT: No nasal bleeding or discharge. Mucous membranes pink and moist. NECK: Trachea midline. No JVD. CARDIOVASCULAR: Irregularly irregular RESPIRATORY: No accessory muscle use. Clear to auscultation. Breath sounds equal bilaterally. GASTROINTESTINAL: Abdomen soft, non-tender, nondistended. Hepatic and splenic margins not palpable. MUSCULOSKELETAL: Extremities without clubbing, cyanosis, or edema. No obvious deformities. NEUROLOGICAL: Awake and alert. No obvious cranial nerve deficits. Motor grossly within normal limits. Five out of 5 muscle strength in the arms and legs. Normal speech. PSYCHIATRIC: Appropriate mood and affect; insight and judgment normal. Assessment and Plan Problem List: (1) Elevated troponin ICD Codes: R74.8 - Abnormal levels of other serum enzymes Status: Acute (2) Hypertensive urgency ICD Codes: I16.0 - Hypertensive urgency (3) CAD (coronary artery disease) ICD Codes: I25.10 - Atherosclerotic heart disease of [place] coronary artery without angina pectoris (4) Gout ICD Codes: M10.9 - Gout, unspecified Assessment and Plan 1) MVCAD s/p CABGx4 POD #4 MEDINA to LAD SVG to Diag SVG to OM SVG to PDA 2) EF 60-65% 3) Afib with RVR Amio 400mg BID, agree with increasing BB dose Hold discharge for now Started on Eliquis 4) Con't statin therapy with Lipitor 5) Follow up with Dr. Joiner in [place] on discharge Pietro Menon DO Apr 20, 2017 12:12
[2017-04-20] MEDS: ATORVASTATIN 40 MG TAB PO SCH (21:09)
[2017-04-21] VITALS (12 sets, daily range): BP systolic 126–132; BP diastolic 58–71; PULSE 64–76; RESP 16–18; TEMP 98.4–98.5; O2SAT 95–98
[2017-04-21] MEDS: PANTOPRAZOLE SOD 40 MG DELAYED RELEASE TAB PO SCH (06:28)
[2017-04-21] MEDS: METOCLOPRAMIDE HCL 10 MG/2 ML VIAL IV PUSH SCH (08:00)
[2017-04-21] MEDS: INDIVIDUALIZED INSULIN NOVOLOG SUPPLEMENTAL SCALE SQ SCH (08:00)
[2017-04-21] MEDS ORDERED: METO-309 PO (08:20)
[2017-04-21] MEDS ORDERED: PANT40TA3 PO (08:20)
[2017-04-21] MEDS ORDERED: PERC5TAB12 PO (08:20)
[2017-04-21] MEDS ORDERED: ATOR40TA16 PO (08:20)
[2017-04-21] MEDS ORDERED: APIX5TAB PO (08:20)
[2017-04-21] MEDS ORDERED: AMIO200T PO (08:20)
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
[2017-04-21] MEDS: METOPROLOL TARTRATE 50 MG TAB PO SCH (08:47)
[2017-04-21] MEDS: ASPIRIN EC 81 MG TABEC PO SCH (08:48)
[2017-04-21] MEDS: APIXABAN 5 MG TABLET PO SCH (08:48)
[2017-04-21] MEDS: AMIODARONE 200 MG TAB PO SCH (08:50)
[2017-04-21] MEDS: POTASSIUM CHLORIDE 10 MEQ CONTROLLED RELEASE TAB PO SCH (08:53)
[2017-04-21] MEDS: DOCUSATE SODIUM 50 MG/SENNA 8.6 MG TAB PO SCH (08:53)
[2017-04-21] MEDS: ALLOPURINOL 300 MG TAB PO SCH (08:53)
[2017-04-21] MEDS: FUROSEMIDE 40 MG/4 ML VIAL IV PUSH SCH (08:54)
[2017-04-21] MEDS: SODIUM CHLORIDE 0.9% FLUSH 10 ML FLUSH IV FLUSH SCH (08:55)
--- NOTE | 2017-04-21 16:13 | PD.CARD.PN ---
Subjective Subjective Remarks Patient was seen this morning No complaints, denies CP/SOB Up to the chair, walking with PT Telemetry showing normal sinus rhythm Objective Medications Current Medications Clonidine (Catapres) 0.1 mg ONCE ONCE PO Last administered on 04/10/17 17:28 ; Start 04/10/17 at 17:30; Stop 04/10/17 at 17:31; Status DC Meclizine HCl (Antivert) 25 mg ONCE ONCE PO Last administered on 04/10/17 17 :28; Start 04/10/17 at 17:30; Stop 04/10/17 at 17:31; Status DC Ondansetron HCl (Zofran Inj) 4 mg ONCE ONCE IV PUSH Last administered on 04/10 17:28; Start 04/10/17 at 17:30; Stop 04/10/17 at 17:31; Status DC Aspirin (Aspirin) 325 mg ONCE ONCE PO Last administered on 04/10/17 19:38; Start 04/10/17 at 19:15; Stop 04/10/17 at 19:16; Status DC Aspirin (Ecotrin Ec) 81 mg DAILY PO Last administered on 04/21/17 08:48; Start 04/11/17 at 09:00; Stop 04/21/17 at 11:03; Status DC Pravastatin Sodium (Pravachol) 40 mg DAILY PO Last administered on 04/19/17 09:19; Start 04/11/17 at 09:00; Stop 04/19/17 at 11:18; Status DC Metoprolol Tartrate (Lopressor) 12.5 mg Q12HR PO Last administered on 20:24; Start 04/10/17 at 21:00; Stop 04/12/17 at 08:57; Status DC Sodium Chloride 1,000 ml @ 100 mls/hr Q10H IV Last administered on 04/17/17 01:18; Start 04/10/17 at 19:18; Stop 04/18/17 at 10:28; Status DC Sodium Chloride (NS Flush) 2 ml UNSCH PRN IV FLUSH FLUSH AFTER USING IV ACCESS ; Start 04/10/17 at 19:30; Stop 04/16/17 at 11:36; Status DC Sodium Chloride (NS Flush) 2 ml BID IV FLUSH Last administered on 04/15/17 20 :18; Start 04/10/17 at 21:00; Stop 04/16/17 at 11:36; Status DC Ondansetron HCl (Zofran Inj) 4 mg Q6H PRN IVP NAUSEA OR VOMITING; Start at 19:30; Stop 04/16/17 at 11:35; Status DC Acetaminophen (Tylenol) 650 mg Q6H PRN PO FEVER/PAIN SCALE 1 TO 2; Start 04/10 at 19:30; Stop 04/16/17 at 11:34; Status DC Oxycodone/ Acetaminophen (Percocet 5-325 Mg) 1 tab Q6H PRN PO PAIN SCALE 3 TO 5 Last administered on 04/18/17 15:02; Start 04/10/17 at 19:30; Stop at 07:12; Status DC Morphine Sulfate (Morphine Inj) 2 mg Q3H PRN IV PUSH Pain 6-10; Start at 19:30; Stop 04/16/17 at 10:57; Status DC Senna/Docusate Sodium (Carrie-Colace) 1 tab BID PO Last administered on 08:53; Start 04/10/17 at 21:00; Stop 04/21/17 at 11:03; Status DC Magnesium Hydroxide (Milk Of Magnesia Liq) 30 ml Q12H PRN PO Mild constipation ; Start 04/10/17 at 19:30; Stop 04/21/17 at 11:03; Status DC Sennosides (Senokot) 17.2 mg Q12H PRN PO Moderate constipation; Start at 19:30; Stop 04/21/17 at 11:03; Status DC Bisacodyl (Dulcolax Supp) 10 mg DAILY PRN RECTAL SEVERE CONSITIPATION; Start 04/10/17 at 19:30; Stop 04/21/17 at 11:03; Status DC Lactulose (Lactulose Liq) 30 ml DAILY PRN PO SEVERE CONSITIPATION Last administered on 04/19/17 13:21; Start 04/10/17 at 19:30; Stop 04/21/17 at 11: 03; Status DC Allopurinol (Zyloprim) 300 mg DAILY PO Last administered on 04/21/17 08:53; Start 04/11/17 at 09:00; Stop 04/21/17 at 11:03; Status DC Miscellaneous (Pill Splitter) 1 ea UNSCH PRN OTHER SEE LABEL COMMENTS Last administered on 04/11/17 20:26; Start 04/10/17 at 20:00; Stop 04/21/17 at 11: 03; Status DC Pneumococcal Polyvalent Vaccine (Pneumovax-23 Inj) 25 mcg ONCE ONCE IM ; Start 04/11/17 at 10:00; Stop 04/11/17 at 10:01; Status DC Influenza Virus Vaccine (Flu (Quadrivalent) Vaccine Inj) 0.5 ml ONCE ONCE IM ; Start 04/11/17 at 10:00; Stop 04/11/17 at 10:01; Status DC Lisinopril (Prinivil) 10 mg DAILY PO Last administered on 04/11/17 12:13; Start 04/11/17 at 12:15; Stop 04/12/17 at 08:57; Status DC Losartan Potassium (Cozaar) 50 mg DAILY PO Last administered on 04/13/17 09: 00; Start 04/12/17 at 09:00; Stop 04/16/17 at 10:57; Status DC Regadenoson (Lexiscan Inj) 0.4 mg STK-MED ONCE IV Last administered on 11:56; Start 04/12/17 at 11:56; Stop 04/12/17 at 11:57; Status DC Metoprolol Tartrate (Lopressor) 50 mg Q12HR PO Last administered on 04/16/17 05:26; Start 04/12/17 at 21:00; Stop 04/16/17 at 10:57; Status DC Heparin Sodium/ Sodium Chloride 1,500 ml @ As Directed STK-MED ONCE .ROUTE Last administered on 04/13/17 08:40; Start 04/13/17 at 08:40; Stop 04/13/17 at 08:41; Status DC Midazolam HCl (Versed Inj) 2 mg STK-MED ONCE .ROUTE Last administered on 09:00; Start 04/13/17 at 08:41; Stop 04/13/17 at 08:42; Status DC Fentanyl Citrate (fentaNYL INJ) 100 mcg STK-MED ONCE .ROUTE Last administered on 04/13/17 08:59; Start 04/13/17 at 08:41; Stop 04/13/17 at 08:42; Status DC Verapamil HCl (Isoptin Inj) 5 mg STK-MED ONCE .ROUTE ; Start 04/13/17 at 08:41 ; Stop 04/13/17 at 08:42; Status DC Heparin Sodium (Porcine) (Heparin Inj) 10,000 units STK-MED ONCE .ROUTE ; Start 04/13/17 at 08:41; Stop 04/13/17 at 08:42; Status DC Nitroglycerin 5 ml @ As Directed STK-MED ONCE .ROUTE ; Start 04/13/17 at 08:41 ; Stop 04/13/17 at 08:42; Status DC Verapamil HCl (Isoptin Inj) 5 mg STK-MED ONCE .ROUTE ; Start 04/13/17 at 09:48 ; Stop 04/13/17 at 09:49; Status DC Cefazolin Sodium (Ancef Inj) 1,000 mg STK-MED ONCE .ROUTE ; Start 04/13/17 at 09:51; Stop 04/13/17 at 09:52; Status DC Ceftriaxone Sodium 1000 mg/ Sodium Chloride 100 ml @ 200 mls/hr Q24H IV Last administered on 04/15/17 15:06; Start 04/13/17 at 15:00; Stop 04/16/17 at 10 :57; Status DC Iohexol (OMNIPAQUE 350 INJ (Debt Recovery Officer)) 100 ml STK-MED ONCE OTHER ; Start at 13:47; Stop 04/13/17 at 13:48; Status DC Iohexol (OMNIPAQUE 350 INJ (Debt Recovery Officer)) 50 ml STK-MED ONCE OTHER ; Start at 13:47; Stop 04/13/17 at 13:48; Status DC Sodium Chloride (NS Flush) 2 ml BID IV FLUSH ; Start 04/13/17 at 21:00; Stop 04/16/17 at 12:02; Status DC Sodium Chloride (NS Flush) 2 ml UNSCH PRN IV FLUSH FLUSH AFTER USING IV ACCESS ; Start 04/13/17 at 17:30; Stop 04/16/17 at 12:02; Status DC Papaverine HCl 60 mg/Nitroglycerin 100 mcg/Diltiazem HCl 100 mg/Sodium Chloride 100 ml @ 0 mls/hr MINGLE OPERATOR IRRIGATION Last administered on 04/16/17 08:19; Start 04/13/17 at 17:30; Stop 04/20/17 at 17:29; Status DC Cefazolin Sodium 500 mg/Sodium Chloride 505 ml @ 0 mls/hr MINGLE OPERATOR IRRIGATION Last administered on 04/16/17 08:15; Start 04/13/17 at 17:30; Stop 04/20/17 at 17:29; Status DC Cefazolin Sodium/ Dextrose 50 ml @ 150 mls/hr MINGLE OPERATOR IV Last administered on 04/16/17 07:30; Start 04/13/17 at 17:30; Stop 04/20/17 at 17:29; Status DC Metoprolol Tartrate (Lopressor) 12.5 mg MINGLE OPERATOR PO ; Start 04/14/17 at 05:00; Stop 04/20/17 at 04:59; Status DC Chlorhexidine Gluconate (Hibiclens 4% Top Soln) 1 applic MINGLE OPERATOR TOPICAL ; Start 04/13/17 at 17:30; Stop 04/20/17 at 17:29; Status DC Insulin Human Regular 100 units/ Sodium Chloride 100 ml @ 3 mls/hr TITRATE PRN IV for blood glucose control Last administered on 04/16/17 12:26; Start 04/13 at 17:30; Stop 04/17/17 at 08:17; Status DC Dextrose (D50w (Syr) Inj) 50 ml UNSCH PRN IV PUSH HYPOGLYCEMIA-SEE COMMENTS; Start 04/13/17 at 17:30; Stop 04/16/17 at 11:35; Status DC Amlodipine Besylate (Norvasc) 5 mg DAILY PO ; Start 04/14/17 at 09:00; Stop at 09:00; Status DC Amlodipine Besylate (Norvasc) 5 mg BID PO Last administered on 04/15/17 20:18 ; Start 04/13/17 at 21:00; Stop 04/16/17 at 10:57; Status DC Clonidine (Catapres) 0.1 mg Q4H PRN PO SBP>160, DBP>90 Last administered on 23:23; Start 04/13/17 at 18:30; Stop 04/16/17 at 10:57; Status DC Potassium Chloride (KCl) 30 meq ONCE ONCE PO Last administered on 04/15/17 11:06; Start 04/15/17 at 10:00; Stop 04/15/17 at 10:01; Status DC Temazepam (Restoril) 7.5 mg ONCE ONCE PO Last administered on 04/15/17 22:02 ; Start 04/15/17 at 21:30; Stop 04/15/17 at 21:40; Status DC Heparin Sodium (Porcine) (Heparin Inj) 40,000 units STK-MED ONCE .ROUTE Last administered on 04/16/17 06:20; Start 04/16/17 at 06:20; Stop 04/16/17 at 06 :21; Status DC Methylprednisolone Sodium Succinate (SoluMEDROL INJ) 125 mg STK-MED ONCE .ROUTE ; Start 04/16/17 at 06:20; Stop 04/16/17 at 06:21; Status DC Vancomycin HCl (Vancomycin Inj) 4,000 mg STK-MED ONCE .ROUTE Last administered on 04/16/17 06:21; Start 04/16/17 at 06:21; Stop 04/16/17 at 06:22; Status DC Cefazolin Sodium/ Dextrose 50 ml @ As Directed STK-MED ONCE .ROUTE ; Start at 06:21; Stop 04/16/17 at 06:22; Status DC Albumin Human 100 ml @ As Directed STK-MED ONCE IV ; Start 04/16/17 at 06:41; Stop 04/16/17 at 06:42; Status DC Multi-Ingred Electrol/Mineral Irrig 2,000 ml @ As Directed STK-MED ONCE .ROUTE ; Start 04/16/17 at 06:41; Stop 04/16/17 at 06:42; Status DC Potassium Chloride (KCl Inj) 4 meq STK-MED ONCE .ROUTE ; Start 04/16/17 at 06: 43; Stop 04/16/17 at 06:44; Status DC Potassium Chloride (KCl Inj) 4 meq STK-MED ONCE .ROUTE ; Start 04/16/17 at 06: 43; Stop 04/16/17 at 06:44; Status DC Sodium Bicarbonate 100 ml @ As Directed STK-MED ONCE .ROUTE ; Start 04/16/17 at 06:44; Stop 04/16/17 at 06:45; Status DC Mannitol 100 ml @ As Directed STK-MED ONCE .ROUTE ; Start 04/16/17 at 06:44; Stop 04/16/17 at 06:45; Status DC Heparin Sodium (Porcine) (Heparin Inj) 20,000 units STK-MED ONCE .ROUTE ; Start 04/16/17 at 06:45; Stop 04/16/17 at 06:46; Status DC Dexmedetomidine HCl (Precedex Inj) 200 mcg STK-MED ONCE .ROUTE ; Start at 09:12; Stop 04/16/17 at 09:13; Status DC Sodium Chloride (NS Flush) 2 ml BID IV FLUSH Last administered on 04/21/17 08: 55; Start 04/16/17 at 21:00; Stop 04/21/17 at 11:03; Status DC Sodium Chloride (NS Flush) 2 ml UNSCH PRN IV FLUSH FLUSH AFTER USING IV ACCESS ; Start 04/16/17 at 11:00; Stop 04/21/17 at 11:03; Status DC Dexmedetomidine HCl 200 mcg/ Sodium Chloride 52 ml @ 4.73 mls/hr TITRATE PRN IV SEDATION; Start 04/16/17 at 11:00; Stop 04/17/17 at 08:17; Status DC Clevidipine 50 ml @ 2 mls/hr TITRATE PRN IV Maintain BP < 140/90 mmHg; Start 04/16/17 at 11:00; Stop 04/17/17 at 08:17; Status DC Albumin Human 250 ml @ 250 mls/hr UNSCH PRN IV SEE LABEL COMMENTS Last administered on 04/17/17 02:35; Start 04/16/17 at 11:00; Stop 04/21/17 at 11: 03; Status DC Lactated Ringer's 500 ml @ 500 mls/hr Q1H PRN IV SEE LABEL COMMENTS Last administered on 04/17/17 02:36; Start 04/16/17 at 10:52; Stop 04/17/17 at 08 :17; Status DC Miscellaneous Information (Post-op Orders (for Pharmacy)) STAT ONCE OTHER ; Start 04/16/17 at 11:00; Stop 04/16/17 at 11:38; Status DC Cefazolin Sodium 1000 mg/Sodium Chloride 100 ml @ 200 mls/hr Q8H IV Last administered on 04/17/17 23:26; Start 04/16/17 at 15:00; Stop 04/17/17 at 23 :29; Status DC Pantoprazole Sodium (Protonix) 40 mg DAILY@06 PO Last administered on 06:28; Start 04/17/17 at 06:00; Stop 04/21/17 at 11:03; Status DC Metoclopramide HCl (Reglan Inj) 10 mg ACHS IV PUSH Last administered on 21:11; Start 04/16/17 at 12:00; Stop 04/21/17 at 11:03; Status DC Amiodarone HCl (Cordarone) 200 mg Q12HR PO Last administered on 04/18/17 20: 22; Start 04/16/17 at 21:00; Stop 04/19/17 at 06:45; Status DC Acetaminophen (Tylenol) 650 mg Q4H PRN PO TEMPERATURE > 101 F; Start 04/16/17 at 11:00; Stop 04/21/17 at 11:03; Status DC Acetaminophen (Tylenol Supp) 650 mg Q4H PRN RECTAL TEMPERATURE > 101 F; Start 04/16/17 at 11:00; Stop 04/21/17 at 11:03; Status DC Acetaminophen 100 ml @ 400 mls/hr Q6H IV Last administered on 04/17/17 05:16 ; Start 04/16/17 at 12:00; Stop 04/17/17 at 06:14; Status DC Fentanyl Citrate (fentaNYL INJ) 25 mcg Q1H PRN IV PUSH BREAKTHROUGH PAIN; Start 04/16/17 at 11:00; Stop 04/19/17 at 07:12; Status DC Ondansetron HCl (Zofran Inj) 4 mg Q6H PRN IV PUSH NAUSEA OR VOMITING; Start at 11:00; Stop 04/21/17 at 11:03; Status DC Hydralazine HCl (Apresoline Inj) 10 mg Q4H PRN IV PUSH SEE LABEL COMMENTS; Start 04/16/17 at 11:00; Stop 04/21/17 at 11:03; Status DC Metoprolol Tartrate (Lopressor Inj) 2.5 mg Q1H PRN IV PUSH SEE LABEL COMMENTS Last administered on 04/18/17 20:26; Start 04/16/17 at 11:00; Stop 04/21/17 at 11:03; Status DC Potassium Chloride 100 ml @ 50 mls/hr UNSCH PRN IV SEE LABEL COMMENTS Last administered on 04/16/17 13:03; Start 04/16/17 at 11:00; Stop 04/16/17 at 13 :03; Status DC Potassium Chloride 100 ml @ 50 mls/hr UNSCH PRN IV SEE LABEL COMMENTS; Start 04/16/17 at 11:00; Stop 04/21/17 at 11:03; Status DC Potassium Chloride 100 ml @ 50 mls/hr UNSCH PRN IV SEE LABEL COMMENTS; Start 04/16/17 at 11:00; Stop 04/21/17 at 11:03; Status DC Potassium Chloride (KCl) 20 meq UNSCH PRN PO SEE LABEL COMMENTS; Start at 11:00; Stop 04/21/17 at 11:03; Status DC Potassium Chloride (KCl) 40 meq UNSCH PRN PO SEE LABEL COMMENTS; Start at 11:00; Stop 04/21/17 at 11:03; Status DC Magnesium Sulfate 2 gm/Sodium Chloride 104 ml @ 100 mls/hr UNSCH PRN IV SEE LABEL COMMENTS; Start 04/16/17 at 11:00; Stop 04/21/17 at 11:03; Status DC Magnesium Sulfate 2 gm/Sodium Chloride 104 ml @ 50 mls/hr UNSCH PRN IV SEE LABEL COMMENTS; Start 04/16/17 at 11:00; Stop 04/21/17 at 11:03; Status DC Calcium Chloride 1 gm/Sodium Chloride 110 ml @ 100 mls/hr UNSCH PRN IV SEE LABEL COMMENTS Last administered on 04/16/17 12:38; Start 04/16/17 at 11:00; Stop 04/16/17 at 12:39; Status DC Calcium Chloride (Calcium Chloride Inj) 0.5 gm UNSCH PRN IV PUSH SEE LABEL COMMENTS; Start 04/16/17 at 11:00; Stop 04/21/17 at 11:03; Status DC Insulin Human Regular 100 units/ Sodium Chloride 100 ml @ 3 mls/hr TITRATE PRN IV for blood glucose control; Start 04/16/17 at 11:00; Stop 04/17/17 at 08:17 ; Status DC Dextrose (D50w (Vial) Inj) 50 ml UNSCH PRN IV PUSH HYPOGLYCEMIA-SEE COMMENTS; Start 04/16/17 at 11:00; Stop 04/21/17 at 11:03; Status DC Sodium Bicarbonate (Sodium Bicarbonate 8.4% Inj) 50 meq UNSCH PRN IV PUSH SEE LABEL COMMENTS; Start 04/16/17 at 11:00; Stop 04/17/17 at 08:17; Status DC Sodium Bicarbonate (Sodium Bicarbonate 8.4% Inj) 100 meq UNSCH PRN IV PUSH SEE LABEL COMMENTS; Start 04/16/17 at 11:00; Stop 04/17/17 at 08:17; Status DC Albuterol/ Ipratropium (Duoneb Neb) 1 ampule Q6HR NEB NEB Last administered on 04/17/17 03:24; Start 04/16/17 at 16:00; Stop 04/17/17 at 08:17; Status DC Albuterol/ Ipratropium (Duoneb Neb) 1 ampule Q2HR NEB PRN NEB WHEEZING Last administered on 04/18/17 08:56; Start 04/16/17 at 11:00; Stop 04/21/17 at 11: 03; Status DC Racepinephrine (Racepinephrine 2.25% Neb) 0.5 ml UNSCH X1 PRN NEB STRIDOR; Start 04/16/17 at 11:30; Stop 04/16/17 at 23:59; Status DC Cefazolin Sodium (Ancef Inj) 1,000 mg STK-MED ONCE .ROUTE Last administered on 04/16/17 11:03; Start 04/16/17 at 11:01; Stop 04/16/17 at 11:02; Status DC Dextrose (D50w (Vial) Inj) 50 ml UNSCH PRN IV PUSH HYPOGLYCEMIA - SEE COMMENTS ; Start 04/17/17 at 10:45; Stop 04/21/17 at 11:03; Status DC Glucagon (Glucagon Inj) 1 mg UNSCH PRN OTHER HYPOGLYCEMIA-SEE COMMENTS; Start 04/17/17 at 10:45; Stop 04/21/17 at 11:03; Status DC Insulin Aspart (NovoLOG SUPPLEMENTAL SCALE) 1 Q4H SQ Last administered on 04/18 10:00; Start 04/17/17 at 14:00; Stop 04/18/17 at 10:28; Status DC Diphenhydramine HCl (Benadryl) 25 mg HS PRN PO INSOMNIA Last administered on 23:26; Start 04/17/17 at 22:45; Stop 04/21/17 at 11:03; Status DC Metoprolol Tartrate (Lopressor) 12.5 mg Q12HR PO Last administered on 20:22; Start 04/18/17 at 09:15; Stop 04/19/17 at 06:44; Status DC Insulin Aspart (NovoLOG SUPPLEMENTAL SCALE) 1 ACHS SQ Last administered on 17:00; Start 04/18/17 at 12:00; Stop 04/21/17 at 11:03; Status DC Amiodarone HCl 150 mg/Dextrose 100 ml @ 600 mls/hr NOW ONCE IV Last administered on 04/18/17 21:35; Start 04/18/17 at 21:15; Stop 04/18/17 at 21 :24; Status DC Amiodarone HCl 450 mg/Dextrose 250 ml @ 33.33 mls/ hr TITRATE PRN IV Per Protocol Last administered on 04/19/17 00:06; Start 04/18/17 at 22:45; Stop 04/19/17 at 07:12; Status DC Metoprolol Tartrate (Lopressor) 25 mg Q12HR PO Last administered on 04/20/17 08:09; Start 04/19/17 at 09:00; Stop 04/20/17 at 08:43; Status DC Amiodarone HCl (Cordarone) 400 mg Q12HR PO Last administered on 04/21/17 08:50 ; Start 04/19/17 at 09:00; Stop 04/21/17 at 11:03; Status DC Furosemide (Lasix Inj) 40 mg BID@09,18 IV PUSH Last administered on 04/21/17 08:54; Start 04/19/17 at 09:00; Stop 04/21/17 at 11:03; Status DC Potassium Chloride (KCl) 30 meq Q12HR PO Last administered on 04/21/17 08:53; Start 04/19/17 at 09:00; Stop 04/21/17 at 11:03; Status DC Atorvastatin Calcium (Lipitor) 40 mg HS PO Last administered on 04/20/17 21: 09; Start 04/19/17 at 21:00; Stop 04/21/17 at 11:03; Status DC Apixaban (Eliquis) 5 mg BID PO Last administered on 04/21/17 08:48; Start at 09:00; Stop 04/21/17 at 11:03; Status DC Amiodarone HCl 150 mg/Dextrose 100 ml @ 600 mls/hr NOW ONCE IV Last administered on 04/20/17 08:49; Start 04/20/17 at 08:45; Stop 04/20/17 at 08 :55; Status DC Magnesium Sulfate/ Dextrose 100 ml @ 100 mls/hr Q1H IV Last administered on 09:16; Start 04/20/17 at 08:45; Stop 04/20/17 at 10:44; Status DC Metoprolol Tartrate (Lopressor) 50 mg Q12HR PO Last administered on 04/21/17 08:47; Start 04/20/17 at 09:00; Stop 04/21/17 at 11:03; Status DC Vital Signs / I&O Vital Signs Date Time Temp Pulse Resp B/P (MAP) Pulse Ox O2 Delivery O2 Flow Rate FiO2 04/21/17 09:15 98 21 04/21/17 09:11 74 04/21/17 08:16 74 04/21/17 07:36 98.4 74 18 126/58 (80) 97 04/21/17 07:00 73 04/21/17 06:03 73 04/21/17 05:00 71 04/21/17 04:00 76 04/21/17 03:00 66 04/21/17 03:00 98.5 70 16 132/71 (91) 95 04/21/17 02:00 64 04/21/17 01:00 64 04/21/17 00:00 64 04/20/17 23:00 64 04/20/17 23:00 98.7 64 16 129/58 (81) 95 04/20/17 22:00 66 04/20/17 21:00 74 04/20/17 20:00 70 04/20/17 19:00 68 04/20/17 19:00 71 16 144/66 (92) 95 04/20/17 18:00 68 04/20/17 17:54 96 21 04/20/17 17:00 70 I/O 04/20/17 04/20/17 04/20/17 04/21/17 04/21/17 04/21/17 07:00 15:00 23:00 07:00 15:00 23:00 Intake Total 480 ml 100 ml 460 ml 360 ml Output Total 1075 ml 725 ml 450 ml Balance -595 ml 100 ml -265 ml -90 ml Intake Oral 480 ml 460 ml 360 ml IV Total 100 ml Output Urine Total 1075 ml 725 ml 450 ml # Voids 3 # Bowel Movements 0 1 Physical Exam GENERAL: NAD, AAOx3 SKIN: Warm and dry. HEAD: Atraumatic. Normocephalic. EYES: Pupils equal and round. No scleral icterus. No injection or drainage. ENT: No nasal bleeding or discharge. Mucous membranes pink and moist. NECK: Trachea midline. No JVD. CARDIOVASCULAR: RRR RESPIRATORY: No accessory muscle use. Clear to auscultation. Breath sounds equal bilaterally. GASTROINTESTINAL: Abdomen soft, non-tender, nondistended. Hepatic and splenic margins not palpable. MUSCULOSKELETAL: Extremities without clubbing, cyanosis, or edema. No obvious deformities. NEUROLOGICAL: Awake and alert. No obvious cranial nerve deficits. Motor grossly within normal limits. Five out of 5 muscle strength in the arms and legs. Normal speech. PSYCHIATRIC: Appropriate mood and affect; insight and judgment normal. Assessment and Plan Problem List: (1) Elevated troponin ICD Codes: R74.8 - Abnormal levels of other serum enzymes Status: Acute (2) Hypertensive urgency ICD Codes: I16.0 - Hypertensive urgency (3) CAD (coronary artery disease) ICD Codes: I25.10 - Atherosclerotic heart disease of [place] coronary artery without angina pectoris (4) Gout ICD Codes: M10.9 - Gout, unspecified Assessment and Plan 1) MVCAD s/p CABGx4 POD #5 MEDINA to LAD SVG to Diag SVG to OM SVG to PDA 2) EF 60-65% 3) Afib with RVR Amio 400mg BID, Lopressor Started on Eliquis 4) Con't statin therapy with Lipitor 5) Follow up with Dr. Joiner in [place] on discharge 6) Cardiovascularly stable for discharge Pietro Menon DO Apr 21, 2017 16:13
== END 2017-04-21 11:02 | disposition home health service (06) | DRG 234 ==
LOC: PHED 16:10 → PHEDA 19:21 → PHICU 20:30 → HDIC 04-13 08:18 → HCPC 04-13 16:27 → HCIS 04-16 07:59 → HCVI 04-16 11:47 → HCPC 04-17 18:34
PROVIDERS: ADMIT Thoracic Surgery (Cardiothoracic Vascular Surgery); ATTEND Thoracic Surgery (Cardiothoracic Vascular Surgery)
PROC: B2111ZZ Fluoroscopy of Multiple Coronary Arteries using Low Osmolar Contrast (ICD-10-PCS; 2017-04-13)
PROC: 021209W Bypass Coronary Artery, Three Arteries from Aorta with Autologous Venous Tissue, Open Approach (ICD-10-PCS; 2017-04-13)
PROC: 06BQ4ZZ Excision of Left Saphenous Vein, Percutaneous Endoscopic Approach (ICD-10-PCS; 2017-04-16)
PROC: 5A1221Z Performance of Cardiac Output, Continuous (ICD-10-PCS; 2017-04-16)
PROC: 02100Z9 Bypass Coronary Artery, One Artery from Left Internal Mammary, Open Approach (ICD-10-PCS; principal; 2017-04-16 07:30)
DX: I21.4 Non-ST elevation (NSTEMI) myocardial infarction (principal); L03.115 Cellulitis of right lower limb; I47.1 Supraventricular tachycardia; I25.10 Atherosclerotic heart disease of native coronary artery without angina pectoris; M10.9 Gout, unspecified; I16.0 Hypertensive urgency; R42 Dizziness and giddiness; I10 Essential (primary) hypertension; E78.5 Hyperlipidemia, unspecified; M19.90 Unspecified osteoarthritis, unspecified site; Z96.642 Presence of left artificial hip joint
CPT/HCPCS: 70450; 71010; 78452; 80048; 80053; 80061; 81001; 82550; 82948; 83036; 83735; 84100; 84439; 84443; 84484; 85025; 85027; 85610; 85730; 86850; 86900; 86901; 86920; 87641; 88305; 93005; 93017; 93306; 93454; 93880; 93970; 93998; 94002; 94010; 94150; 94640; 94664; 94667; 94668; 96374; 99152; 99153; A9502; C1769; C1893; J0131; J0282; J0690; J0696; J1644; J1815; J1817; J1940; J2150; J2250; J2405; J2440; J2765; J2785; J2930; J3010; J3370; J3475; J3480; J7030; J7060; J7120; P9045; P9047; Q9967

== ENCOUNTER 2017-04-29 12:56 | Emergency (ER) | payer MEDICARE ==
[~2017-04-29] VITALS: Ht 182.9 cm; Wt 94.0 kg
[~2017-04-29 12:56] MED LIST changes: -ALLO100T PO; +ALLO300T2 PO; +AMIO200T PO; +APIX5TAB PO; +ASPI1TAB56 PO; +ATOR40TA16 PO; +COZA50TA PO; -HYDR-3533 PO; +LIPI40TA PO; +METO-309 PO; -NAPR250T57 PO; +PANT40TA3 PO; +PERC5TAB12 PO
[2017-04-29 13:06] VITALS: BP 117/57; PULSE 54; RESP 20; O2SAT 96
[2017-04-29 13:11] VITALS: BP 117/57; PULSE 53; RESP 20; TEMP 97.5; O2SAT 96
[2017-04-29] MEDS ORDERED: SODIUM CHLORIDE 0.9% FLUSH 5 ML FLUSH IV FLUSH PRN (13:15)
[2017-04-29] MEDS ORDERED: SODIUM CHLOR 0.9% 250 ML INJ 250 ML IV ONE ×2 (13:15→15:45)
--- NOTE | 2017-04-29 13:25 | PD ---
HPI Chief Complaint: General Weakness Time Seen by Provider: 13:01 Travel History International Travel<30 days: No Contact w/Intl Traveler<30days: No Traveled to known affect area: No History of Present Illness HPI The patient is a 77-year-old male who presents to the emergency department via EMS from home or generalized weakness. The patient was admitted to the hospital March and underwent a [address] Miguel on April 16, 2017. The patient was discharged home on April 21. The patient states over the last several days he's had some increasing generalized weakness, shortness of breath with exertion, states he will walk from the living room to the kitchen and back, will complain of shortness of breath and mild diaphoresis. He does note mild nausea without any vomiting. The patient states he saw his primary physician several days ago he noted his systolic blood pressure was in the 90s and thought he may need a reduction in his blood pressure medications. He has a follow-up appointment with his cardiothoracic surgeon, Dr. Miguel, on May 04, 2017. The patient also notes that he has had mild dysphagia/dysarthria at times, the states he will be talking and all of a sudden will have difficulty getting the words out secondary to coughing /choking. He denies any focal deficits of the upper or lower extremities. The patient's blood pressures have ranged at home according to a blood pressure log the keeps, with systolic as low as 90 and a systolic as high as 160. Symptoms are moderate, possibly exacerbated by recent surgery, and there are no current alleviating factors. PFSH Past Medical History Hx Anticoagulant Therapy: Yes Depression: Yes (denies) Cancer: No Cardiovascular Problems: Yes High Cholesterol: Yes Diabetes: No Diminished Hearing: No Endocrine: No Gastrointestinal Disorders: Yes (GERD) GERD: Yes Gout: Yes Genitourinary: No Hepatitis: No Hiatal Hernia: No Hypertension: No Immune Disorder: No Musculoskeletal: Yes (ARTHRITIS) Neurologic: No Psychiatric: No Respiratory: No Immunizations Current: Yes Thyroid Disease: No Past Surgical History Abdominal Surgery: No AICD: No Body Medical Devices: LUMBAR HARDWARE Cardiac Surgery: No Ear Surgery: No Endocrine Surgery: No Eye Surgery: No Genitourinary Surgery: No Joint Replacement: Yes (LEFT HIP) Neurologic Surgery: No Oral Surgery: No Pacemaker: No Thoracic Surgery: No Other Surgery: Yes Social History Alcohol Use: No Tobacco Use: No Substance Use: No Allergies-Medications (Allergen,Severity, Reaction): Coded Allergies: No Known Allergies (Verified Adverse Reaction, Unknown, 04/29/17) Reported Meds & Prescriptions Reported Meds & Active Scripts Active Pantoprazole (Pantoprazole Sodium) 40 Mg Tab 40 Mg PO DAILY@06 Lopressor (Metoprolol Tartrate) 50 Mg Tab 50 Mg PO Q12HR Amiodarone (Amiodarone HCl) 200 Mg Tab 200 Mg PO Q12HR 28 Days Eliquis (Apixaban) 5 Mg Tab 5 Mg PO BID Lipitor (Atorvastatin Calcium) 40 Mg Tab 40 Mg PO HS Adult Aspirin EC Low Strength (Aspirin) 81 Mg Tabec 81 Mg PO DAILY Cozaar (Losartan Potassium) 50 Mg Tab 50 Mg PO DAILY Reported Allopurinol 300 Mg Tab 300 Mg PO DAILY Review of Systems Except as stated in HPI: all other systems reviewed are Neg General / Constitutional: No: Fever HENT: Positive: Lightheadedness Cardiovascular: Positive: Dyspnea on exertion, No: Chest Pain or Discomfort Respiratory: Positive: Shortness of Breath Gastrointestinal: Positive: Nausea, No: Vomiting Genitourinary: Positive: Frequency Musculoskeletal: Positive: Weakness Neurologic: Positive: Weakness Physical Exam Narrative GENERAL: Awake, alert, pleasant 77-year-old male who appears his stated age and is in no acute respiratory distress. SKIN: Focused skin assessment warm/dry. HEAD: Atraumatic. Normocephalic. EYES: No injection or drainage. ENT: No nasal bleeding or discharge. Mucous membranes pink and moist. NECK: Trachea midline. No JVD. CARDIOVASCULAR: Midline scar without any visible erythema or drainage. Bradycardic with a heart rate in the 50s. RESPIRATORY: No accessory muscle use. Minimally diminished breath sounds in the bases bilateral. GASTROINTESTINAL: Abdomen soft, non-tender, nondistended. No rebound tenderness.. MUSCULOSKELETAL: No obvious deformities. No clubbing. No cyanosis. Trace edema lower extremity is bilaterally, compression stockings in place. Ecchymosis noted over the medial distal left thigh. NEUROLOGICAL: Awake and alert. No obvious cranial nerve deficits. Motor grossly within normal limits. Normal speech. Nonfocal. Oriented 4. Follows commands without difficulty. PSYCHIATRIC: Appropriate mood and affect; insight and judgment normal. Data Data Last Documented VS Vital Signs Date Time Temp Pulse Resp B/P (MAP) Pulse Ox O2 Delivery O2 Flow Rate FiO2 04/29/17 13:18 52 18 96 Room Air 04/29/17 13:11 97.5 117/57 (77) Orders Orders Electrocardiogram (04/29/17 13:15) Complete Blood Count With Diff (04/29/17 13:15) Comprehensive Metabolic Panel (04/29/17 13:15) Creatine Kinase (Cpk) (04/29/17 13:15) Urinalysis - C+S If Indicated (04/29/17 13:15) Chest, Single Ap (04/29/17 13:15) Ct Brain W/O Iv Contrast(Rout) (04/29/17 13:15) Blood Glucose (04/29/17 13:15) Ecg Monitoring (04/29/17:15) Iv Access Insert/Monitor (04/29/17 13:15) Oximetry (04/29/17 13:15) Sodium Chloride 0.9% Flush (Ns Flush) (04/29/17 13:15) Sodium Chlor 0.9% 250 Ml Inj (Ns 250 Ml (04/29/17 13:15) Sodium Chlor 0.9% 250 Ml Inj (Ns 250 Ml (04/29/17 15:45) Ed Discharge Order (04/29/17 15:52) Labs Laboratory Tests Test 04/29/17 13:25 04/29/17 14:35 White Blood Count 15.5 TH/MM3 Red Blood Count 3.66 MIL/MM3 Hemoglobin 9.6 GM/DL Hematocrit 29.5 % Mean Corpuscular Volume 80.6 FL Mean Corpuscular Hemoglobin 26.3 PG Mean Corpuscular Hemoglobin Concent 32.6 % Red Cell Distribution Width 16.1 % Platelet Count 340 TH/MM3 Mean Platelet Volume 9.8 FL Neutrophils (%) (Auto) 85.5 % Lymphocytes (%) (Auto) 7.8 % Monocytes (%) (Auto) 5.6 % Eosinophils (%) (Auto) 0.3 % Basophils (%) (Auto) 0.8 % Neutrophils # (Auto) 13.2 TH/MM3 Lymphocytes # (Auto) 1.2 TH/MM3 Monocytes # (Auto) 0.9 TH/MM3 Eosinophils # (Auto) 0.1 TH/MM3 Basophils # (Auto) 0.1 TH/MM3 CBC Comment DIFF FINAL Differential Comment Blood Urea Nitrogen 28 MG/DL Creatinine 1.73 MG/DL Random Glucose 136 MG/DL Total Protein 6.9 GM/DL Albumin 3.1 GM/DL Calcium Level 8.7 MG/DL Alkaline Phosphatase 230 U/L Aspartate Amino Transf (AST/SGOT) 52 U/L Alanine Aminotransferase (ALT/SGPT) 93 U/L Total Bilirubin 0.8 MG/DL Sodium Level 131 MEQ/L Potassium Level 5.1 MEQ/L Chloride Level 97 MEQ/L Carbon Dioxide Level 24.7 MEQ/L Anion Gap 9 MEQ/L Estimat Glomerular Filtration Rate 39 ML/MIN Total Creatine Kinase 33 U/L Urine Color YELLOW Urine Turbidity CLEAR Urine pH 5.5 Urine Specific Centre 1.016 Urine Protein TRACE mg/dL Urine Glucose (UA) NEG mg/dL Urine Ketones NEG mg/dL Urine Occult Blood TRACE Urine Nitrite NEG Urine Bilirubin NEG Urine Urobilinogen LESS THAN 2.0 MG/DL Urine Leukocyte Esterase NEG Urine RBC 1 /hpf Urine WBC 1 /hpf Microscopic Urinalysis Comment CATH-CULT NOT IND MDM Medical Decision Making Medical Screen Exam Complete: Yes Emergency Medical Condition: Yes Medical Record Reviewed: Yes Interpretation(s) EKG reveals sinus bradycardia with first-degree AV block, NE will to her 21 ms. QTC 478 ms. Last Impressions Chest X-Ray 04/29/17 1315 Signed Impressions: Service Date/Time: April 13:26 - CONCLUSION: Left basilar/left lower lobe opacity representing either atelectasis or consolidation. Clarence Klein MD Laboratory Tests Test 04/29/17 13:25 04/29/17 14:35 White Blood Count 15.5 TH/MM3 Red Blood Count 3.66 MIL/MM3 Hemoglobin 9.6 GM/DL Hematocrit 29.5 % Mean Corpuscular Volume 80.6 FL Mean Corpuscular Hemoglobin 26.3 PG Mean Corpuscular Hemoglobin Concent 32.6 % Red Cell Distribution Width 16.1 % Platelet Count 340 TH/MM3 Mean Platelet Volume 9.8 FL Neutrophils (%) (Auto) 85.5 % Lymphocytes (%) (Auto) 7.8 % Monocytes (%) (Auto) 5.6 % Eosinophils (%) (Auto) 0.3 % Basophils (%) (Auto) 0.8 % Neutrophils # (Auto) 13.2 TH/MM3 Lymphocytes # (Auto) 1.2 TH/MM3 Monocytes # (Auto) 0.9 TH/MM3 Eosinophils # (Auto) 0.1 TH/MM3 Basophils # (Auto) 0.1 TH/MM3 CBC Comment DIFF FINAL Differential Comment Blood Urea Nitrogen 28 MG/DL Creatinine 1.73 MG/DL Random Glucose 136 MG/DL Total Protein 6.9 GM/DL Albumin 3.1 GM/DL Calcium Level 8.7 MG/DL Alkaline Phosphatase 230 U/L Aspartate Amino Transf (AST/SGOT) 52 U/L Alanine Aminotransferase (ALT/SGPT) 93 U/L Total Bilirubin 0.8 MG/DL Sodium Level 131 MEQ/L Potassium Level 5.1 MEQ/L Chloride Level 97 MEQ/L Carbon Dioxide Level 24.7 MEQ/L Anion Gap 9 MEQ/L Estimat Glomerular Filtration Rate 39 ML/MIN Total Creatine Kinase 33 U/L Urine Color YELLOW Urine Turbidity CLEAR Urine pH 5.5 Urine Specific Centre 1.016 Urine Protein TRACE mg/dL Urine Glucose (UA) NEG mg/dL Urine Ketones NEG mg/dL Urine Occult Blood TRACE Urine Nitrite NEG Urine Bilirubin NEG Urine Urobilinogen LESS THAN 2.0 MG/DL Urine Leukocyte Esterase NEG Urine RBC 1 /hpf Urine WBC 1 /hpf Microscopic Urinalysis Comment CATH-CULT NOT IND CT of the brain reveals no acute intracranial abnormalities Differential Diagnosis Differential diagnosis includes deconditioning, cardiomyopathy, pleural effusion , hyponatremia, UTI, pneumonia, subdural hemorrhage, medication side effect. Narrative Course IV was established, labs are drawn and sent, and the patient was placed on cardiac telemetry monitoring and continuous pulse oximetry monitoring. EKG was ordered and interpreted. Chest x-ray was obtained. CT the brain was ordered to rule out subdural hemorrhage as the patient is on Eliquis. UA was sent to lab. UA is unremarkable. Creatinine was elevated, just over 1.7, creatinine at discharge was under 1. The patient appears to have mild dehydration. Chest x-ray reveals questionable atelectasis versus consolidation, however, when I compared to previous chest x-ray during admission last month, x-ray appears to have improved. CT the brain is negative. I discussed the patient with his cardiothoracic surgeon, Dr. Miguel, and after discussion it was agreed the patient would be discharged home. The patient has a follow-up appointment on May 04. Diagnosis Primary Impression: Dehydration Additional Impression: Generalized weakness Patient Instructions: General Instructions Additional Instructions: Please provide a patient a copy of his labs, x-ray results, and CT results at discharge. Follow-up with your cardiothoracic surgeon as previously scheduled. Return if symptoms worsen or progress. Med/Other Pt SpecificInfo: Existing Med Changed (change metoprolol from 50 twice a day to 25 mg twice a day per your doctor's recommendations) Disposition: 01 DISCHARGE HOME Condition: Stable Shabbir Harris MD Apr 29, 2017 13:25
[2017-04-29 13:42] LABS: AUTOMATED NEUTROPHIL # 13.2 TH/MM3 (1.8-7.7); BASOPHIL # 0.1 TH/MM3 (0-0.2); BASOPHIL % 0.8 % (0.0-2.0); EOSINOPHIL # 0.1 TH/MM3 (0-0.4); EOSINOPHIL % 0.3 % (0.0-4.0); HEMATOCRIT 29.5 % (39.0-51.0); HEMO FLAGS DIFF FINAL; LYMPH % 7.8 % (9.0-44.0); LYMPHOCYTE # 1.2 TH/MM3 (1.0-4.8); MEAN CELL VOLUME 80.6 FL (80.0-100.0); MEAN CORPUSCULAR HEMOGLOBIN 26.3 PG (27.0-34.0); MEAN CORPUSCULAR HGB CONC 32.6 % (32.0-36.0); MONO % 5.6 % (0.0-8.0); NEUT % 85.5 % (16.0-70.0); PLATELET COUNT 340 TH/MM3 (150-450); RED BLOOD COUNT 3.66 MIL/MM3 (4.50-5.90); RED CELL DISTRIBUTION WIDTH 16.1 % (11.6-17.2); WHITE BLOOD COUNT 15.5 TH/MM3 (4.0-11.0)
--- NOTE | 2017-04-29 14:02 | RADRPT ---
EXAM DATE/TIME: 04/29/2017 13:26 [facility] COMPARISON: CHEST SINGLE AP, April 18, 2017, 19:54. 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 Gastroesophageal reflux disease. SURGICAL HISTORY : CABG. Fusion, lumbar. ENCOUNTER: Initial ACUITY: 2 weeks PAIN SCORE: 0/10 LOCATION: Bilateral chest FINDINGS: Portable AP view of the chest demonstrates stable enlargement of the cardiac silhouette. Median olivo otomy wires are present. There is a left basilar opacity partially obscuring the left hemidiaphragm. No pleural effusion or pneumothorax is visualized. The bones and soft tissues demonstrate no acute fi nding. CONCLUSION: Left basilar/left lower lobe opacity representing either atelectasis or consolidation. Clarence Klein MD on April 29, 2017 at 14:00 Board Certified Radiologist. This report was verified electronically.
[2017-04-29 14:06] LABS: ANION GAP 9 MEQ/L (5-15); AST (GOT) 52 U/L (15-37); BICARBONATE 24.7 MEQ/L (21.0-32.0); BLOOD UREA NITROGEN 28 MG/DL (7-18); CHLORIDE 97 MEQ/L (98-107); GLOMERULAR FILTRATION RATE 39 ML/MIN (>89); POTASSIUM 5.1 MEQ/L (3.5-5.1); SODIUM (NA) 131 MEQ/L (136-145)
[2017-04-29 14:11] LABS: ALKALINE PHOSPHATASE 230 U/L (45-117); ALT (GPT) 93 U/L (12-78); TOTAL BILIRUBIN ADULT 0.8 MG/DL (0.2-1.0)
[2017-04-29 14:13] LABS: CREATINE KINASE 33 U/L (39-308)
[2017-04-29 15:13] LABS: BLOOD, URINE TRACE (NEG); COMMENT (UR) CATH-CULT NOT IND; CULTURE IF INDICATED CATH CULTURE NOT IND; GLUCOSE,URINE NEG (NEG); KETONE, URINE NEG (NEG); NITRITE,URINE NEG (NEG); PH, URINE 5.5 (5.0-8.5); URINE COLOR YELLOW (YELLW/STRAW)
--- NOTE | 2017-04-29 15:26 | RADRPT ---
EXAM DATE/TIME: 04/29/2017 14:43 [facility] COMPARISON: CT BRAIN W/O CONTRAST, April 10, 2017, 17:37. INDICATIONS : Generalized weakness RADIATION DOSE: 39.90 CTDIvol (mGy) MEDICAL HISTORY : Hypertension. SURGICAL HISTORY : CABG ENCOUNTER: Initial ACUITY: 2 days PAIN SCALE: 0/10 LOCATION: abdomen TECHNIQUE: Multiple contiguous axial images were obtained of the head. Using automated exposure control and adj ustment of the mA and/or kV according to patient size, radiation dose was kept as low as reasonably a chievable to obtain optimal diagnostic quality images. DICOM format image data is available electro nically for review and comparison. FINDINGS: There is stable mild central and cortical atrophic change. There is no evidence of intracranial mass or hemorrhage. There is nothing to suggest acute infarction. There is stable mild periventricular whi te matter hypodensity. Extracranial structures are stable and benign. CONCLUSION: No acute intracranial findings Clarence Soto MD on April 29, 2017 at 15:09 Board Certified Radiologist. This report was verified electronically.
--- NOTE | 2017-04-30 18:24 | EKG ---
Date Performed: 04/29/2017 Time Performed: 13:16:08 PTAGE: 77 years EKG: SINUS BRADYCARDIA WITH FIRST DEGREE AV BLOCK PROLONGED QT INTERVAL ABNORMAL ECG PREVIOUS TRACING : 04/17/2017 04.36 DOCTOR: Betty oBo Interpretating Date/Time 04/30/2017 18:17:21
== END 2017-04-29 16:53 | disposition home or self-care (01) ==
LOC: NEPC 12:56
DX: E86.0 Dehydration (principal); I25.10 Atherosclerotic heart disease of native coronary artery without angina pectoris; I10 Essential (primary) hypertension; I44.0 Atrioventricular block, first degree; Z95.1 Presence of aortocoronary bypass graft; E78.00 Pure hypercholesterolemia, unspecified; K21.9 Gastro-esophageal reflux disease without esophagitis; M10.9 Gout, unspecified
CPT/HCPCS: 70450; 71010; 80053; 81001; 82550; 85025; 93005; 96360; 96361; 99285; J7050